=== PATIENT | male | born 1985 | race Caucasian/White ===

== ENCOUNTER 2019-11-09 05:57 | Emergency (ER) | payer SELFPAY ==
[~2019-11-09] VITALS: Ht 177.8 cm; Wt 120.7 kg
[2019-11-09] MEDS ORDERED: IV NORMAL SALINE 1000ML BAG 1,000 ML IV ONE (06:30)
[2019-11-09 06:45] LABS: BASO % 0 % (0-3); EOS % 1 % (0-3); HEMATOCRIT 39.9 % (39.0-53.0); HEMOGLOBIN 13.3 g/dL (13.0-17.5); LYMPH # 0.8 x10^3/uL (1.0-4.8); LYMPH % 16 % (24-48); MEAN CORPUSCULAR HEMOGLOBIN 28 pg (25-35); MEAN CORPUSCULAR HGB CONC 33 g/dL (31-37); MEAN CORPUSCULAR VOLUME 83 fL (79-100); MONO # 0.3 x10^3/uL (0.0-1.1); MONO % 5 % (0-9); NEUT % 78 % (31-73); PLATELET COUNT 288 x10^3/uL (140-400); WHITE BLOOD COUNT 5.2 x10^3/uL (4.0-11.0)
[2019-11-09 06:47] LABS: BILIRUBIN,URINE NEGATIVE (NEG); CLARITY,URINE CLEAR; COLOR,URINE YELLOW; NITRITE,URINE NEGATIVE (NEG); PH,URINE 6.5; PROTEIN,URINE NEGATIVE (NEG-TRACE)
[2019-11-09 06:55] LABS: BACTERIA,URINE 0 /HPF (0-FEW); RBC,URINE 0 /HPF (0-2); SQUAMOUS EPITHELIAL CELL,UR OCC /LPF; WBC,URINE OCC /HPF (0-4)
[2019-11-09 06:59] LABS: CALCIUM 8.7 mg/dL (8.5-10.1); CREATININE 0.8 mg/dL (0.7-1.3); POTASSIUM 3.4 mmol/L (3.5-5.1)
[2019-11-09] MEDS ORDERED: ONDANSETRON PF 4 MG/2 ML VIAL. IV ONE (07:00)
[2019-11-09 07:05] LABS: ALBUMIN 3.8 g/dL (3.4-5.0); TOTAL BILIRUBIN 0.3 mg/dL (0.2-1.0); TOTAL PROTEIN 7.6 g/dL (6.4-8.2)
--- NOTE | 2019-11-09 08:44 | PHYS DOC ---
Past Medical History Past Medical History: Diabetes-Type II, Seizure Past Surgical History: Other Additional Past Surgical Histo: RIGHT WRIST, B KNEE Alcohol Use: Rarely Drug Use: None Adult General Chief Complaint Chief Complaint: HYPOGLYCEMIA HPI HPI Patient is a 34 year old was brought here by EMS for evaluation of low blood sugar. Patient said he has history of diabetes, on insulin at home. Patient did not eat much last night, has some cramming his leg, woke up this morning with more cramming and feel really weak, family checked his blood sugar and it was in the 40s. Patient was given some juice to drink at home but his blood sugar continued to be low in the 50. EMS were called, they gave him an injection of glucagon. They checked his blood sugar on route here and it was 320. She denies any abdominal pain, no chest pain, no trouble breathing, no headache. All other ROS is negative unless otherwise noted in HPI Review of Systems Review of Systems See above Current Medications Current Medications Current Medications Medications (Trade) Dose Ordered Sig/Fausto Start Time Stop Time Status Last Admin Dose Admin Ondansetron HCl (Zofran) 4 mg 1X ONCE 11/09/19 07:00 11/09/19 07:01 DC Sodium Chloride 1,000 ml @ 1,000 mls/hr 1X ONCE 11/09/19 06:30 11/09/19 07:29 DC 11/09/19 06:30 1,000 MLS/HR Allergies Allergies Allergies Coded Allergies Type Severity Reaction Last Updated Verified No Known Drug Allergies 11/09/19 No Physical Exam Physical Exam See above Constitutional: Well developed, well nourished, no acute distress, non-toxic a ppearance. [] HENT: Normocephalic, atraumatic, bilateral external ears normal, oropharynx moist, no oral exudates, nose normal. [] Eyes: PERRLA, EOMI, conjunctiva normal, no discharge. [] Neck: Normal range of motion, no tenderness, supple, no stridor. [] Cardiovascular:Heart rate regular rhythm, no murmur [] Lungs & Thorax: Bilateral breath sounds clear to auscultation [] Abdomen: Bowel sounds normal, soft, no tenderness, no masses, no pulsatile masses. [] Skin: Warm, dry, no erythema, no rash. [] Back: No tenderness, no CVA tenderness. [] Extremities: No tenderness, no cyanosis, no clubbing, ROM intact, no edema. [] Neurologic: Alert and oriented X 3, normal motor function, normal sensory function, no focal deficits noted. [] Psychologic: Affect normal, judgement normal, mood normal. [] Current Patient Data Vital Signs Vital Signs Date Time Temp Pulse Resp B/P (MAP) Pulse Ox O2 Delivery O2 Flow Rate FiO2 11/09/19 08:54 87 20 131/75 (93) Room Air 11/09/19 07:33 98 11/09/19 06:11 98.0 98.0 Lab Values Laboratory Tests Test 11/09/19 06:05 11/09/19 06:06 11/09/19 06:30 11/09/19 08:01 White Blood Count 5.2 x10^3/uL (4.0-11.0) Red Blood Count 4.80 x10^6/uL (4.30-5.70) Hemoglobin 13.3 g/dL (13.0-17.5) Hematocrit 39.9 % (39.0-53.0) Mean Corpuscular Volume 83 fL (79-100) Mean Corpuscular Hemoglobin 28 pg (25-35) Mean Corpuscular Hemoglobin Concent 33 g/dL (31-37) Red Cell Distribution Width 14.0 % (11.5-14.5) Platelet Count 288 x10^3/uL (140-400) Neutrophils (%) (Auto) 78 % (31-73) H Lymphocytes (%) (Auto) 16 % (24-48) L Monocytes (%) (Auto) 5 % (0-9) Eosinophils (%) (Auto) 1 % (0-3) Basophils (%) (Auto) 0 % (0-3) Neutrophils # (Auto) 4.0 x10^3/uL (1.8-7.7) Lymphocytes # (Auto) 0.8 x10^3/uL (1.0-4.8) L Monocytes # (Auto) 0.3 x10^3/uL (0.0-1.1) Eosinophils # (Auto) 0.0 x10^3/uL (0.0-0.7) Basophils # (Auto) 0.0 x10^3/uL (0.0-0.2) Sodium Level 141 mmol/L (136-145) Potassium Level 3.4 mmol/L (3.5-5.1) L Chloride Level 104 mmol/L (98-107) Carbon Dioxide Level 30 mmol/L (21-32) Anion Gap 7 (6-14) Blood Urea Nitrogen 12 mg/dL (8-26) Creatinine 0.8 mg/dL (0.7-1.3) Estimated GFR (Cockcroft-Gault) 110.0 BUN/Creatinine Ratio 15 (6-20) Glucose Level 183 mg/dL (70-99) H Calcium Level 8.7 mg/dL (8.5-10.1) Total Bilirubin 0.3 mg/dL (0.2-1.0) Aspartate Amino Transferase (AST) 43 U/L (15-37) H Alanine Aminotransferase (ALT) 45 U/L (16-63) Alkaline Phosphatase 55 U/L (46-116) Total Protein 7.6 g/dL (6.4-8.2) Albumin 3.8 g/dL (3.4-5.0) Albumin/Globulin Ratio 1.0 (1.0-1.7) Glucose (Fingerstick) 146 mg/dL (70-99) H 300 mg/dL (70-99) H Urine Collection Type Unknown Urine Color Yellow Urine Clarity Clear Urine pH 6.5 Urine Specific [place] 1.010 Urine Protein Negative mg/dL (NEG-TRACE) Urine Glucose (UA) Negative mg/dL (NEG) Urine Ketones (Stick) Negative mg/dL (NEG) Urine Blood Negative (NEG) Urine Nitrite Negative (NEG) Urine Bilirubin Negative (NEG) Urine Urobilinogen Dipstick 1.0 mg/dL (0.2 mg/dL) Urine Leukocyte Esterase Negative (NEG) Urine RBC 0 /HPF (0-2) Urine WBC Occ /HPF (0-4) Urine Squamous Epithelial Cells Occ /LPF Urine Bacteria 0 /HPF (0-FEW) Laboratory Tests 11/09/19 06:05 Laboratory Tests 11/09/19 06:05 EKG EKG [] Radiology/Procedures Radiology/Procedures [] Course & Med Decision Making Course & Med Decision Making Pertinent Labs and Imaging studies reviewed. (See chart for details) he was given food to eat in the ER, his blood sugar had been stabilized. Patient will be discharged home. Dragon Disclaimer Dragon Disclaimer This electronic medical record was generated, in whole or in part, using a voice recognition dictation system. Departure Departure Impression: Primary Impression: Hypoglycemia Disposition: 01 HOME, SELF-CARE Condition: IMPROVED Referrals: UNKNOWN PCP NAME (PCP) follow up with your doctor this week. Patient Instructions: Hypoglycemia (Low Blood Sugar) KIM JUNE DO Nov 09, 2019 08:44
[2019-11-09 08:54] VITALS: BP 131/75
== END 2019-11-09 10:20 | disposition home or self-care (01) ==
LOC: ER 05:57
DX: E11.649 Type 2 diabetes mellitus with hypoglycemia without coma (principal); Z98.890 Other specified postprocedural states
CPT/HCPCS: 36415; 80053; 81001; 82962; 85025; 96360; 99284; J7030

== ENCOUNTER 2020-03-09 00:33 | Emergency (ER) | payer SELFPAY ==
[~2020-03-09] VITALS: Ht 177.8 cm; Wt 104.6 kg
[~2020-03-09 00:33] MED LIST: INSU100I13 SQ; INSU100I17 SQ
--- NOTE | 2020-03-09 00:43 | PHYS DOC ---
Past Medical History Past Medical History: Diabetes-Type I, Seizure Past Surgical History: Other Additional Past Surgical Histo: RIGHT WRIST, B KNEE Smoking Status: Never Smoker Alcohol Use: Rarely Drug Use: None General Adult EDM: Chief Complaint: HYPOGLYCEMIA HPI: HPI: Patient is a 34 year old male who presents with report of hypoglycemia and seizure activity this evening. Patient indicates that he has history of seizures and states that his last seizure was at least a couple months ago. Patient admits that he has not been taking his Dilantin for the last few days. He states that he tries to remember to take it but just doesn't always remember. He does admit to some tongue pain where he bit his tongue. He also admits to some all over body aches.[] Review of Systems: Review of Systems: Constitutional: Denies fever or chills. [] Respiratory: Denies cough or shortness of breath. [] Cardiovascular: Denies chest pain or edema. [] GI: Denies abdominal pain, nausea, vomiting, bloody stools or diarrhea. [] Musculoskeletal: Complains of back pain. [] Integument: Denies rash. [] Neurologic: Denies headache, focal weakness or sensory changes. Positive seizure activity. [] A full 10 point review of systems has been reviewed and is otherwise negative. Heart Score: Risk Factors: Risk Factors: DM, Current or recent (<one month) smoker, HTN, HLP, family history of CAD, obesity. Risk Scores: Score 0 - 3: 2.5% MACE over next 6 weeks - Discharge Home Score 4 - 6: 20.3% MACE over next 6 weeks - Admit for Clinical Observation Score 7 - 10: 72.7% MACE over next 6 weeks - Early Invasive Strategies Allergies: Allergies: Allergies Coded Allergies Type Severity Reaction Last Updated Verified No Known Drug Allergies 11/09/19 No Physical Exam: PE: Constitutional: Well developed, well nourished, no acute distress, non-toxic gregorio earance. [] HENT: Normocephalic, atraumatic, bilateral external ears normal, oropharynx moist, no oral exudates, nose normal. [] Eyes: PERRLA, EOMI, conjunctiva normal, no discharge. [] Neck: Normal range of motion, no tenderness, supple, no stridor. [] Cardiovascular: Regular rate and rhythm[] Lungs & Thorax: Bilateral breath sounds clear to auscultation [] Abdomen: Bowel sounds normal, soft, no tenderness. [] Skin: Warm, dry, no erythema, no rash. [] Extremities: No tenderness, no cyanosis, no clubbing, ROM intact. [] Neurologic: Alert and oriented X 3, no focal deficits noted. [] EKG: EKG: [] Radiology/Procedures: Radiology/Procedures: [] Course & Med Decision Making: Course & Med Decision Making Pertinent Labs and Imaging studies reviewed. (See chart for details) [] Dragon Disclaimer: Dragon Disclaimer: This electronic medical record was generated, in whole or in part, using a voice recognition dictation system. Departure Departure Impression: Primary Impression: Seizure Disposition: HOME, SELF-CARE Condition: STABLE Referrals: UNKNOWN PCP NAME (PCP) Patient Instructions: Seizure, Adult KANWAL MEDINA Jr. DO Mar 09, 2020 00:43
[2020-03-09 01:14] LABS: BASO % 1 % (0-3); EOS # 0.4 x10^3/uL (0.0-0.7); EOS % 5 % (0-3); HEMATOCRIT 35.5 % (39.0-53.0); HEMOGLOBIN 11.9 g/dL (13.0-17.5); LYMPH # 1.6 x10^3/uL (1.0-4.8); LYMPH % 21 % (24-48); MEAN CORPUSCULAR HEMOGLOBIN 28 pg (25-35); MEAN CORPUSCULAR HGB CONC 34 g/dL (31-37); MEAN CORPUSCULAR VOLUME 83 fL (79-100); MONO # 0.4 x10^3/uL (0.0-1.1); MONO % 5 % (0-9); NEUT # 5.2 x10^3/uL (1.8-7.7); NEUT % 68 % (31-73); PLATELET COUNT 213 x10^3/uL (140-400); RED BLOOD COUNT 4.26 x10^6/uL (4.30-5.70); RED CELL DISTRIBUTION WIDTH 14.1 % (11.5-14.5); WHITE BLOOD COUNT 7.6 x10^3/uL (4.0-11.0)
[2020-03-09 01:24] LABS: ANION GAP 10 (6-14); BLOOD UREA NITROGEN 12 mg/dL (8-26); BUN/CREATININE RATIO 15 (6-20); CALCIUM 8.4 mg/dL (8.5-10.1); CARBON DIOXIDE 28 mmol/L (21-32); CHLORIDE 101 mmol/L (98-107); CREATININE 0.8 mg/dL (0.7-1.3); GLUCOSE 133 mg/dL (70-99); POTASSIUM 3.8 mmol/L (3.5-5.1); SODIUM 139 mmol/L (136-145)
[2020-03-09 01:29] LABS: ALBUMIN 3.8 g/dL (3.4-5.0); ALBUMIN/GLOBULIN RATIO 1.4 (1.0-1.7); ALK PHOS 53 U/L (46-116); ALT (SGPT) 27 U/L (16-63); AST (SGOT) 18 U/L (15-37); TOTAL BILIRUBIN 0.4 mg/dL (0.2-1.0); TOTAL PROTEIN 6.5 g/dL (6.4-8.2)
[2020-03-09 01:32] LABS: PHENY < 0.5 mcg/mL (10.0-20.0)
[2020-03-09] MEDS ORDERED: FOSPHENYTOIN 1,000 MG in IV NORMAL SALINE 50ML 50 ML IV ONE (02:00)
[2020-03-09 02:42] VITALS: BP 115/58
== END 2020-03-09 03:00 | disposition home or self-care (01) ==
LOC: ER 00:33
DX: R56.9 Unspecified convulsions (principal); E10.649 Type 1 diabetes mellitus with hypoglycemia without coma; K14.6 Glossodynia; Z98.890 Other specified postprocedural states
CPT/HCPCS: 36415; 80053; 80185; 82962; 85025; 96365; 99285; Q2009

== ENCOUNTER 2020-09-25 13:04 | Emergency (ER) | payer SELFPAY ==
[~2020-09-25] VITALS: Ht 180.3 cm; Wt 104.0 kg
[2020-09-25 13:52] LABS: CALCIUM 8.8 mg/dL (8.5-10.1); CREATININE 0.8 mg/dL (0.7-1.3); GFR 109.4; POTASSIUM 3.4 mmol/L (3.5-5.1)
[2020-09-25 14:06] VITALS: BP 113/82
--- NOTE | 2020-09-25 14:56 | ED.ADGEN ---
Past Medical History Past Medical History: Diabetes-Type I, Seizure Past Surgical History: Other Additional Past Surgical Histo: RIGHT WRIST, BILATERAL KNEE Smoking Status: Never Smoker Alcohol Use: Rarely Drug Use: None General Adult EDM: Chief Complaint: HYPOGLYCEMIA HPI: HPI: Patient is a 35-year-old male with type 1 diabetes who presents to the emergency room after having an episode of hypoglycemia. Patient states he took his home insulin and was good to go have blood discharge but got distracted. Upon EMS arrival he had a glucose of 23. He was given glucose tablets. Upon arrival to the emergency room he is a glucose of 80 after treatment by EMS. He has no fur ther complaints. He has not had any recent insulin changes. Review of Systems: Review of Systems: General: Denies fever, chills, sweats, fatigue Eyes: Denies drainage, blurred vision, eye redness HENT: Denies rhinorrhea, sore throat, earache Respiratory: Denies cough, shortness of breath, wheezing Cardiac: Denies edema, palpitations, chest pain GI: Denies abdominal pain, Nausea, vomiting MSK: Denies back pain, neck pain Skin: Denies rash, jaundice Neuro: Denies headache, dizziness Psychiatric: Denies SI/HI Allergies: Allergies: Allergies Coded Allergies Type Severity Reaction Last Updated Verified No Known Drug Allergies 11/09/19 No Physical Exam: PE: General: Awake, alert, NAD. Well Nourished, well hydrated. Cooperative HEENT: Atraumatic, EOMI, PERRL, airway patent, moist oral mucosa Neck: Supple, trachea midline Respiratory: CTA bilaterally, normal effort, no wheezing/crackles CV: RRR, no murmur, cap refill <2 GI: Soft, nondistended, nontender, no masses MSK: No obvious deformities Skin: Warm, dry, intact Neuro: A&O x3, speech NL, sensory and motor grossly intact, no focal deficits Psych: Normal affect, normal mood, not suicidal or homicidal Current Patient Data: Labs: Laboratory Tests Test 09/25/20 13:09 09/25/20 13:10 09/25/20 14:42 Glucose (Fingerstick) 80 mg/dL (70-99) 109 mg/dL (70-99) H Sodium Level 142 mmol/L (136-145) Potassium Level 3.4 mmol/L (3.5-5.1) L Chloride Level 103 mmol/L (98-107) Carbon Dioxide Level 31 mmol/L (21-32) Anion Gap 8 (6-14) Blood Urea Nitrogen 14 mg/dL (8-26) Creatinine 0.8 mg/dL (0.7-1.3) Estimated GFR (Cockcroft-Gault) 109.4 Glucose Level 48 mg/dL (70-99) L Calcium Level 8.8 mg/dL (8.5-10.1) Laboratory Tests 09/25/20 13:10 Vital Signs: Vital Signs Date Time Temp Pulse Resp B/P (MAP) Pulse Ox O2 Delivery O2 Flow Rate FiO2 09/25/20 13:10 61 16 129/74 (92) 99 Room Air EKG: EKG: [] Heart Score: Risk Factors: Risk Factors: DM, Current or recent (<one month) smoker, HTN, HLP, family history of CAD, obesity. Risk Scores: Score 0 - 3: 2.5% MACE over next 6 weeks - Discharge Home Score 4 - 6: 20.3% MACE over next 6 weeks - Admit for Clinical Observation Score 7 - 10: 72.7% MACE over next 6 weeks - Early Invasive Strategies Radiology/Procedures: Radiology/Procedures: [] Course & Med Decision Making: Course & Med Decision Making Pertinent Labs and Imaging studies reviewed. (See chart for details) Patient is 35-year-old male who presents to the emergency room after an episode of hypoglycemia. Patient is feeling much better after treatment. He will be given food here in the emergency room and then rechecked. Repeat glucose was normal at that he remained stable at this time. [id number] Patient's test results and vitals while in the ED were fully reviewed and discussed with the patient. Patient is stable and at this time does not need admission to the [facility]. We have discussed strict return precautions and the importance of following up with their Primary Care Physician. Patient stated understanding and was given an opportunity to ask any questions. Patient is in agreement with plan. Dragon Disclaimer: Dragon Disclaimer: This electronic medical record was generated, in whole or in part, using a voice recognition dictation system. Departure Departure Impression: Primary Impression: Hypoglycemia Disposition: 01 DC HOME SELF CARE/HOMELESS Condition: STABLE Referrals: SYL HOLLAND MD (PCP) Patient Instructions: Hypoglycemia (Low Blood Sugar) DELANEY MYERS MD Sep 25, 2020 14:56
[2020-09-25 15:46] LABS: BILIRUBIN,URINE NEGATIVE (NEG); CLARITY,URINE CLEAR; COLOR,URINE YELLOW; NITRITE,URINE NEGATIVE (NEG); PH,URINE 6.5 (<5.0-8.0); PROTEIN,URINE NEGATIVE (NEG-TRACE)
[2020-09-25 15:53] LABS: BACTERIA,URINE 0 /HPF (0-FEW); RBC,URINE 0 /HPF (0-2); WBC,URINE 0 /HPF (0-4)
== END 2020-09-25 15:59 | disposition home or self-care (01) ==
LOC: ER 13:04
DX: E10.649 Type 1 diabetes mellitus with hypoglycemia without coma (principal); Z79.4 Long term (current) use of insulin
CPT/HCPCS: 36415; 80048; 81001; 82962; 99283

== ENCOUNTER 2020-11-06 06:42 | Emergency (ER) | payer SELFPAY ==
[~2020-11-06] VITALS: Ht 177.8 cm; Wt 102.3 kg
[2020-11-06 06:46] VITALS: BP 139/63
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
[2020-11-06 08:16] LABS: BASO % 0 % (0-3); EOS # 0.1 x10^3/uL (0.0-0.7); EOS % 1 % (0-3); HEMATOCRIT 39.9 % (39.0-53.0); HEMOGLOBIN 13.6 g/dL (13.0-17.5); LYMPH % 14 % (24-48); MEAN CORPUSCULAR HEMOGLOBIN 29 pg (25-35); MEAN CORPUSCULAR HGB CONC 34 g/dL (31-37); MEAN CORPUSCULAR VOLUME 85 fL (79-100); MONO # 0.4 x10^3/uL (0.0-1.1); MONO % 5 % (0-9); NEUT # 5.3 x10^3/uL (1.8-7.7); NEUT % 79 % (31-73); PLATELET COUNT 213 x10^3/uL (140-400); RED BLOOD COUNT 4.72 x10^6/uL (4.30-5.70); RED CELL DISTRIBUTION WIDTH 13.8 % (11.5-14.5); WHITE BLOOD COUNT 6.8 x10^3/uL (4.0-11.0)
[2020-11-06 08:22] LABS: CREATININE 0.6 mg/dL (0.7-1.3); GFR 152.4; POTASSIUM 3.9 mmol/L (3.5-5.1)
[2020-11-06 08:27] LABS: ALBUMIN 4.4 g/dL (3.4-5.0); ALBUMIN/GLOBULIN RATIO 1.3 (1.0-1.7); TOTAL BILIRUBIN 0.5 mg/dL (0.2-1.0); TOTAL PROTEIN 7.8 g/dL (6.4-8.2)
== END 2020-11-06 09:00 | disposition home or self-care (01) ==
LOC: ER 06:42
DX: E10.649 Type 1 diabetes mellitus with hypoglycemia without coma (principal); Z88.2 Allergy status to sulfonamides
CPT/HCPCS: 36415; 80053; 82962; 85025; 99283

== ENCOUNTER 2022-03-06 22:28 | Inpatient (IN) | payer SELFPAY ==
[~2022-03-06] VITALS: Ht 185.4 cm; Wt 122.0 kg
[2022-03-06] MEDS ORDERED: NOREPINEPHRINE VIAL 8 MG in IV DEXTROSE 5% 250 ML IV ONE ×2 (22:45→23:45)
[2022-03-06] MEDS ORDERED: IV NORMAL SALINE 1000ML BAG 1,000 ML IV ONE (22:45)
[2022-03-06 22:52] LABS: BASO # 0.1 x10^3/uL (0.0-0.2); BASO % 0 % (0-3); EOS # 0.2 x10^3/uL (0.0-0.7); EOS % 1 % (0-3); HEMATOCRIT 46.2 % (39.0-53.0); HEMOGLOBIN 12.2 g/dL (13.0-17.5); LYMPH # 5.5 x10^3/uL (1.0-4.8); LYMPH % 24 % (24-48); MEAN CORPUSCULAR HEMOGLOBIN 28 pg (25-35); MEAN CORPUSCULAR HGB CONC 27 g/dL (31-37); MEAN CORPUSCULAR VOLUME 107 fL (79-100); MONO # 0.8 x10^3/uL (0.0-1.1); MONO % 4 % (0-9); NEUT # 16.4 x10^3/uL (1.8-7.7); NEUT % 71 % (31-73); PLATELET COUNT 260 x10^3/uL (140-400); RED BLOOD COUNT 4.33 x10^6/uL (4.30-5.70); RED CELL DISTRIBUTION WIDTH 15.1 % (11.5-14.5); WHITE BLOOD COUNT 22.9 x10^3/uL (4.0-11.0)
[2022-03-06] MEDS ORDERED: AMIODARONE 450 MG in IV DEXTROSE 5% 250 ML IV ONE (23:00)
[2022-03-06] MEDS ORDERED: PIPERACILLIN/TAZOBACTAM 4.5 GM in IV DEXTROSE 5% 100ML 100 ML IV ONE (23:00)
[2022-03-06] MEDS ORDERED: EPINEPHrine VIAL 5 MG in IV NORMAL SALINE 250ML 250 ML IV ONE (23:00)
[2022-03-06] MEDS ORDERED: VANCOMYCIN 1.5 GM in IV NORMAL SALINE 500ML BAG 500 ML IV ONE (23:00)
[2022-03-06 23:01] LABS: PROTHROMBIN TIME PATIENT 22.6 SEC (11.7-14.0)
[2022-03-06 23:06] LABS: FIO2 ABG 100; PO2 ABG 176 mmHg (85-108); SAT O2 ABG 97 % (92-99)
[2022-03-06 23:13] LABS: ACETAMIN < 2 mcg/ml (10-30); ETHANOL < 10 mg/dL (0-10); SALIC 3.7 mg/dL (2.8-20.0)
[2022-03-06] MEDS ORDERED: SODIUM BICARBONATE VIAL 150 MEQ in IV DEXTROSE 5% 1,000 ML IV ONE (23:15)
[2022-03-06 23:16] LABS: ALBUMIN/GLOBULIN RATIO 1.1 (1.0-1.7); CREATININE 3.8 mg/dL (0.7-1.3); TOTAL BILIRUBIN 0.5 mg/dL (0.2-1.0); TOTAL PROTEIN 5.8 g/dL (6.4-8.2)
--- NOTE | 2022-03-06 23:38 | PHYS DOC ---
Past Medical History Past Medical History: Diabetes-Type I Past Surgical History: No Surgical History Additional Past Surgical Histo: Wrist, bilateral knees Smoking Status: Never Smoker Alcohol Use: Occasionally Drug Use: None Adult General Chief Complaint Chief Complaint: CPR/FULL ARREST HPI HPI The patient is a 36-year-old male with a history of type 1 diabetes. He presen ts via EMS in cardiac arrest after a witnessed cardiac arrest in the field prior to arrival. Patient was witnessed to become unresponsive. Family initially thought that he was hypoglycemic so they gave him sugarcontaining fluids orally. When this did not work, they checked a pulse and found him to be pulseless. They then initiated bystander CPR. EMS were called. They arrived on scene within 5 to 7 minutes. Initial rhythm was asystole. Resuscitation proceeded as per ACLS algorithm in the field. Patient received a total of about 25 minutes of prehospital ACLS with a number of rounds of epinephrine. Ventricular fibrillation was seen on the monitor at at least 2 pulse checks and so patient was defibrillated at least twice before he arrived here. He was also given a dose of lidocaine. Blood glucose was above 500 for EMS. IV fluids were given prehospital. Upon arrival to the emergency department patient is in cardiac arrest. He is cool and pale and pupils are fixed and dilated. Patient was intubated prehospital but the cuff was leaking and so the endotracheal tube was switched out to a new one by me using video laryngoscopy without complication. Resuscitation proceeded with high-quality chest compressions. Rhythm at all pulse checks was PEA for us. Working theory was a hyperkalemic arrest in the setting of diabetic ketoacidosis so calcium chloride x2 and bicarbonate x2 were given during resuscitation along with epinephrine as per ACLS protocol. 300 mg of amiodarone were also given due to reported V. fib noted prehospital. Additional IV fluids were also hung. With these interventions, ROSC was obtained. An initial transient return of circulation with a round of chest compressions in between was followed by a more lasting return of spontaneous circulation. Initial heart rate was in the 50s so atropine was given without improvement. Levophed and then epinephrine were started for pressure support. Labs drawn and sent. Empiric broad-spectrum antibiotics ordered after cultures. EKG obtained and shows narrow complex rhythm without acute ST elevation. Hypothermia protocol initiated in the emergency department. ABG obtained and serum pH and serum bicarb too low to measure. Bicarbonate drip started. Right internal jugular central venous catheter placed by me without complication. ET tube noted to be high on chest x-ray and advanced. RIJ CVC in acceptable position. No PTX or confluent infiltrates. With all of the above interventions, patient stabilized. Labs coming back and reveal apparent severe diabetic ketoacidosis with severe hyperglycemia and severe electrolyte derangements including severe hyperkalemia. Hospitalist Dr. López came to bedside at 2330 to evaluate the patient and assume care. I called and spoke with Dr. Hand of nephrology who agrees with emergent hemodialysis and will facilitate it. Dr. López is initiating DKA treatment protocol and calling IR to have a temp dialysis catheter placed. Patient going to the ICU. No family have shown up and I attempted to call all of the telephone numbers in the patient's medical record and was not able to reach any family members to update them. Review of Systems Review of Systems Unable to obtain secondary to cardiac arrest. Current Medications Current Medications Current Medications Medications (Trade) Dose Ordered Sig/Fausto Start Time Stop Time Status Last Admin Dose Admin Amiodarone HCl 450 mg/Dextrose 259 ml @ 33 mls/hr 1X ONCE 03/06/22 23:00 03/07/22 06:50 03/06/22 23:36 33 MLS/HR Epinephrine HCl 5 mg/Sodium Chloride 255 ml @ 37.332 mls/ hr ONCE ONCE 03/06/22 23:00 03/07/22 05:56 03/06/22 23:44 37.332 MLS/HR Norepinephrine Bitartrate 8 mg/ Dextrose 258 ml @ 23.607 mls/ hr 1X ONCE 03/06/22 23:45 03/07/22 10:40 Piperacillin Sod/ Tazobactam Sod 4.5 gm/Dextrose 100 ml @ 200 mls/hr 1X ONCE 03/06/22 23:00 03/06/22 23:29 DC Sodium Bicarbonate 150 meq/Dextrose 1,150 ml @ 75 mls/hr [id number] ONCE 03/06/22 23:15 03/07/22 14:34 Sodium Chloride 1,000 ml @ 1,000 mls/hr 1X ONCE 03/06/22 22:45 03/06/22 23:44 DC Vancomycin HCl 1.5 gm/Sodium Chloride 500 ml @ 250 mls/hr 1X ONCE 03/06/22 23:00 03/07/22 00:59 Allergies Allergies Allergies Coded Allergies Type Severity Reaction Last Updated Verified Sulfa (Sulfonamide Antibiotics) Allergy Intermediate 11/06/20 Yes Physical Exam Physical Exam 36-year-old male who is unresponsive and pulseless. Head is normocephalic and atraumatic. Neck is supple and nontender. Oropharynx is moist. Lungs are clear to auscultation at all stations. Referred breath sounds from [id number] ventilations. No cardiac tones auscultated. Abdomen soft and nondistended. Skin is cool and dry. Psychiatrically, the patient cannot be assessed secondary to unresponsiveness. Neurologically, GCS 3, unresponsive. Current Patient Data Vital Signs Vital Signs Date Time Temp Pulse Resp B/P (MAP) Pulse Ox O2 Delivery O2 Flow Rate FiO2 03/06/22 23:11 92.4 0 25 100/59 (73) 100 Bag Valve Mask 92.4 Lab Values Laboratory Tests Test 03/06/22 22:40 03/06/22 22:55 White Blood Count 22.9 x10^3/uL (4.0-11.0) H Red Blood Count 4.33 x10^6/uL (4.30-5.70) Hemoglobin 12.2 g/dL (13.0-17.5) L Hematocrit 46.2 % (39.0-53.0) Mean Corpuscular Volume 107 fL (79-100) H Mean Corpuscular Hemoglobin 28 pg (25-35) Mean Corpuscular Hemoglobin Concent 27 g/dL (31-37) L Red Cell Distribution Width 15.1 % (11.5-14.5) H Platelet Count 260 x10^3/uL (140-400) Neutrophils (%) (Auto) 71 % (31-73) Lymphocytes (%) (Auto) 24 % (24-48) Monocytes (%) (Auto) 4 % (0-9) Eosinophils (%) (Auto) 1 % (0-3) Basophils (%) (Auto) 0 % (0-3) Neutrophils # (Auto) 16.4 x10^3/uL (1.8-7.7) H Lymphocytes # (Auto) 5.5 x10^3/uL (1.0-4.8) H Monocytes # (Auto) 0.8 x10^3/uL (0.0-1.1) Eosinophils # (Auto) 0.2 x10^3/uL (0.0-0.7) Basophils # (Auto) 0.1 x10^3/uL (0.0-0.2) Platelet Estimate Pending Prothrombin Time 22.6 SEC (11.7-14.0) H Prothrombin Time INR 2.1 (0.8-1.1) H Activated Partial Thromboplast Time 44 SEC (24-38) H Sodium Level 145 mmol/L (136-145) Potassium Level 7.0 mmol/L (3.5-5.1) *H Chloride Level 101 mmol/L (98-107) Carbon Dioxide Level 11 mmol/L (21-32) *L Anion Gap 33 (6-14) H Blood Urea Nitrogen 58 mg/dL (8-26) H Creatinine 3.8 mg/dL (0.7-1.3) H Estimated GFR (Cockcroft-Gault) 18.0 BUN/Creatinine Ratio 15 (6-20) Glucose Level 1001 mg/dL (70-99) *H Lactic Acid Level 14.7 mmol/L (0.4-2.0) *H Calcium Level 18.0 mg/dL (8.5-10.1) *H Magnesium Level 4.9 mg/dL (1.8-2.4) H Total Bilirubin 0.5 mg/dL (0.2-1.0) Aspartate Amino Transferase (AST) 129 U/L (15-37) H Alanine Aminotransferase (ALT) 91 U/L (16-63) H Alkaline Phosphatase 79 U/L (46-116) Troponin I High Sensitivity 58 ng/L (4-75) Total Protein 5.8 g/dL (6.4-8.2) L Albumin 3.0 g/dL (3.4-5.0) L Albumin/Globulin Ratio 1.1 (1.0-1.7) Procalcitonin 7.11 ng/mL (0.00-0.10) H Salicylates Level 3.7 mg/dL (2.8-20.0) Salicylate Last Dose Date Unk Salicylate Last Dose Time Unk Acetaminophen Level < 2 mcg/ml (10-30) L Acetaminophen Last Dose Date Unk Acetaminophen Last Dose Time Unk Ethyl Alcohol Level < 10 mg/dL (0-10) Acetone Level Mod pos (NEG) O2 Saturation 97 % (92-99) Arterial Blood pH Pending Arterial Blood pCO2 at Patient Temp Pending Arterial Blood pO2 at Patient Temp 176 mmHg (85-108) H Arterial Blood HCO3 Pending FiO2 100 Laboratory Tests 03/06/22 22:40 Laboratory Tests 03/06/22 22:40 EKG EKG Sinus rhythm, rate 67, no acute ST elevation or depression, rate 67, QRS 156, QTc 462, EP interpretation. Nonischemic tracing. Prolonged QRS. Radiology/Procedures Radiology/Procedures INDICATION: Reason: cardiac arrest / Spl. Instructions: / History: COMPARISON: January 2020 FINDINGS: Single view of chest obtained. Right-sided vascular catheter is seen projecting over the SVC. Endotracheal tube projecting over the mid thoracic trachea region. Enlarged cardiomediastinal silhouette. Multiple bilateral rib fractures with callus formation again seen. There is some interstitial and groundglass opacities bilaterally. IMPRESSION: * Interstitial and groundglass opacities bilaterally which could be from edema or bilateral infiltrate. * Enlarged cardiomediastinal silhouette. A portion of this is likely exaggerated by portable technique but enlarged heart or pericardial effusion are not excluded. Electronically signed by: Natalya Lima MD (03/06/2022 11:43 PM) DESKTOP- [id number] DICTATED and SIGNED BY: NATALYA LIMA MD DATE: 03/06/222339 .Indication: Respiratory failure Consent: Unable to give consent due to emergent nature. Medications Used: see nursing note Procedure: The patient was placed in the appropriate position. Intubation was p erformed using VL with a 7.5Fr endotracheal tube. Secured at 24cm at lips. Initial confirmation of placement included bilateral breath sounds, tube fogging, adequate chest rise, adequate pulse oximetry reading. A chest x-ray to verify correct placement of the tube showed appropriate tube position. The patient tolerated the procedure well. Complications: none. Indication: Vascular access Consent: Emergent Procedure: The patient was positioned appropriately and the skin over the RIJ was prepped and draped in a sterile fashion. Local anesthesia was used. Ultrasound guidance utilized. A large bore needle was used to identify the vein. A guide wire was then inserted into the vein through the needle. A triple lumen catheter was then inserted into the vessel over the guide wire using the Seldinger technique. All ports showed good, free flowing blood return and were flushed with saline solution. The catheter was then securely fastened to the skin with sutures and covered with a sterile dressing. A post procedure X-ray was ordered. The patient tolerated the procedure well. Complications: none. Course & Med Decision Making Course & Med Decision Making Stabilized to the best of our ability here in the emergency department but very critically sick post cardiac arrest. As above I was unable to reach any family. Transferring to the ICU in critical condition at this time. Patient will stop at the CT scanner for imaging on the way to the ICU. Critical care time was 140 minutes independent of any separately billed procedure time. Dragon Disclaimer Dragon Disclaimer This electronic medical record was generated, in whole or in part, using a voice recognition dictation system. Departure Departure Impression: Primary Impression: Cardiac arrest Additional Impressions: Acute hyperkalemia Diabetic ketoacidosis Shock Acute hypoxemic respiratory failure Disposition: ADMITTED INPATIENT Condition: CRITICAL Referrals: SYL HOLLAND MD (PCP) Problem Qualifiers Additional Impressions: Diabetic ketoacidosis Diabetes mellitus type: type 1 Diabetes mellitus complication detail: with coma Qualified Codes: E10.11 - Type 1 diabetes mellitus with ketoacidosis with coma ELAINE MARX MD Mar 06, 2022 23:38
--- NOTE | 2022-03-06 23:41 | PDOC1 ---
History and Physical Date of Service: DOS: DATE: 03/06/22 TIME: 23:38 Chief Complaint: Chief Complain: unresponsive History of Present Illness: HPI: 36-year-old male with past medical history of diabetes mellitus type 1. He is brought to this facility after cardiac arrest that was witnessed in the field prior to arrival. There were witnesses said that the patient did become unresponsive. Family was present and they gave him oral sugar fluids because they thought he was hypoglycemic. Pulse was checked at the time and he was found to be pulseless. CPR was initiated. EMS arrived within 5 minutes. Initial rhythm was asystole. ACLS was initiated. 25 minutes of ACLS protocol was run before arrival to the hospital. Patient shocked twice for V. fib. Sugar on arrival was 500. After continuing ACLS ROSC he was achieved. Patient was intubated without sedation. Vasopressor with Levophed and epinephrine was continued. Empiric antibiotics started. EKG was normal without any acute ST elevations. Hypothermia protocol initiated. This is hospitalist assumed care at 2330. Nephrology was consulted for hemodialysis emergently for severe acidosis and severe hyperkalemia. IR was consulted for HD temporary catheter placement. Admitted to ICU for further management. Past Medical/Surgical History: PMH/PSH: Past Medical History: Diabetes-Type I Past Surgical History: Wrist, bilateral knees Allergies: Allergies: Coded Allergies: Sulfa (Sulfonamide Antibiotics) (Verified Allergy, Intermediate, 11/06/20) Family History: Family History: REviewed with no relative findings in the chart Social History: Social History: Smoking Status: Never Smoker Alcohol Use: Occasionally Drug Use: None Current Medications: Current Medications Current Medications Norepinephrine Bitartrate 8 mg/ Dextrose 258 ml @ 19.737 mls/ hr 1X ONCE IV ; Start 03/06/22 at 22:45; Stop 03/06/22 at 22:46; Status Cancel Vancomycin HCl 1.5 gm/Sodium Chloride 500 ml @ 250 mls/hr 1X ONCE IV ; Start 03/06/22 at 23:00; Stop 03/07/22 at 00:59 Piperacillin Sod/ Tazobactam Sod 4.5 gm/Dextrose 100 ml @ 200 mls/hr 1X ONCE IV ; Start 03/06/22 at 23:00; Stop 03/06/22 at 23:29; Status DC Sodium Chloride 1,000 ml @ 1,000 mls/hr 1X ONCE IV ; Start 03/06/22 at 22:45; Stop 03/06/22 at 23:44 Norepinephrine Bitartrate 8 mg/ Dextrose 258 ml @ 23.607 mls/ hr 1X ONCE IV ; Start 03/06/22 at 22:45; Stop 03/07/22 at 09:40; Status UNV Epinephrine HCl 5 mg/Sodium Chloride 255 ml @ 37.332 mls/ hr ONCE ONCE IV ; Start 03/06/22 at 23:00; Stop 03/07/22 at 05:56 Amiodarone HCl 450 mg/Dextrose 259 ml @ 33 mls/hr 1X ONCE IV Last administered on 03/06/22at 23:36; Start 03/06/22 at 23:00; Stop 03/07/22 at 06:50 Sodium Bicarbonate 150 meq/Dextrose 1,150 ml @ 75 mls/hr [id number] ONCE IV ; Start 03/06/22 at 23:15; Stop 03/07/22 at 14:34 Norepinephrine Bitartrate 8 mg/ Dextrose 258 ml @ 23.607 mls/ hr 1X ONCE IV ; Start 03/06/22 at 23:45; Stop 03/07/22 at 10:40 Active Scripts Active Reported Novolog Flexpen (Insulin Aspart) 100 Unit/1 Ml Insuln.pen 1 Unit SQ TIDBFRMEAL PRN Lantus Solostar (Insulin Glargine,Hum.rec.anlog) 100 Unit/1 Ml Insuln.pen 65 Unit SQ DAILY ROS: Review of Systems Review of System REVIEW OF SYSTEMS: Patient is intubated and in status postcardiac arrest Physical Exam: Vital Signs: Vital Signs Date Time Temp Pulse Resp B/P (MAP) Pulse Ox O2 Delivery O2 Flow Rate FiO2 03/06/22 23:11 92.4 0 25 100/59 (73) 100 Bag Valve Mask 92.4 Physcial Exam: GEN: Intubated and sedated HEENT: Normal cephalic, atraumatic, external auditory canals are patent EYES: Pupils are equally dilated and fixed. Does not react to light. MUSCULOSKELETAL: Well developed ENDOCRINE: No thyromegaly was palpated LYMPHATICS: No cervical chain or axillary nodes were noted HEMATOPOIETIC: No bruising NECK: Supple, no JVD, no thyromegaly was noted LUNGS: Bilateral crackles HEART: RRR, Peripheral pulses intact, no obvious murmurs noted ABDOMEN: Soft, nontender. Positive bowel sounds, no organomegaly, normal bowel sounds EXTREMITIES: Without clubbing, cyanosis, or edema. Pedal pulses intact. Negative Homans sign NEUROLOGIC: Currently sedated SKIN: No ulcerations or rashes, good skin turgor, no jaundice Labs: Labs: Laboratory Tests Test 03/06/22 22:40 03/06/22 22:55 White Blood Count 22.9 x10^3/uL (4.0-11.0) Red Blood Count 4.33 x10^6/uL (4.30-5.70) Hemoglobin 12.2 g/dL (13.0-17.5) Hematocrit 46.2 % (39.0-53.0) Mean Corpuscular Volume 107 fL (79-100) Mean Corpuscular Hemoglobin 28 pg (25-35) Mean Corpuscular Hemoglobin Concent 27 g/dL (31-37) Red Cell Distribution Width 15.1 % (11.5-14.5) Platelet Count 260 x10^3/uL (140-400) Neutrophils (%) (Auto) 71 % (31-73) Lymphocytes (%) (Auto) 24 % (24-48) Monocytes (%) (Auto) 4 % (0-9) Eosinophils (%) (Auto) 1 % (0-3) Basophils (%) (Auto) 0 % (0-3) Neutrophils # (Auto) 16.4 x10^3/uL (1.8-7.7) Lymphocytes # (Auto) 5.5 x10^3/uL (1.0-4.8) Monocytes # (Auto) 0.8 x10^3/uL (0.0-1.1) Eosinophils # (Auto) 0.2 x10^3/uL (0.0-0.7) Basophils # (Auto) 0.1 x10^3/uL (0.0-0.2) Prothrombin Time 22.6 SEC (11.7-14.0) Prothromb Time International Ratio 2.1 (0.8-1.1) Activated Partial Thromboplast Time 44 SEC (24-38) Sodium Level 145 mmol/L (136-145) Potassium Level 7.0 mmol/L (3.5-5.1) Chloride Level 101 mmol/L (98-107) Carbon Dioxide Level 11 mmol/L (21-32) Anion Gap 33 (6-14) Blood Urea Nitrogen 58 mg/dL (8-26) Creatinine 3.8 mg/dL (0.7-1.3) Estimated GFR (Cockcroft-Gault) 18.0 BUN/Creatinine Ratio 15 (6-20) Glucose Level 1001 mg/dL (70-99) Lactic Acid Level 14.7 mmol/L (0.4-2.0) Calcium Level 18.0 mg/dL (8.5-10.1) Magnesium Level 4.9 mg/dL (1.8-2.4) Total Bilirubin 0.5 mg/dL (0.2-1.0) Aspartate Amino Transf (AST/SGOT) 129 U/L (15-37) Alanine Aminotransferase (ALT/SGPT) 91 U/L (16-63) Alkaline Phosphatase 79 U/L (46-116) Troponin I High Sensitivity 58 ng/L (4-75) Total Protein 5.8 g/dL (6.4-8.2) Albumin 3.0 g/dL (3.4-5.0) Albumin/Globulin Ratio 1.1 (1.0-1.7) Salicylates Level 3.7 mg/dL (2.8-20.0) Salicylate Last Dose Date Unk Salicylate Last Dose Time Unk Acetaminophen Level < 2 mcg/ml (10-30) Acetaminophen Last Dose Date Unk Acetaminophen Last Dose Time Unk Ethyl Alcohol Level < 10 mg/dL (0-10) Acetone Level Mod pos (NEG) O2 Saturation 97 % (92-99) Arterial Blood pO2 at Patient Temp 176 mmHg (85-108) FiO2 100 Laboratory Tests Test 03/06/22 22:40 03/06/22 22:55 White Blood Count 22.9 x10^3/uL (4.0-11.0) Red Blood Count 4.33 x10^6/uL (4.30-5.70) Hemoglobin 12.2 g/dL (13.0-17.5) Hematocrit 46.2 % (39.0-53.0) Mean Corpuscular Volume 107 fL (79-100) Mean Corpuscular Hemoglobin 28 pg (25-35) Mean Corpuscular Hemoglobin Concent 27 g/dL (31-37) Red Cell Distribution Width 15.1 % (11.5-14.5) Platelet Count 260 x10^3/uL (140-400) Neutrophils (%) (Auto) 71 % (31-73) Lymphocytes (%) (Auto) 24 % (24-48) Monocytes (%) (Auto) 4 % (0-9) Eosinophils (%) (Auto) 1 % (0-3) Basophils (%) (Auto) 0 % (0-3) Neutrophils # (Auto) 16.4 x10^3/uL (1.8-7.7) Lymphocytes # (Auto) 5.5 x10^3/uL (1.0-4.8) Monocytes # (Auto) 0.8 x10^3/uL (0.0-1.1) Eosinophils # (Auto) 0.2 x10^3/uL (0.0-0.7) Basophils # (Auto) 0.1 x10^3/uL (0.0-0.2) Prothrombin Time 22.6 SEC (11.7-14.0) Prothromb Time International Ratio 2.1 (0.8-1.1) Activated Partial Thromboplast Time 44 SEC (24-38) Sodium Level 145 mmol/L (136-145) Potassium Level 7.0 mmol/L (3.5-5.1) Chloride Level 101 mmol/L (98-107) Carbon Dioxide Level 11 mmol/L (21-32) Anion Gap 33 (6-14) Blood Urea Nitrogen 58 mg/dL (8-26) Creatinine 3.8 mg/dL (0.7-1.3) Estimated GFR (Cockcroft-Gault) 18.0 BUN/Creatinine Ratio 15 (6-20) Glucose Level 1001 mg/dL (70-99) Lactic Acid Level 14.7 mmol/L (0.4-2.0) Calcium Level 18.0 mg/dL (8.5-10.1) Magnesium Level 4.9 mg/dL (1.8-2.4) Total Bilirubin 0.5 mg/dL (0.2-1.0) Aspartate Amino Transf (AST/SGOT) 129 U/L (15-37) Alanine Aminotransferase (ALT/SGPT) 91 U/L (16-63) Alkaline Phosphatase 79 U/L (46-116) Troponin I High Sensitivity 58 ng/L (4-75) Total Protein 5.8 g/dL (6.4-8.2) Albumin 3.0 g/dL (3.4-5.0) Albumin/Globulin Ratio 1.1 (1.0-1.7) Salicylates Level 3.7 mg/dL (2.8-20.0) Salicylate Last Dose Date Unk Salicylate Last Dose Time Unk Acetaminophen Level < 2 mcg/ml (10-30) Acetaminophen Last Dose Date Unk Acetaminophen Last Dose Time Unk Ethyl Alcohol Level < 10 mg/dL (0-10) Acetone Level Mod pos (NEG) O2 Saturation 97 % (92-99) Arterial Blood pO2 at Patient Temp 176 mmHg (85-108) FiO2 100 Images: Images PROCEDURE: CHEST AP ONLY INDICATION: Reason: cardiac arrest / Spl. Instructions: / History: COMPARISON: January 2020 FINDINGS: Single view of chest obtained. Right-sided vascular catheter is seen projecting over the SVC. Endotracheal tube projecting over the mid thoracic trachea region. Enlarged cardiomediastinal silhouette. Multiple bilateral rib fractures with callus formation again seen. There is some interstitial and groundglass opacities bilaterally. IMPRESSION: * Interstitial and groundglass opacities bilaterally which could be from edema or bilateral infiltrate. * Enlarged cardiomediastinal silhouette. A portion of this is likely exaggerated by portable technique but enlarged heart or pericardial effusion are not excluded. Assessment/Plan Assessment/Plan Status postcardiac arrest Respiratory failure requiring intubation DKA Lactic acidosis LANDRY due to vasomotor nephropathy Acute electrolyte derangementhyperkalemia, hypercalcemia Severe hyperkalemia Admit to ICU for further management Nephrology consult for hemodialysis Pulmonary consult for vent management IR consult for temporary tunneled catheter placement ABG on admission pending urine and blood ketones Pending plasma osmolarity Continue serial inspections and examination for sources that caused ketoacidotic state Continue IV insulin starting at 0.1 units per kg When glucose is less than 200, AG is closed, patient able to eat, and HCO3 greater than 15, then transition with subcu insulin 0.1 units/kg every 2 hours for at least 2 hours Continue IV fluids of 1 to 1.5 L/h until a total of 5 L is replenished Switch to one half NS at half the rate if NA is normal or elevated As needed D50 W or add D5 to IV fluids if Accu-Cheks are less than 200 Maintain potassium between 3.5-5, if potassium falls below 3.3, stop insulin and add 40 mEq/h of potassium Maintained p.o. 3 greater than 1.0 If arterial pH is below 6.9, give 100 mEq of sodium bicarb +20 mEq of potassium Every 2-4 hours BMP and a be checked until stable Every hour Accu-Cheks while on insulin A total of 55 minutes of critical care time was spent in reviewing chart, labs, and images. Discussed with RN and SW. Justifications for Admission Other Justification PATRICA KELLER MD Mar 06, 2022 23:41
--- NOTE | 2022-03-06 23:45 | RAD ---
INDICATION: Reason: cardiac arrest / Spl. Instructions: / History: COMPARISON: January 2020 FINDINGS: Single view of chest obtained. Right-sided vascular catheter is seen projecting over the SVC. Endotracheal tube projecting over the mid thoracic trachea region. Enlarged cardiomediastinal silhouette. Multiple bilateral rib fractures with callus formation again seen. There is some interstitial and groundglass opacities bilaterally. IMPRESSION: * Interstitial and groundglass opacities bilaterally which could be from edema or bilateral infiltra te. * Enlarged cardiomediastinal silhouette. A portion of this is likely exaggerated by portable techniq ue but enlarged heart or pericardial effusion are not excluded. Electronically signed by: Hernan Lazcano MD (03/06/2022 11:43 PM) [id number]
[2022-03-07] VITALS (54 sets, daily range): BP systolic 71–156; BP diastolic 39–88
[2022-03-07] MEDS ORDERED: DEXTROSE 50% 25 GM / 50ML DISP.SYRIN. IV PRN
[2022-03-07] MEDS ORDERED: DOCUSATE SODIUM 100 MG CAPSULE. PO PRN
[2022-03-07] MEDS ORDERED: LORazepam 0.5 MG TABLET PO PRN
[2022-03-07] MEDS ORDERED: ONDANSETRON PF 4 MG/2 ML VIAL. IVP PRN
[2022-03-07] MEDS ORDERED: POTASSIUM CHLORIDE 10MEQ 100 ML IV PRN ×3
[2022-03-07] MEDS ORDERED: diphenhydrAMINE 50 MG/ML VIAL IVP PRN
[2022-03-07] MEDS ORDERED: PROCHLORPERAZINE 10 MG/2 ML VIAL. IV PRN
[2022-03-07] MEDS ORDERED: diphenhydrAMINE HCL 25 MG CAPSULE PO PRN ×2
[2022-03-07] MEDS ORDERED: SENNOSIDES 8.6 MG TABLET PO PRN
[2022-03-07] MEDS ORDERED: ACETAMINOPHEN 325 MG TABLET. PO PRN
[2022-03-07] MEDS ORDERED: ZOLPIDEM 5 MG TABLET. PO PRN
[2022-03-07] MEDS ORDERED: SODIUM BICARBONATE VIAL 50 MEQ in IV 1/2 NORMAL SALINE 1,000 ML IV PRN
[2022-03-07] MEDS ORDERED: PIPERACILLIN/TAZOBACTAM 3.375 GM in IV NORMAL SALINE 50ML 50 ML IV SCH
[2022-03-07 00:14] LABS: % BANDS 6 % (0-9); % LYMPHS 21 % (24-48); % METAS 1 % (0-0); % MONOS 5 % (0-10); % SEGS 67 % (35-66); PLT ESTIMATE ADEQUATE (ADEQUATE); TOXIC GRANULATION SLIGHT; TOXIC VACUOLATION SLIGHT
[2022-03-07] MEDS ORDERED: LIDOCAINE WITH 8.4% SOD BICARB 3 ML DISP.SYRIN. ONE (00:42)
[2022-03-07] MEDS ORDERED: EPINEPHrine VIAL 5 MG in IV NORMAL SALINE 250ML 250 ML IV ONE (00:45)
[2022-03-07] MEDS ORDERED: SODIUM BICARB ADULT 8.4% 50 MEQ/50 ML DISP.SYRIN. ONE (01:00)
[2022-03-07] MEDS ORDERED: CALCIUM CHLORIDE 1,000 MG/10 ML DISP.SYRIN ONE (01:00)
[2022-03-07] MEDS ORDERED: EPINEPHrine SYRINGE 1 MG/10 ML SYRINGE. ONE (01:00)
[2022-03-07] MEDS ORDERED: ATROPINE 1 MG/10 ML DISP.SYRINGE. ONE (01:00)
[2022-03-07] MEDS ORDERED: AMIODARONE 150 MG/3 ML VIAL ONE (01:00)
--- NOTE | 2022-03-07 01:28 | PDOC ---
BRIEF OPERATIVE NOTE Date: Mar 07, 2022 Pre-Op Diagnosis acidosis Post-Op Diagnosis same Procedure Performed right IJ HD temp cath placement Surgeon Ezio Jaimes EBL 0 Specimens Obtained none Findings None LON JAIMES MD Mar 07, 2022 01:28
--- NOTE | 2022-03-07 01:42 | RAD ---
AP chest x-ray HISTORY: Line placement, orogastric tube placement. COMPARISON: Chest x-ray March 06, 2022 FINDINGS: Endotracheal tube tip 5 cm above the donte. Nasogastric tube tip left upper quadrant abdom en region of the stomach. Right jugular central venous catheter tip radiographic region of the lower SVC. Placement of a right jugular dialysis catheter tip right atrium. Heart size is stable. No pneumo thorax. No pleural effusions. Old healed rib fracture deformities. Pulmonary interstitial infiltrates most likely edema stable. Bones unremarkable. IMPRESSION: Lines and tubes as described above. No pneumothorax. Pulmonary interstitial infiltrates m ost likely pulmonary edema is stable. Electronically signed by: Cesar Montano MD (03/07/2022 1:39 AM) [facility]
[2022-03-07] MEDS ORDERED: LIDOCAINE WITH 8.4% SOD BICARB 3 ML DISP.SYRIN. INJ ONE (01:45)
[2022-03-07] MEDS: EPINEPHrine VIAL 10 MG in IV NORMAL SALINE 250ML IV PRN ×3 (01:58→11:21)
[2022-03-07] MEDS ORDERED: ALBUMIN HUMAN 25% 200 ML IV PRN (02:45)
[2022-03-07] MEDS ORDERED: 0.9 % SODIUM CHLORIDE 10 ML DISP.SYRIN. IV PRN ×2 (02:45)
[2022-03-07] MEDS ORDERED: IV NORMAL SALINE 1000ML BAG 1,000 ML IV PRN ×2 (02:45)
[2022-03-07] MEDS ORDERED: DIALYSIS PATIENT. MC PRN ×2 (02:45)
[2022-03-07 04:03] LABS: BASO % 0 % (0-3); EOS # 0.1 x10^3/uL (0.0-0.7); EOS % 1 % (0-3); HEMATOCRIT 48.2 % (39.0-53.0); LYMPH # 4.5 x10^3/uL (1.0-4.8); LYMPH % 25 % (24-48); MEAN CORPUSCULAR HEMOGLOBIN 29 pg (25-35); MEAN CORPUSCULAR HGB CONC 29 g/dL (31-37); MEAN CORPUSCULAR VOLUME 98 fL (79-100); MONO # 0.3 x10^3/uL (0.0-1.1); MONO % 2 % (0-9); NEUT # 12.9 x10^3/uL (1.8-7.7); NEUT % 72 % (31-73); PLATELET COUNT 400 x10^3/uL (140-400); RED BLOOD COUNT 4.92 x10^6/uL (4.30-5.70); RED CELL DISTRIBUTION WIDTH 15.4 % (11.5-14.5); WHITE BLOOD COUNT 17.8 x10^3/uL (4.0-11.0)
[2022-03-07 04:28] LABS: CREATININE 3.4 mg/dL (0.7-1.3); GFR 20.5; MAGNESIUM 4.2 mg/dL (1.8-2.4); POTASSIUM 5.2 mmol/L (3.5-5.1)
[2022-03-07] MEDS: INSULIN REGULAR VIAL 100 UNIT in IV NORMAL SALINE 100ML 100 ML IV PRN ×4 (04:31→14:19)
--- NOTE | 2022-03-07 04:45 | NUR ---
Patient unstable, requiring rapid titration of epinephrine and norepinephrine d/t sustained MAP <65 beginning at . Starting rate at 0.1 mcg/kg/min and patient stabilized at with MAP with gtts currently infusing at [1 mcg/kg/min and 0.7 mcg/kg/min; the max rate during this time was [1 mcg/kg/min and 0.7]mcg/kg/min of medication administered during charting block which ended at 0435. (Max block time 4 hours.) Pt in [ST] rhythm, HR [120], Spo2 [88].
[2022-03-07 04:53] LABS: PHOSPHORUS 13.7 mg/dL (2.6-4.7)
[2022-03-07] MEDS ORDERED: VASOPRESSIN - VASOSTRICT 20 UNIT in IV NORMAL SALINE 100ML 100 ML IV ONE (06:00)
[2022-03-07] MEDS ORDERED: VASOPRESSIN - VASOSTRICT 20 UNIT in IV NORMAL SALINE 100ML 100 ML IV PRN (06:00)
--- NOTE | 2022-03-07 07:00 | NUR ---
Patient admitted to ICU unresponsive, intubated, and unstable from the ER at 0050. Was not able to complete all of admission at this time.
[2022-03-07] MEDS ORDERED: PANTOPRAZOLE IV PUSH 40 MG VIAL. IVP SCH (07:30)
[2022-03-07] MEDS: PIPERACILLIN/TAZOBACTAM 2.25 GM in IV NORMAL SALINE 50ML 50 ML IV SCH ×2 (08:00→12:55)
[2022-03-07] MEDS: NOREPINEPHRINE VIAL 32 MG in IV D5W 250ML IV PRN ×2 (08:01→11:21)
[2022-03-07 08:14] LABS: BASE EXCESS ABG -14 mmol/L (-3-3); HCO3 ABG 16 mmol/L (21-28); PO2 ABG 141 mmHg (85-108); SAT O2 ABG 98 % (92-99)
[2022-03-07 08:18] LABS: PCO2 ABG 48 mmHg (35-46)
[2022-03-07 08:19] LABS: FIO2 ABG 100
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
[2022-03-07] MEDS ORDERED: HEPARIN for SUB-Q USE 5,000 UNIT/ML VIAL. SQ SCH (09:00)
[2022-03-07 09:04] LABS: BASE EXCESS ABG -13 mmol/L (-3-3); HCO3 ABG 21 mmol/L (21-28); PO2 ABG 189 mmHg (85-108); SAT O2 ABG 98 % (92-99)
[2022-03-07 09:07] LABS: PCO2 ABG 90 mmHg (35-46)
[2022-03-07 09:08] LABS: FIO2 ABG 100
--- NOTE | 2022-03-07 09:14 | NUR ---
APNEA TEST results: POSITIVE FOR APNEA. Patient was observed to not make any respiratory efforts.
--- NOTE | 2022-03-07 09:15 | NUR ---
CLINICAL EXAM DONE WITH DR NOVA, APNEA TEST COMPLETED PER ORDER. BROTHER OF PT CALLED AND COMING, [facility] NOTIFIED OF FINDINGS, [facility] COMING ON SITE TO SPEAK WITH BROTHER.
[2022-03-07 09:22] LABS: AMPHETAMINE/METHAMPHETAMINE NEG (NEG); BARBITURATES NEG (NEG); BENZODIAZEPINES NEG (NEG); CANNABINOIDS POS (NEG); COCAINE NEG (NEG); METHADONE NEG (NEG); OPIATES NEG (NEG); PHENCYCLIDINE NEG (NEG)
[2022-03-07 09:27] LABS: WBC,URINE OCC /HPF (0-4)
[2022-03-07 09:28] LABS: AMORPHOUS SEDIMENT,UR PRESENT /HPF; BACTERIA,URINE FEW /HPF (0-FEW)
--- NOTE | 2022-03-07 10:29 | PDOC ---
[employer] PROGRESS NOTE Date of Service DOS: DATE: 03/07/22 TIME: 10:28 Chief Complaint Chief Complaint Assessment/Plan Status postcardiac arrest Respiratory failure requiring intubation DKA Lactic acidosis LANDRY due to vasomotor nephropathy Acute electrolyte derangementhyperkalemia, hypercalcemia Severe hyperkalemia Admit to ICU for further management Neurology consulted for brain exam Nephrology consult for hemodialysis Pulmonary consult for vent management IR consult for temporary tunneled catheter placement ABG on admission pending urine and blood ketones Pending plasma osmolarity Continue serial inspections and examination for sources that caused ketoacidotic state Continue IV insulin starting at 0.1 units per kg When glucose is less than 200, AG is closed, patient able to eat, and HCO3 great er than 15, then transition with subcu insulin 0.1 units/kg every 2 hours for at least 2 hours Continue IV fluids of 1 to 1.5 L/h until a total of 5 L is replenished Switch to one half NS at half the rate if NA is normal or elevated As needed D50 W or add D5 to IV fluids if Accu-Cheks are less than 200 Maintain potassium between 3.5-5, if potassium falls below 3.3, stop insulin and add 40 mEq/h of potassium Maintained p.o. 3 greater than 1.0 If arterial pH is below 6.9, give 100 mEq of sodium bicarb +20 mEq of potassium Every 2-4 hours BMP and a be checked until stable Every hour Accu-Cheks while on insulin History of Present Illness History of Present Illness 36-year-old male with past medical history of diabetes mellitus type 1. He is brought to this facility after cardiac arrest that was witnessed in the field prior to arrival. There were witnesses said that the patient did become unresponsive. Family was present and they gave him oral sugar fluids because they thought he was hypoglycemic. Pulse was checked at the time and he was found to be pulseless. CPR was initiated. EMS arrived within 5 minutes. Initial rhythm was asystole. ACLS was initiated. 25 minutes of ACLS protocol was run before arrival to the hospital. Patient shocked twice for V. fib. Sugar on arrival was 500. After continuing ACLS ROSC he was achieved. Patient was intubated without sedation. Vasopressor with Levophed and epinephrine was continued. Empiric antibiotics started. EKG was normal without any acute ST elevations. Hypothermia protocol initiated. This is hospitalist assumed care at 2330. Nephrology was consulted for hemodialysis emergently for severe acidosis and severe hyperkalemia. IR was consulted for HD temporary catheter placement. Admitted to ICU for further management. 03/07/2022 No acute events overnight. HD catheter placed by IR and dialysis initiated. Current vent settings of 22/500/100/5. Neuro examination by nurse and neurology suggesting brain . Waiting for family to consider withdrawing care. Patient's chart, labs, images were reviewed and discussed with RN Vitals/I&O Vitals/I&O: Vital Signs Date Time Temp Pulse Resp B/P (MAP) Pulse Ox O2 Delivery O2 Flow Rate FiO2 03/07/22 09:17 100 Ventilator 03/07/22 08:48 8.0 03/07/22 07:00 97.1 142/69 97.1 03/07/22 03:30 80 22 I & O 03/06/22 03/06/22 03/07/22 15:00 23:00 07:00 Intake Total 250 ml Output Total 2500 ml Balance -2250 ml Physical Exam Physical Exam: Patient is intubated and not sedated. No spontaneous movement while on vent. Lungs: Clear Labs Labs: Laboratory Tests Test 03/06/22 22:40 03/06/22 22:55 03/07/22 03:00 03/07/22 03:33 White Blood Count 22.9 x10^3/uL (4.0-11.0) 17.8 x10^3/uL (4.0-11.0) Red Blood Count 4.33 x10^6/uL (4.30-5.70) 4.92 x10^6/uL (4.30-5.70) Hemoglobin 12.2 g/dL (13.0-17.5) 14.0 g/dL (13.0-17.5) Hematocrit 46.2 % (39.0-53.0) 48.2 % (39.0-53.0) Mean Corpuscular Volume 107 fL (79-100) 98 fL (79-100) Mean Corpuscular Hemoglobin 28 pg (25-35) 29 pg (25-35) Mean Corpuscular Hemoglobin Concent 27 g/dL (31-37) 29 g/dL (31-37) Red Cell Distribution Width 15.1 % (11.5-14.5) 15.4 % (11.5-14.5) Platelet Count 260 x10^3/uL (140-400) 400 x10^3/uL (140-400) Neutrophils (%) (Auto) 71 % (31-73) 72 % (31-73) Lymphocytes (%) (Auto) 24 % (24-48) 25 % (24-48) Monocytes (%) (Auto) 4 % (0-9) 2 % (0-9) Eosinophils (%) (Auto) 1 % (0-3) 1 % (0-3) Basophils (%) (Auto) 0 % (0-3) 0 % (0-3) Neutrophils # (Auto) 16.4 x10^3/uL (1.8-7.7) 12.9 x10^3/uL (1.8-7.7) Lymphocytes # (Auto) 5.5 x10^3/uL (1.0-4.8) 4.5 x10^3/uL (1.0-4.8) Monocytes # (Auto) 0.8 x10^3/uL (0.0-1.1) 0.3 x10^3/uL (0.0-1.1) Eosinophils # (Auto) 0.2 x10^3/uL (0.0-0.7) 0.1 x10^3/uL (0.0-0.7) Basophils # (Auto) 0.1 x10^3/uL (0.0-0.2) 0.0 x10^3/uL (0.0-0.2) Segmented Neutrophils % 67 % (35-66) Band Neutrophils % 6 % (0-9) Lymphocytes % 21 % (24-48) Monocytes % 5 % (0-10) Metamyelocytes % 1 % (0-0) Toxic Granulation Slight Toxic Vacuolation Slight Platelet Estimate Adequate (ADEQUATE) Macrocytosis Slight Prothrombin Time 22.6 SEC (11.7-14.0) Prothromb Time International Ratio 2.1 (0.8-1.1) Activated Partial Thromboplast Time 44 SEC (24-38) Sodium Level 145 mmol/L (136-145) 142 mmol/L (136-145) Potassium Level 7.0 mmol/L (3.5-5.1) 5.2 mmol/L (3.5-5.1) Chloride Level 101 mmol/L (98-107) 99 mmol/L (98-107) Carbon Dioxide Level 11 mmol/L (21-32) 11 mmol/L (21-32) Anion Gap 33 (6-14) 32 (6-14) Blood Urea Nitrogen 58 mg/dL (8-26) 56 mg/dL (8-26) Creatinine 3.8 mg/dL (0.7-1.3) 3.4 mg/dL (0.7-1.3) Estimated GFR (Cockcroft-Gault) 18.0 20.5 BUN/Creatinine Ratio 15 (6-20) Glucose Level 1001 mg/dL (70-99) 707 mg/dL (70-99) 1275 mg/dL (70-99) Lactic Acid Level 14.7 mmol/L (0.4-2.0) 7.5 mmol/L (0.4-2.0) Calcium Level 18.0 mg/dL (8.5-10.1) 12.0 mg/dL (8.5-10.1) Magnesium Level 4.9 mg/dL (1.8-2.4) 4.2 mg/dL (1.8-2.4) Total Bilirubin 0.5 mg/dL (0.2-1.0) Aspartate Amino Transf (AST/SGOT) 129 U/L (15-37) Alanine Aminotransferase (ALT/SGPT) 91 U/L (16-63) Alkaline Phosphatase 79 U/L (46-116) Troponin I High Sensitivity 58 ng/L (4-75) Total Protein 5.8 g/dL (6.4-8.2) Albumin 3.0 g/dL (3.4-5.0) Albumin/Globulin Ratio 1.1 (1.0-1.7) Procalcitonin 7.11 ng/mL (0.00-0.10) Salicylates Level 3.7 mg/dL (2.8-20.0) Salicylate Last Dose Date Unk Salicylate Last Dose Time Unk Acetaminophen Level < 2 mcg/ml (10-30) Acetaminophen Last Dose Date Unk Acetaminophen Last Dose Time Unk Ethyl Alcohol Level < 10 mg/dL (0-10) Acetone Level Mod pos (NEG) O2 Saturation 97 % (92-99) Arterial Blood pO2 at Patient Temp 176 mmHg (85-108) FiO2 100 Phosphorus Level 13.7 mg/dL (2.6-4.7) Hepatitis B Surface Antigen Nonreactive (Nonreactive) Hepatitis B Surface Antibody Nonreactive Test 03/07/22 06:35 03/07/22 08:10 03/07/22 08:45 03/07/22 08:58 Glucose Level 807 mg/dL (70-99) 767 mg/dL (70-99) O2 Saturation 98 % (92-99) 98 % (92-99) Arterial Blood pH 7.13 (7.35-7.45) 6.98 (7.35-7.45) Arterial Blood pCO2 at Patient Temp 48 mmHg (35-46) 90 mmHg (35-46) Arterial Blood pO2 at Patient Temp 141 mmHg (85-108) 189 mmHg (85-108) Arterial Blood HCO3 16 mmol/L (21-28) 21 mmol/L (21-28) Arterial Blood Base Excess -14 mmol/L (-3-3) -13 mmol/L (-3-3) FiO2 100 100 Urine Collection Type U cath Urine Color (Auto) Light orange Urine Turbidity Hazy Urine pH (Auto) 5.5 (<5.0-8.0) Urine Specific [place] 1.018 (1.000-1.030) Urine Protein (Auto) 100 mg/dL (Negative) Urine Glucose (Auto)(UA) >=1000 mg/dL (Negative) Urine Ketones (Auto) 20 mg/dL (Negative) Urine Blood (Auto) Large (Negative) Urine Nitrite Negative (Negative) Urine Bilirubin (Auto) Negative (Negative) Urine Urobilinogen (Auto) Normal mg/dL (Normal) Urine Leukocyte Esterase (Auto) Negative (Negative) Urine RBC 3-5 /HPF (0-2) Urine WBC Occ /HPF (0-4) Urine Amorphous Sediment Present /HPF Urine Bacteria Few /HPF (0-FEW) Urine Opiates Screen Neg (NEG) Urine Methadone Screen Neg (NEG) Urine Barbiturates Neg (NEG) Urine Phencyclidine Screen Neg (NEG) Urine Amphetamine/Methamphetamine Neg (NEG) Urine Benzodiazepines Screen Neg (NEG) Urine Cocaine Screen Neg (NEG) Urine Cannabinoids Screen Pos (NEG) Urine Ethyl Alcohol Neg (NEG) Assessment and Plan Assessmemt and Plan Problems Medical Problems: (1) Acute hyperkalemia Status: Acute (2) Acute hypoxemic respiratory failure Status: Acute (3) Diabetic ketoacidosis Status: Acute (4) Shock Status: Acute Comment Review of Relevant I have reviewed the following items jose roberto (where applicable) has been applied. Medications: Current Medications Medications (Trade) Dose Ordered Sig/Fausto Route PRN Reason Start Time Stop Time Status Last Admin Dose Admin Vancomycin HCl 1.5 gm/Sodium Chloride 500 ml @ 250 mls/hr 1X ONCE IV 03/06/22 23:00 03/07/22 00:59 DC 03/07/22 02:00 Piperacillin Sod/ Tazobactam Sod 4.5 gm/Dextrose 100 ml @ 200 mls/hr 1X ONCE IV 03/06/22 23:00 03/06/22 23:29 DC 03/07/22 02:01 Sodium Chloride 1,000 ml @ 1,000 mls/hr 1X ONCE IV 03/06/22 22:45 03/06/22 23:44 DC 03/07/22 01:59 Epinephrine HCl 5 mg/Sodium Chloride 255 ml @ 37.332 mls/ hr ONCE ONCE IV 03/06/22 23:00 03/07/22 05:56 DC 03/06/22 23:44 Amiodarone HCl 450 mg/Dextrose 259 ml @ 33 mls/hr 1X ONCE IV 03/06/22 23:00 03/07/22 06:50 DC 03/06/22 23:36 Sodium Bicarbonate 150 meq/Dextrose 1,150 ml @ 75 mls/hr [id number] ONCE IV 03/06/22 23:15 03/07/22 14:34 03/06/22 23:56 Norepinephrine Bitartrate 8 mg/ Dextrose 258 ml @ 23.607 mls/ hr 1X ONCE IV 03/06/22 23:45 03/07/22 08:36 DC 03/06/22 23:45 Pantoprazole Sodium (PROTONIX VIAL for IV PUSH) 40 mg DAILYAC IVP 03/07/22 07:30 03/07/22 09:30 Insulin Human Regular 100 unit/ Sodium Chloride 101 ml @ 0 mls/hr CONT PRN PRN IV PER PROTOCOL 03/07/22 00:00 03/07/22 07:28 Piperacillin Sod/ Tazobactam Sod 2.25 gm/Sodium Chloride 50 ml @ 100 mls/hr Q6HRS IV 03/07/22 06:00 03/07/22 08:00 Norepinephrine Bitartrate 32 mg/ Dextrose 250 ml @ 5.719 mls/ hr CONT PRN IV SEE I/O RECORD 03/07/22 01:15 03/07/22 08:01 Epinephrine HCl 10 mg/Sodium Chloride 250 ml @ 18.3 mls/hr CONT PRN IV SEE I/O RECORD 03/07/22 01:45 03/07/22 08:02 Lidocaine HCl (Buffered Lidocaine 1%) 9 ml 1X ONCE INJ 03/07/22 01:45 03/07/22 01:46 DC 03/07/22 01:46 Vasopressin 20 unit/Sodium Chloride 101 ml @ 9 mls/hr ONCE ONCE IV 03/07/22 06:00 03/07/22 17:13 03/07/22 06:08 Justifications for Admission Other Justification s/p cardiac arrest PATRICA KELLER MD Mar 07, 2022 10:28
[2022-03-07] MEDS: IV 1/2 NORMAL SALINE 1,000 ML IV SCH ×3 (11:00→14:17)
--- NOTE | 2022-03-07 11:07 | PDOC2 ---
CONSULT Date of Consult Date of Consult DATE: 03/07/22 TIME: 11:06 Reason for Consult Reason for Consult: Severe HyperKalemia /LANDRY / DKA Identification/Chief Complaint Chief Complaint Unable to Obtain 2/2 Clinical condition Source Source: Chart review History of Present Illness Reason for Visit: Patient is a 36-year-old CM with a history of type 1 diabetes. He presented to the ER via EMS in cardiac arrest after a witnessed cardiac arrest in the field prior to arrival. Patient was witnessed at home by his brother to become unresponsive. Family initially thought that he was hypoglycemic so they gave him sugarcontaining fluids orally. When this did not work, they checked a pulse and found him to be pulseless. They then initiated bystander CPR. EMS were called, arrived on scene within 5 to 7 minutes. Initial rhythm was asysto le. Resuscitation proceeded as per ACLS algorithm in the field. Patient received a total of about 25 minutes of prehospital ACLS with a number of rounds of epinephrine. Ventricular fibrillation was seen on the monitor at at least 2 pulse checks and so patient was defibrillated at least twice before he arrived here. He was also given a dose of lidocaine. Blood glucose was above 500 for EMS. IV fluids were given prehospital. Upon arrival to the emergency department patient he was in cardiac arrest , c ool , pale , pupils were fixed and dilated.Resuscitation in ER -[facility] suspected 2/2 hyperkalemic arrest in the setting of diabetic ketoacidosis Recd calcium chloride and bicarbonate during resuscitation. ROSC was obtained. Levophed and then epinephrine were started for pressure support. EKG narrow complex rhythm without acute ST elevation. Hypothermia protocol initiated in the emergency department. ABG obtained and serum pH and serum bicarb too low to measure. Bicarbonate drip was started. With all of the above interventions, patient stabilized. Labs revealed severe diabetic ketoacidosis with severe hyperglycemia and severe electrolyte derangements including severe hyperkalemia. I was paged by ER Physician; emergently hemodialyzed via temp HDC . Discussed initiating DKA treatment protocol Currently No reflexes. Seen by neurology . No labs available this morning post dialysis Past Medical History CENTRAL NERVOUS SYSTEM: Seizure, Other (Traumatic brain injury) Endocrine: Diabetes (Type I) Past Surgical History Past Surgical History: Other (Bilateral knee, right wrist surgery, rib fractures) Family History Family History Unable to Obtain Social History Social History Lives with brother . Unable to Obtain due to above Current Problem List Problem List Problems Medical Problems: (1) Acute hyperkalemia Status: Acute (2) Acute hypoxemic respiratory failure Status: Acute (3) Diabetic ketoacidosis Status: Acute (4) Shock Status: Acute Current Medications Current Medications Current Medications Norepinephrine Bitartrate 8 mg/ Dextrose 258 ml @ 19.737 mls/ hr 1X ONCE IV ; Start 03/06/22 at 22:45; Stop 03/06/22 at 22:46; Status Cancel Vancomycin HCl 1.5 gm/Sodium Chloride 500 ml @ 250 mls/hr 1X ONCE IV Last administered on 03/07/22at 02:00; Start 03/06/22 at 23:00; Stop 03/07/22 at 00:59; Status DC Piperacillin Sod/ Tazobactam Sod 4.5 gm/Dextrose 100 ml @ 200 mls/hr 1X ONCE IV Last administered on 03/07/22at 02:01; Start 03/06/22 at 23:00; Stop 03/06/22 at 23:29; Status DC Sodium Chloride 1,000 ml @ 1,000 mls/hr 1X ONCE IV Last administered on 03/07at 01:59; Start 03/06/22 at 22:45; Stop 03/06/22 at 23:44; Status DC Norepinephrine Bitartrate 8 mg/ Dextrose 258 ml @ 23.607 mls/ hr 1X ONCE IV ; Start 03/06/22 at 22:45; Stop 03/07/22 at 09:40; Status UNV Epinephrine HCl 5 mg/Sodium Chloride 255 ml @ 37.332 mls/ hr ONCE ONCE IV Last administered on 03/06/22at 23:44; Start 03/06/22 at 23:00; Stop 03/07/22 at 05:56; Status DC Amiodarone HCl 450 mg/Dextrose 259 ml @ 33 mls/hr 1X ONCE IV Last administered on 03/06/22at 23:36; Start 03/06/22 at 23:00; Stop 03/07/22 at 06:50; Status DC Sodium Bicarbonate 150 meq/Dextrose 1,150 ml @ 75 mls/hr [id number] ONCE IV Last administered on 03/06/22at 23:56; Start 03/06/22 at 23:15; Stop 03/07/22 at 14:34 Norepinephrine Bitartrate 8 mg/ Dextrose 258 ml @ 23.607 mls/ hr 1X ONCE IV Last administered on 03/06/22at 23:45; Start 03/06/22 at 23:45; Stop 03/07/22 at 08:36; Status DC Sennosides (Senna) 17.2 mg PRN BID PRN PO CONSTIPATION; Start 03/07/22 at 00:00 Docusate Sodium (Colace) 100 mg PRN DAILY PRN PO HARD STOOLS; Start 03/07/22 at 00:00 Ondansetron HCl (Zofran) 4 mg PRN Q6HRS PRN IVP NAUSEA/VOMITING, 1st CHOICE; Start 03/07/22 at 00:00 Dextrose (Dextrose 50%-Water Syringe) 12.5 gm PRN Q15MIN PRN IV SEE COMMENTS; Start 03/07/22 at 00:00 Acetaminophen (Tylenol) 650 mg PRN Q4HRS PRN PO TEMP OVER 100.4F OR MILD PAIN; Start 03/07/22 at 00:00 Lorazepam (Ativan) 0.5 mg PRN Q6HRS PRN PO ANXIETY / AGITATION; Start 03/07/22 at 00:00 Lorazepam (Ativan Inj) 0.25 mg PRN Q4HRS PRN IV ANXIETY / AGITATION; Start 03/07/22 at 00:00 Piperacillin Sod/ Tazobactam Sod 3.375 gm/Sodium Chloride 50 ml @ 100 mls/hr Q6HRS IV ; Start 03/07/22 at 00:00; Stop 03/07/22 at 00:16; Status DC Heparin Sodium (Porcine) (Heparin Sodium) 5,000 unit Q12HR SQ ; Start 03/07/22 at 09:00 Pantoprazole Sodium (PROTONIX VIAL for IV PUSH) 40 mg DAILYAC IVP Last administered on 03/07/22at 09:30; Start 03/07/22 at 07:30 Prochlorperazine Edisylate (Compazine) 10 mg PRN Q6HRS PRN IV NAUSEA/VOMITING, 2nd CHOICE; Start 03/07/22 at 00:00 Diphenhydramine HCl (Benadryl) 25 mg PRN Q6HRS PRN IVP ITCHING; Start 03/07/22 at 00:00 Diphenhydramine HCl (Benadryl) 25 mg PRN Q6HRS PRN PO ITCHING; Start 03/07/22 at 00:00 Diphenhydramine HCl (Benadryl) 25 mg PRN QHS PRN PO INSOMNIA, 1st CHOICE; Start 03/07/22 at 00:00 Zolpidem Tartrate (Ambien) 2.5 mg PRN QHS PRN PO INSOMNIA, 2nd CHOICE; Start 03/07/22 at 00:00 Insulin Human Regular 100 unit/ Sodium Chloride 101 ml @ 0 mls/hr CONT PRN PRN IV PER PROTOCOL Last administered on 03/07/22at 07:28; Start 03/07/22 at 00:00 Potassium Chloride/Water 100 ml @ 100 mls/hr PRN Q1HR PRN IV SEE COMMENTS; Start 03/07/22 at 00:00 Potassium Chloride/Water 100 ml @ 100 mls/hr PRN Q1HR PRN IV SEE COMMENTS; Start 03/07/22 at 00:00 Potassium Chloride/Water 100 ml @ 100 mls/hr PRN Q1HR PRN IV SEE COMMENTS; Start 03/07/22 at 00:00 Sodium Bicarbonate 50 meq/Sodium Chloride 1,050 ml @ 500 mls/hr Q2H6M PRN IV SE E COMMENTS; Start 03/07/22 at 00:00 Piperacillin Sod/ Tazobactam Sod 2.25 gm/Sodium Chloride 50 ml @ 100 mls/hr Q6HRS IV Last administered on 03/07/22at 08:00; Start 03/07/22 at 06:00 Epinephrine HCl 5 mg/Sodium Chloride 255 ml @ 37.332 mls/ hr ONCE ONCE IV ; Start 03/07/22 at 00:45; Stop 03/07/22 at 07:34; Status DC Lidocaine HCl (Buffered Lidocaine 1%) 3 ml STK-MED ONCE .ROUTE ; Start 03/07/22 at 00:42; Stop 03/07/22 at 00:42; Status DC Norepinephrine Bitartrate 32 mg/ Dextrose 250 ml @ 5.719 mls/ hr CONT PRN IV SEE I/O RECORD Last administered on 03/07/22at 08:01; Start 03/07/22 at 01:15 Epinephrine HCl 10 mg/Sodium Chloride 250 ml @ 18.3 mls/hr CONT PRN IV SEE I/O RECORD Last administered on 03/07/22at 08:02; Start 03/07/22 at 01:45 Lidocaine HCl (Buffered Lidocaine 1%) 9 ml 1X ONCE INJ Last administered on 03/07/22at 01:46; Start 03/07/22 at 01:45; Stop 03/07/22 at 01:46; Status DC Sodium Chloride 1,000 ml @ 1,000 mls/hr Q1H PRN IV hypotension; Start 03/07/22 at 02:45; Stop 03/07/22 at 08:44; Status DC Albumin Human 200 ml @ 200 mls/hr 1X PRN PRN IV Hypotension; Start 03/07/22 at 02:45; Stop 03/07/22 at 08:44; Status DC Sodium Chloride (Normal Saline Flush) 10 ml 1X PRN PRN IV AP catheter pack; Start 03/07/22 at 02:45; Stop 03/08/22 at 02:44 Sodium Chloride (Normal Saline Flush) 10 ml 1X PRN PRN IV ORGANIC CHEMIST catheter pack; Start 03/07/22 at 02:45; Stop 03/08/22 at 02:44 Sodium Chloride 1,000 ml @ 400 mls/hr Q2H30M PRN IV PATENCY; Start 03/07/22 at 02:45; Stop 03/07/22 at 14:44 Info (PHARMACY MONITORING -- do not chart) 1 each PRN DAILY PRN MC SEE COMMENTS; Start 03/07/22 at 02:45 Info (PHARMACY MONITORING -- do not chart) 1 each PRN DAILY PRN MC SEE COMMENTS; Start 03/07/22 at 02:45 Vasopressin 20 unit/Sodium Chloride 101 ml @ 9 mls/hr ONCE ONCE IV Last administered on 03/07/22at 06:08; Start 03/07/22 at 06:00; Stop 03/07/22 at 17:13 Sodium Chloride 1,000 ml @ 250 mls/hr Q4H IV ; Start 03/07/22 at 06:00 Vasopressin 20 unit/Sodium Chloride 101 ml @ 9 mls/hr CONT PRN IV SEE I/O RECORD; Start 03/07/22 at 06:00 Active Scripts Active Reported Novolog Flexpen (Insulin Aspart) 100 Unit/1 Ml Insuln.pen 1 Unit SQ TIDBFRMEAL PRN Lantus Solostar (Insulin Glargine,Hum.rec.anlog) 100 Unit/1 Ml Insuln.pen 65 Unit SQ DAILY Allergies Allergies: Coded Allergies: Sulfa (Sulfonamide Antibiotics) (Verified Allergy, Intermediate, 11/06/20) ROS Review of System Unable to Obtain Physical Exam Physical Exam General: Intubated on MV , Coma HEENT:OGT + ; Normocephalic andatraumatic. Pupils nonreactive to light. Corneal reflex absent. Gag reflex absent.(Details per neurologist ) Neck:supple Supple no meningismus Lungs No Spontaneous respirations CV S1S2 Abdomen - soft Ext No LE edema Yusuf + Neuro Cough reflex absent to tracheal suctioning.Absence of motor response to noxious stimuli in all four limbs (Exam per neurologist ) Vital Signs Vital Signs Date Time Temp Pulse Resp B/P (MAP) Pulse Ox O2 Delivery O2 Flow Rate FiO2 03/07/22 09:17 100 Ventilator 03/07/22 08:48 8.0 03/07/22 07:00 97.1 142/69 97.1 03/07/22 03:30 80 22 Assessment & Plan LANDRY - 2/2 DKA /s/p cardiac arrest . 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 Currently on 3 pressors . per neurology examination cw Brain . Awaiting contact with his brother Status postcardiac arrest Severe HyperKalemia - Emergent Dialyzed / Etiology 2/2 DKA . Metabolic acidosis- Severe 2/2 DKA Acute Respiratory failure On MV DKA- On DKA protocol. Lactic acidosis Labs Labs Laboratory Tests Test 03/06/22 22:40 03/06/22 22:55 03/07/22 03:00 03/07/22 03:33 White Blood Count 22.9 x10^3/uL (4.0-11.0) 17.8 x10^3/uL (4.0-11.0) Red Blood Count 4.33 x10^6/uL (4.30-5.70) 4.92 x10^6/uL (4.30-5.70) Hemoglobin 12.2 g/dL (13.0-17.5) 14.0 g/dL (13.0-17.5) Hematocrit 46.2 % (39.0-53.0) 48.2 % (39.0-53.0) Mean Corpuscular Volume 107 fL (79-100) 98 fL (79-100) Mean Corpuscular Hemoglobin 28 pg (25-35) 29 pg (25-35) Mean Corpuscular Hemoglobin Concent 27 g/dL (31-37) 29 g/dL (31-37) Red Cell Distribution Width 15.1 % (11.5-14.5) 15.4 % (11.5-14.5) Platelet Count 260 x10^3/uL (140-400) 400 x10^3/uL (140-400) Neutrophils (%) (Auto) 71 % (31-73) 72 % (31-73) Lymphocytes (%) (Auto) 24 % (24-48) 25 % (24-48) Monocytes (%) (Auto) 4 % (0-9) 2 % (0-9) Eosinophils (%) (Auto) 1 % (0-3) 1 % (0-3) Basophils (%) (Auto) 0 % (0-3) 0 % (0-3) Neutrophils # (Auto) 16.4 x10^3/uL (1.8-7.7) 12.9 x10^3/uL (1.8-7.7) Lymphocytes # (Auto) 5.5 x10^3/uL (1.0-4.8) 4.5 x10^3/uL (1.0-4.8) Monocytes # (Auto) 0.8 x10^3/uL (0.0-1.1) 0.3 x10^3/uL (0.0-1.1) Eosinophils # (Auto) 0.2 x10^3/uL (0.0-0.7) 0.1 x10^3/uL (0.0-0.7) Basophils # (Auto) 0.1 x10^3/uL (0.0-0.2) 0.0 x10^3/uL (0.0-0.2) Segmented Neutrophils % 67 % (35-66) Band Neutrophils % 6 % (0-9) Lymphocytes % 21 % (24-48) Monocytes % 5 % (0-10) Metamyelocytes % 1 % (0-0) Toxic Granulation Slight Toxic Vacuolation Slight Platelet Estimate Adequate (ADEQUATE) Macrocytosis Slight Prothrombin Time 22.6 SEC (11.7-14.0) Prothromb Time International Ratio 2.1 (0.8-1.1) Activated Partial Thromboplast Time 44 SEC (24-38) Sodium Level 145 mmol/L (136-145) 142 mmol/L (136-145) Potassium Level 7.0 mmol/L (3.5-5.1) 5.2 mmol/L (3.5-5.1) Chloride Level 101 mmol/L (98-107) 99 mmol/L (98-107) Carbon Dioxide Level 11 mmol/L (21-32) 11 mmol/L (21-32) Anion Gap 33 (6-14) 32 (6-14) Blood Urea Nitrogen 58 mg/dL (8-26) 56 mg/dL (8-26) Creatinine 3.8 mg/dL (0.7-1.3) 3.4 mg/dL (0.7-1.3) Estimated GFR (Cockcroft-Gault) 18.0 20.5 BUN/Creatinine Ratio 15 (6-20) Glucose Level 1001 mg/dL (70-99) 707 mg/dL (70-99) 1275 mg/dL (70-99) Lactic Acid Level 14.7 mmol/L (0.4-2.0) 7.5 mmol/L (0.4-2.0) Calcium Level 18.0 mg/dL (8.5-10.1) 12.0 mg/dL (8.5-10.1) Magnesium Level 4.9 mg/dL (1.8-2.4) 4.2 mg/dL (1.8-2.4) Total Bilirubin 0.5 mg/dL (0.2-1.0) Aspartate Amino Transf (AST/SGOT) 129 U/L (15-37) Alanine Aminotransferase (ALT/SGPT) 91 U/L (16-63) Alkaline Phosphatase 79 U/L (46-116) Troponin I High Sensitivity 58 ng/L (4-75) Total Protein 5.8 g/dL (6.4-8.2) Albumin 3.0 g/dL (3.4-5.0) Albumin/Globulin Ratio 1.1 (1.0-1.7) Procalcitonin 7.11 ng/mL (0.00-0.10) Salicylates Level 3.7 mg/dL (2.8-20.0) Salicylate Last Dose Date Unk Salicylate Last Dose Time Unk Acetaminophen Level < 2 mcg/ml (10-30) Acetaminophen Last Dose Date Unk Acetaminophen Last Dose Time Unk Ethyl Alcohol Level < 10 mg/dL (0-10) Acetone Level Mod pos (NEG) O2 Saturation 97 % (92-99) Arterial Blood pO2 at Patient Temp 176 mmHg (85-108) FiO2 100 Phosphorus Level 13.7 mg/dL (2.6-4.7) Hepatitis B Surface Antigen Nonreactive (Nonreactive) Hepatitis B Surface Antibody Nonreactive Test 03/07/22 06:35 03/07/22 08:10 03/07/22 08:45 03/07/22 08:58 Glucose Level 807 mg/dL (70-99) 767 mg/dL (70-99) O2 Saturation 98 % (92-99) 98 % (92-99) Arterial Blood pH 7.13 (7.35-7.45) 6.98 (7.35-7.45) Arterial Blood pCO2 at Patient Temp 48 mmHg (35-46) 90 mmHg (35-46) Arterial Blood pO2 at Patient Temp 141 mmHg (85-108) 189 mmHg (85-108) Arterial Blood HCO3 16 mmol/L (21-28) 21 mmol/L (21-28) Arterial Blood Base Excess -14 mmol/L (-3-3) -13 mmol/L (-3-3) FiO2 100 100 Urine Collection Type U cath Urine Color (Auto) Light orange Urine Turbidity Hazy Urine pH (Auto) 5.5 (<5.0-8.0) Urine Specific [place] 1.018 (1.000-1.030) Urine Protein (Auto) 100 mg/dL (Negative) Urine Glucose (Auto)(UA) >=1000 mg/dL (Negative) Urine Ketones (Auto) 20 mg/dL (Negative) Urine Blood (Auto) Large (Negative) Urine Nitrite Negative (Negative) Urine Bilirubin (Auto) Negative (Negative) Urine Urobilinogen (Auto) Normal mg/dL (Normal) Urine Leukocyte Esterase (Auto) Negative (Negative) Urine RBC 3-5 /HPF (0-2) Urine WBC Occ /HPF (0-4) Urine Amorphous Sediment Present /HPF Urine Bacteria Few /HPF (0-FEW) Urine Opiates Screen Neg (NEG) Urine Methadone Screen Neg (NEG) Urine Barbiturates Neg (NEG) Urine Phencyclidine Screen Neg (NEG) Urine Amphetamine/Methamphetamine Neg (NEG) Urine Benzodiazepines Screen Neg (NEG) Urine Cocaine Screen Neg (NEG) Urine Cannabinoids Screen Pos (NEG) Urine Ethyl Alcohol Neg (NEG) Laboratory Tests Test 03/06/22 22:40 03/06/22 22:55 03/07/22 03:00 03/07/22 03:33 White Blood Count 22.9 x10^3/uL (4.0-11.0) 17.8 x10^3/uL (4.0-11.0) Red Blood Count 4.33 x10^6/uL (4.30-5.70) 4.92 x10^6/uL (4.30-5.70) Hemoglobin 12.2 g/dL (13.0-17.5) 14.0 g/dL (13.0-17.5) Hematocrit 46.2 % (39.0-53.0) 48.2 % (39.0-53.0) Mean Corpuscular Volume 107 fL (79-100) 98 fL (79-100) Mean Corpuscular Hemoglobin 28 pg (25-35) 29 pg (25-35) Mean Corpuscular Hemoglobin Concent 27 g/dL (31-37) 29 g/dL (31-37) Red Cell Distribution Width 15.1 % (11.5-14.5) 15.4 % (11.5-14.5) Platelet Count 260 x10^3/uL (140-400) 400 x10^3/uL (140-400) Neutrophils (%) (Auto) 71 % (31-73) 72 % (31-73) Lymphocytes (%) (Auto) 24 % (24-48) 25 % (24-48) Monocytes (%) (Auto) 4 % (0-9) 2 % (0-9) Eosinophils (%) (Auto) 1 % (0-3) 1 % (0-3) Basophils (%) (Auto) 0 % (0-3) 0 % (0-3) Neutrophils # (Auto) 16.4 x10^3/uL (1.8-7.7) 12.9 x10^3/uL (1.8-7.7) Lymphocytes # (Auto) 5.5 x10^3/uL (1.0-4.8) 4.5 x10^3/uL (1.0-4.8) Monocytes # (Auto) 0.8 x10^3/uL (0.0-1.1) 0.3 x10^3/uL (0.0-1.1) Eosinophils # (Auto) 0.2 x10^3/uL (0.0-0.7) 0.1 x10^3/uL (0.0-0.7) Basophils # (Auto) 0.1 x10^3/uL (0.0-0.2) 0.0 x10^3/uL (0.0-0.2) Segmented Neutrophils % 67 % (35-66) Band Neutrophils % 6 % (0-9) Lymphocytes % 21 % (24-48) Monocytes % 5 % (0-10) Metamyelocytes % 1 % (0-0) Toxic Granulation Slight Toxic Vacuolation Slight Platelet Estimate Adequate (ADEQUATE) Macrocytosis Slight Prothrombin Time 22.6 SEC (11.7-14.0) Prothromb Time International Ratio 2.1 (0.8-1.1) Activated Partial Thromboplast Time 44 SEC (24-38) Sodium Level 145 mmol/L (136-145) 142 mmol/L (136-145) Potassium Level 7.0 mmol/L (3.5-5.1) 5.2 mmol/L (3.5-5.1) Chloride Level 101 mmol/L (98-107) 99 mmol/L (98-107) Carbon Dioxide Level 11 mmol/L (21-32) 11 mmol/L (21-32) Anion Gap 33 (6-14) 32 (6-14) Blood Urea Nitrogen 58 mg/dL (8-26) 56 mg/dL (8-26) Creatinine 3.8 mg/dL (0.7-1.3) 3.4 mg/dL (0.7-1.3) Estimated GFR (Cockcroft-Gault) 18.0 20.5 BUN/Creatinine Ratio 15 (6-20) Glucose Level 1001 mg/dL (70-99) 707 mg/dL (70-99) 1275 mg/dL (70-99) Lactic Acid Level 14.7 mmol/L (0.4-2.0) 7.5 mmol/L (0.4-2.0) Calcium Level 18.0 mg/dL (8.5-10.1) 12.0 mg/dL (8.5-10.1) Magnesium Level 4.9 mg/dL (1.8-2.4) 4.2 mg/dL (1.8-2.4) Total Bilirubin 0.5 mg/dL (0.2-1.0) Aspartate Amino Transf (AST/SGOT) 129 U/L (15-37) Alanine Aminotransferase (ALT/SGPT) 91 U/L (16-63) Alkaline Phosphatase 79 U/L (46-116) Troponin I High Sensitivity 58 ng/L (4-75) Total Protein 5.8 g/dL (6.4-8.2) Albumin 3.0 g/dL (3.4-5.0) Albumin/Globulin Ratio 1.1 (1.0-1.7) Procalcitonin 7.11 ng/mL (0.00-0.10) Salicylates Level 3.7 mg/dL (2.8-20.0) Salicylate Last Dose Date Unk Salicylate Last Dose Time Unk Acetaminophen Level < 2 mcg/ml (10-30) Acetaminophen Last Dose Date Unk Acetaminophen Last Dose Time Unk Ethyl Alcohol Level < 10 mg/dL (0-10) Acetone Level Mod pos (NEG) O2 Saturation 97 % (92-99) Arterial Blood pO2 at Patient Temp 176 mmHg (85-108) FiO2 100 Phosphorus Level 13.7 mg/dL (2.6-4.7) Hepatitis B Surface Antigen Nonreactive (Nonreactive) Hepatitis B Surface Antibody Nonreactive Test 03/07/22 06:35 03/07/22 08:10 03/07/22 08:45 03/07/22 08:58 Glucose Level 807 mg/dL (70-99) 767 mg/dL (70-99) O2 Saturation 98 % (92-99) 98 % (92-99) Arterial Blood pH 7.13 (7.35-7.45) 6.98 (7.35-7.45) Arterial Blood pCO2 at Patient Temp 48 mmHg (35-46) 90 mmHg (35-46) Arterial Blood pO2 at Patient Temp 141 mmHg (85-108) 189 mmHg (85-108) Arterial Blood HCO3 16 mmol/L (21-28) 21 mmol/L (21-28) Arterial Blood Base Excess -14 mmol/L (-3-3) -13 mmol/L (-3-3) FiO2 100 100 Urine Collection Type U cath Urine Color (Auto) Light orange Urine Turbidity Hazy Urine pH (Auto) 5.5 (<5.0-8.0) Urine Specific [place] 1.018 (1.000-1.030) Urine Protein (Auto) 100 mg/dL (Negative) Urine Glucose (Auto)(UA) >=1000 mg/dL (Negative) Urine Ketones (Auto) 20 mg/dL (Negative) Urine Blood (Auto) Large (Negative) Urine Nitrite Negative (Negative) Urine Bilirubin (Auto) Negative (Negative) Urine Urobilinogen (Auto) Normal mg/dL (Normal) Urine Leukocyte Esterase (Auto) Negative (Negative) Urine RBC 3-5 /HPF (0-2) Urine WBC Occ /HPF (0-4) Urine Amorphous Sediment Present /HPF Urine Bacteria Few /HPF (0-FEW) Urine Opiates Screen Neg (NEG) Urine Methadone Screen Neg (NEG) Urine Barbiturates Neg (NEG) Urine Phencyclidine Screen Neg (NEG) Urine Amphetamine/Methamphetamine Neg (NEG) Urine Benzodiazepines Screen Neg (NEG) Urine Cocaine Screen Neg (NEG) Urine Cannabinoids Screen Pos (NEG) Urine Ethyl Alcohol Neg (NEG) Review All relevant outside records, renal labs, imaging studies, telemetry/EKG's were reviewed. Images Images INDICATION: Reason: cardiac arrest / Spl. Instructions: / History: COMPARISON: January 2020 FINDINGS: Single view of chest obtained. Right-sided vascular catheter is seen projecting over the SVC. Endotracheal tube projecting over the mid thoracic trachea region. Enlarged cardiomediastinal silhouette. Multiple bilateral rib fractures with callus formation again seen. There is some interstitial and groundglass opacities bilaterally. IMPRESSION: * Interstitial and groundglass opacities bilaterally which could be from edema or bilateral infiltrate. * Enlarged cardiomediastinal silhouette. A portion of this is likely exaggerated by portable technique but enlarged heart or pericardial effusion are not excluded. Electronically signed by: Hernan Lazcano MD (03/06/2022 11:43 PM) [employer] [id number] JUAN NEWELL MD Mar 07, 2022 11:07
[2022-03-07 11:55] LABS: ALBUMIN 2.9 g/dL (3.4-5.0); CALCIUM 8.4 mg/dL (8.5-10.1); CREATININE 2.9 mg/dL (0.7-1.3); GFR 24.6; TOTAL BILIRUBIN 1.3 mg/dL (0.2-1.0); TOTAL PROTEIN 5.9 g/dL (6.4-8.2)
[2022-03-07 11:59] LABS: POTASSIUM 2.9 mmol/L (3.5-5.1)
--- NOTE | 2022-03-07 12:34 | RAD ---
Procedure: Nontunneled Dialysis Catheter 03/07/2022 Clinical Indication: Electrolyte abnormality, acidosis, performed on emergent basis Anesthesia: Local anesthesia only. Continuous cardiopulmonary monitoring was performed by independent qualified nursing personnel. Complications: None Consent: The procedure was explained in its entirety to the patient or the patients designated repre sentative by a member of the treatment team, including a discussion of the risks, benefits and common ly accepted alternatives to the procedure, as well as the expected consequences of no therapy whatsoe sy. Discussion of the risks included, but was not limited to, those that are most frequent and those that are rare but possibly severe or life-threatening, as well as the possibility of unforeseen comp lications. All questions were answered and informed consent was obtained. Sterility: All elements of maximal sterile barrier technique including the use of a cap, mask, steril e gown, sterile gloves, large sterile sheet, appropriate hand hygiene, and 2% chlorhexidine for cutan eous antisepsis (or acceptable alternative antiseptic per current guidelines) were followed for this procedure. Patient was placed in the supine position. The right neck was prepped and draped in the appropriate s terile fashion. A timeout was performed. Ultrasound examination of the right internal jugular showed a patent compressible vein amendable to line placement. Local lidocaine was instilled and under dire ct ultrasound visualization a 501 needle was used access the right internal jugular vein. Dark, nonpu lsatile blood was noted from the hub of the needle. A 018 wire was placed through the needle and visu alized in the vein with ultrasound. A skin eri was made, the wire exchanged for a 305 wire, and the tract was serially dilated. A 20 cm Bernardo catheter was placed ans sutured to the skin with 2-0 nylon. Both ports of the catheter flushed and aspirated freely. The catheter was locked with heparin and a s terile CHG dressing was placed over top. A CXR was viewed at the time of placement showing the cathet er in its expected course over the SVC. Impression: Nontunneled hemodialysis/pheresis catheter placement. Plan: Catheter is ready to use. Electronically signed by: Ventura Jaimes MD (03/07/2022 12:31 PM) [id number]
--- NOTE | 2022-03-07 12:54 | PDOC ---
PULMONARY PROGRESS NOTES DATE: 03/07/22 TIME: 12:54 Vitals Vital Signs Date Time Temp Pulse Resp B/P (MAP) Pulse Ox O2 Delivery O2 Flow Rate FiO2 03/07/22 11:48 100 Ventilator 03/07/22 08:48 8.0 03/07/22 07:00 97.1 142/69 97.1 03/07/22 03:30 80 22 Lungs: Clear Labs Laboratory Tests Test 03/06/22 22:40 03/06/22 22:55 03/07/22 03:00 03/07/22 03:33 White Blood Count 22.9 x10^3/uL (4.0-11.0) 17.8 x10^3/uL (4.0-11.0) Red Blood Count 4.33 x10^6/uL (4.30-5.70) 4.92 x10^6/uL (4.30-5.70) Hemoglobin 12.2 g/dL (13.0-17.5) 14.0 g/dL (13.0-17.5) Hematocrit 46.2 % (39.0-53.0) 48.2 % (39.0-53.0) Mean Corpuscular Volume 107 fL (79-100) 98 fL (79-100) Mean Corpuscular Hemoglobin 28 pg (25-35) 29 pg (25-35) Mean Corpuscular Hemoglobin Concent 27 g/dL (31-37) 29 g/dL (31-37) Red Cell Distribution Width 15.1 % (11.5-14.5) 15.4 % (11.5-14.5) Platelet Count 260 x10^3/uL (140-400) 400 x10^3/uL (140-400) Neutrophils (%) (Auto) 71 % (31-73) 72 % (31-73) Lymphocytes (%) (Auto) 24 % (24-48) 25 % (24-48) Monocytes (%) (Auto) 4 % (0-9) 2 % (0-9) Eosinophils (%) (Auto) 1 % (0-3) 1 % (0-3) Basophils (%) (Auto) 0 % (0-3) 0 % (0-3) Neutrophils # (Auto) 16.4 x10^3/uL (1.8-7.7) 12.9 x10^3/uL (1.8-7.7) Lymphocytes # (Auto) 5.5 x10^3/uL (1.0-4.8) 4.5 x10^3/uL (1.0-4.8) Monocytes # (Auto) 0.8 x10^3/uL (0.0-1.1) 0.3 x10^3/uL (0.0-1.1) Eosinophils # (Auto) 0.2 x10^3/uL (0.0-0.7) 0.1 x10^3/uL (0.0-0.7) Basophils # (Auto) 0.1 x10^3/uL (0.0-0.2) 0.0 x10^3/uL (0.0-0.2) Segmented Neutrophils % 67 % (35-66) Band Neutrophils % 6 % (0-9) Lymphocytes % 21 % (24-48) Monocytes % 5 % (0-10) Metamyelocytes % 1 % (0-0) Toxic Granulation Slight Toxic Vacuolation Slight Platelet Estimate Adequate (ADEQUATE) Macrocytosis Slight Prothrombin Time 22.6 SEC (11.7-14.0) Prothromb Time International Ratio 2.1 (0.8-1.1) Activated Partial Thromboplast Time 44 SEC (24-38) Sodium Level 145 mmol/L (136-145) 142 mmol/L (136-145) Potassium Level 7.0 mmol/L (3.5-5.1) 5.2 mmol/L (3.5-5.1) Chloride Level 101 mmol/L (98-107) 99 mmol/L (98-107) Carbon Dioxide Level 11 mmol/L (21-32) 11 mmol/L (21-32) Anion Gap 33 (6-14) 32 (6-14) Blood Urea Nitrogen 58 mg/dL (8-26) 56 mg/dL (8-26) Creatinine 3.8 mg/dL (0.7-1.3) 3.4 mg/dL (0.7-1.3) Estimated GFR (Cockcroft-Gault) 18.0 20.5 BUN/Creatinine Ratio 15 (6-20) Glucose Level 1001 mg/dL (70-99) 707 mg/dL (70-99) 1275 mg/dL (70-99) Lactic Acid Level 14.7 mmol/L (0.4-2.0) 7.5 mmol/L (0.4-2.0) Calcium Level 18.0 mg/dL (8.5-10.1) 12.0 mg/dL (8.5-10.1) Magnesium Level 4.9 mg/dL (1.8-2.4) 4.2 mg/dL (1.8-2.4) Total Bilirubin 0.5 mg/dL (0.2-1.0) Aspartate Amino Transf (AST/SGOT) 129 U/L (15-37) Alanine Aminotransferase (ALT/SGPT) 91 U/L (16-63) Alkaline Phosphatase 79 U/L (46-116) Troponin I High Sensitivity 58 ng/L (4-75) Total Protein 5.8 g/dL (6.4-8.2) Albumin 3.0 g/dL (3.4-5.0) Albumin/Globulin Ratio 1.1 (1.0-1.7) Procalcitonin 7.11 ng/mL (0.00-0.10) Salicylates Level 3.7 mg/dL (2.8-20.0) Salicylate Last Dose Date Unk Salicylate Last Dose Time Unk Acetaminophen Level < 2 mcg/ml (10-30) Acetaminophen Last Dose Date Unk Acetaminophen Last Dose Time Unk Ethyl Alcohol Level < 10 mg/dL (0-10) Acetone Level Mod pos (NEG) O2 Saturation 97 % (92-99) Arterial Blood pO2 at Patient Temp 176 mmHg (85-108) FiO2 100 Phosphorus Level 13.7 mg/dL (2.6-4.7) Hepatitis B Surface Antigen Nonreactive (Nonreactive) Hepatitis B Surface Antibody Nonreactive Test 03/07/22 06:35 03/07/22 08:10 03/07/22 08:45 03/07/22 08:58 Glucose Level 807 mg/dL (70-99) 767 mg/dL (70-99) O2 Saturation 98 % (92-99) 98 % (92-99) Arterial Blood pH 7.13 (7.35-7.45) 6.98 (7.35-7.45) Arterial Blood pCO2 at Patient Temp 48 mmHg (35-46) 90 mmHg (35-46) Arterial Blood pO2 at Patient Temp 141 mmHg (85-108) 189 mmHg (85-108) Arterial Blood HCO3 16 mmol/L (21-28) 21 mmol/L (21-28) Arterial Blood Base Excess -14 mmol/L (-3-3) -13 mmol/L (-3-3) FiO2 100 100 Urine Collection Type U cath Urine Color (Auto) Light orange Urine Turbidity Hazy Urine pH (Auto) 5.5 (<5.0-8.0) Urine Specific [place] 1.018 (1.000-1.030) Urine Protein (Auto) 100 mg/dL (Negative) Urine Glucose (Auto)(UA) >=1000 mg/dL (Negative) Urine Ketones (Auto) 20 mg/dL (Negative) Urine Blood (Auto) Large (Negative) Urine Nitrite Negative (Negative) Urine Bilirubin (Auto) Negative (Negative) Urine Urobilinogen (Auto) Normal mg/dL (Normal) Urine Leukocyte Esterase (Auto) Negative (Negative) Urine RBC 3-5 /HPF (0-2) Urine WBC Occ /HPF (0-4) Urine Amorphous Sediment Present /HPF Urine Bacteria Few /HPF (0-FEW) Urine Opiates Screen Neg (NEG) Urine Methadone Screen Neg (NEG) Urine Barbiturates Neg (NEG) Urine Phencyclidine Screen Neg (NEG) Urine Amphetamine/Methamphetamine Neg (NEG) Urine Benzodiazepines Screen Neg (NEG) Urine Cocaine Screen Neg (NEG) Urine Cannabinoids Screen Pos (NEG) Urine Ethyl Alcohol Neg (NEG) Test 03/07/22 11:25 Sodium Level 145 mmol/L (136-145) Potassium Level 2.9 mmol/L (3.5-5.1) Chloride Level 100 mmol/L (98-107) Carbon Dioxide Level 22 mmol/L (21-32) Anion Gap 23 (6-14) Blood Urea Nitrogen 40 mg/dL (8-26) Creatinine 2.9 mg/dL (0.7-1.3) Estimated GFR (Cockcroft-Gault) 24.6 BUN/Creatinine Ratio 14 (6-20) Glucose Level 694 mg/dL (70-99) Calcium Level 8.4 mg/dL (8.5-10.1) Total Bilirubin 1.3 mg/dL (0.2-1.0) Aspartate Amino Transf (AST/SGOT) 549 U/L (15-37) Alanine Aminotransferase (ALT/SGPT) 247 U/L (16-63) Alkaline Phosphatase 79 U/L (46-116) Total Protein 5.9 g/dL (6.4-8.2) Albumin 2.9 g/dL (3.4-5.0) Albumin/Globulin Ratio 1.0 (1.0-1.7) Laboratory Tests Test 03/06/22 22:40 03/06/22 22:55 03/07/22 03:00 03/07/22 03:33 White Blood Count 22.9 x10^3/uL (4.0-11.0) 17.8 x10^3/uL (4.0-11.0) Red Blood Count 4.33 x10^6/uL (4.30-5.70) 4.92 x10^6/uL (4.30-5.70) Hemoglobin 12.2 g/dL (13.0-17.5) 14.0 g/dL (13.0-17.5) Hematocrit 46.2 % (39.0-53.0) 48.2 % (39.0-53.0) Mean Corpuscular Volume 107 fL (79-100) 98 fL (79-100) Mean Corpuscular Hemoglobin 28 pg (25-35) 29 pg (25-35) Mean Corpuscular Hemoglobin Concent 27 g/dL (31-37) 29 g/dL (31-37) Red Cell Distribution Width 15.1 % (11.5-14.5) 15.4 % (11.5-14.5) Platelet Count 260 x10^3/uL (140-400) 400 x10^3/uL (140-400) Neutrophils (%) (Auto) 71 % (31-73) 72 % (31-73) Lymphocytes (%) (Auto) 24 % (24-48) 25 % (24-48) Monocytes (%) (Auto) 4 % (0-9) 2 % (0-9) Eosinophils (%) (Auto) 1 % (0-3) 1 % (0-3) Basophils (%) (Auto) 0 % (0-3) 0 % (0-3) Neutrophils # (Auto) 16.4 x10^3/uL (1.8-7.7) 12.9 x10^3/uL (1.8-7.7) Lymphocytes # (Auto) 5.5 x10^3/uL (1.0-4.8) 4.5 x10^3/uL (1.0-4.8) Monocytes # (Auto) 0.8 x10^3/uL (0.0-1.1) 0.3 x10^3/uL (0.0-1.1) Eosinophils # (Auto) 0.2 x10^3/uL (0.0-0.7) 0.1 x10^3/uL (0.0-0.7) Basophils # (Auto) 0.1 x10^3/uL (0.0-0.2) 0.0 x10^3/uL (0.0-0.2) Segmented Neutrophils % 67 % (35-66) Band Neutrophils % 6 % (0-9) Lymphocytes % 21 % (24-48) Monocytes % 5 % (0-10) Metamyelocytes % 1 % (0-0) Toxic Granulation Slight Toxic Vacuolation Slight Platelet Estimate Adequate (ADEQUATE) Macrocytosis Slight Prothrombin Time 22.6 SEC (11.7-14.0) Prothromb Time International Ratio 2.1 (0.8-1.1) Activated Partial Thromboplast Time 44 SEC (24-38) Sodium Level 145 mmol/L (136-145) 142 mmol/L (136-145) Potassium Level 7.0 mmol/L (3.5-5.1) 5.2 mmol/L (3.5-5.1) Chloride Level 101 mmol/L (98-107) 99 mmol/L (98-107) Carbon Dioxide Level 11 mmol/L (21-32) 11 mmol/L (21-32) Anion Gap 33 (6-14) 32 (6-14) Blood Urea Nitrogen 58 mg/dL (8-26) 56 mg/dL (8-26) Creatinine 3.8 mg/dL (0.7-1.3) 3.4 mg/dL (0.7-1.3) Estimated GFR (Cockcroft-Gault) 18.0 20.5 BUN/Creatinine Ratio 15 (6-20) Glucose Level 1001 mg/dL (70-99) 707 mg/dL (70-99) 1275 mg/dL (70-99) Lactic Acid Level 14.7 mmol/L (0.4-2.0) 7.5 mmol/L (0.4-2.0) Calcium Level 18.0 mg/dL (8.5-10.1) 12.0 mg/dL (8.5-10.1) Magnesium Level 4.9 mg/dL (1.8-2.4) 4.2 mg/dL (1.8-2.4) Total Bilirubin 0.5 mg/dL (0.2-1.0) Aspartate Amino Transf (AST/SGOT) 129 U/L (15-37) Alanine Aminotransferase (ALT/SGPT) 91 U/L (16-63) Alkaline Phosphatase 79 U/L (46-116) Troponin I High Sensitivity 58 ng/L (4-75) Total Protein 5.8 g/dL (6.4-8.2) Albumin 3.0 g/dL (3.4-5.0) Albumin/Globulin Ratio 1.1 (1.0-1.7) Procalcitonin 7.11 ng/mL (0.00-0.10) Salicylates Level 3.7 mg/dL (2.8-20.0) Salicylate Last Dose Date Unk Salicylate Last Dose Time Unk Acetaminophen Level < 2 mcg/ml (10-30) Acetaminophen Last Dose Date Unk Acetaminophen Last Dose Time Unk Ethyl Alcohol Level < 10 mg/dL (0-10) Acetone Level Mod pos (NEG) O2 Saturation 97 % (92-99) Arterial Blood pO2 at Patient Temp 176 mmHg (85-108) FiO2 100 Phosphorus Level 13.7 mg/dL (2.6-4.7) Hepatitis B Surface Antigen Nonreactive (Nonreactive) Hepatitis B Surface Antibody Nonreactive Test 03/07/22 06:35 03/07/22 08:10 03/07/22 08:45 03/07/22 08:58 Glucose Level 807 mg/dL (70-99) 767 mg/dL (70-99) O2 Saturation 98 % (92-99) 98 % (92-99) Arterial Blood pH 7.13 (7.35-7.45) 6.98 (7.35-7.45) Arterial Blood pCO2 at Patient Temp 48 mmHg (35-46) 90 mmHg (35-46) Arterial Blood pO2 at Patient Temp 141 mmHg (85-108) 189 mmHg (85-108) Arterial Blood HCO3 16 mmol/L (21-28) 21 mmol/L (21-28) Arterial Blood Base Excess -14 mmol/L (-3-3) -13 mmol/L (-3-3) FiO2 100 100 Urine Collection Type U cath Urine Color (Auto) Light orange Urine Turbidity Hazy Urine pH (Auto) 5.5 (<5.0-8.0) Urine Specific [place] 1.018 (1.000-1.030) Urine Protein (Auto) 100 mg/dL (Negative) Urine Glucose (Auto)(UA) >=1000 mg/dL (Negative) Urine Ketones (Auto) 20 mg/dL (Negative) Urine Blood (Auto) Large (Negative) Urine Nitrite Negative (Negative) Urine Bilirubin (Auto) Negative (Negative) Urine Urobilinogen (Auto) Normal mg/dL (Normal) Urine Leukocyte Esterase (Auto) Negative (Negative) Urine RBC 3-5 /HPF (0-2) Urine WBC Occ /HPF (0-4) Urine Amorphous Sediment Present /HPF Urine Bacteria Few /HPF (0-FEW) Urine Opiates Screen Neg (NEG) Urine Methadone Screen Neg (NEG) Urine Barbiturates Neg (NEG) Urine Phencyclidine Screen Neg (NEG) Urine Amphetamine/Methamphetamine Neg (NEG) Urine Benzodiazepines Screen Neg (NEG) Urine Cocaine Screen Neg (NEG) Urine Cannabinoids Screen Pos (NEG) Urine Ethyl Alcohol Neg (NEG) Test 03/07/22 11:25 Sodium Level 145 mmol/L (136-145) Potassium Level 2.9 mmol/L (3.5-5.1) Chloride Level 100 mmol/L (98-107) Carbon Dioxide Level 22 mmol/L (21-32) Anion Gap 23 (6-14) Blood Urea Nitrogen 40 mg/dL (8-26) Creatinine 2.9 mg/dL (0.7-1.3) Estimated GFR (Cockcroft-Gault) 24.6 BUN/Creatinine Ratio 14 (6-20) Glucose Level 694 mg/dL (70-99) Calcium Level 8.4 mg/dL (8.5-10.1) Total Bilirubin 1.3 mg/dL (0.2-1.0) Aspartate Amino Transf (AST/SGOT) 549 U/L (15-37) Alanine Aminotransferase (ALT/SGPT) 247 U/L (16-63) Alkaline Phosphatase 79 U/L (46-116) Total Protein 5.9 g/dL (6.4-8.2) Albumin 2.9 g/dL (3.4-5.0) Albumin/Globulin Ratio 1.0 (1.0-1.7) Medications Active Scripts Medications Dose Route/Sig Max Daily Dose Days Date Category Novolog Flexpen (Insulin Aspart) 100 Unit/1 Ml Insuln.pen 1 Unit SQ TIDBFRMEAL PRN 02/10/20 Reported Lantus Solostar (Insulin Glargine,Hum.rec.anlog) 100 Unit/1 Ml Insuln.pen 65 Unit SQ DAILY 02/10/20 Reported Impression . Full note dictated Acute respiratory failure multifactorial DKA Imz-ii-rhpwtilh cardiopulmonary arrest PAYAL MIRANDA MD Mar 07, 2022 12:54
[2022-03-07] MEDS ORDERED: SODIUM BICARBONATE VIAL 150 MEQ in IV DEXTROSE 5% 1,000 ML IV SCH (14:30)
[2022-03-07 15:04] LABS: CALCIUM 8.6 mg/dL (8.5-10.1); CREATININE 3.3 mg/dL (0.7-1.3); GFR 21.2
[2022-03-07 15:08] LABS: MAGNESIUM 1.6 mg/dL (1.8-2.4); PHOSPHORUS 0.6 mg/dL (2.6-4.7)
--- NOTE | 2022-03-07 15:25 | NUR ---
call placed to dr lopez regarding lab results, electrolyte replacement orders received.
[2022-03-07] MEDS ORDERED: POTASSIUM CHLORIDE 20MEQ 100 ML IV SCH (15:30)
[2022-03-07] MEDS ORDERED: MAGNESIUM SULFATE 2GM 50 ML IV ONE (16:00)
[2022-03-07] MEDS ORDERED: POTASSIUM PHOS,M-BASIC-D-BASIC 20 MMOL in IV NORMAL SALINE 250ML 250 ML IV SCH (16:30)
--- NOTE | 2022-03-07 16:42 | NUR ---
PT OFFICIALLY SWITCHED TO MTN AT 1545, PHYSICIANS NOTIFIED. FAMILY ON SITE.
--- NOTE | 2022-03-07 16:45 | PDOC ---
Provider Note Date of Service: DATE: 03/07/22 TIME: 16:41 Provider Note Late entry: Called for arterial line placement. Patient is s/p cardiac cardiac or respiratory arrest. Permit obtained. Patient moribund and not responsive. Right wrist prepped. No. 20 gauge angiocath placed first attempt with return of bright red pusitile blood return. Line secured with sterile op-site and tape. Good waveform. No complications. Well tolerated. Ramesh Leavitt MD Justifications for Admission Other Justification s/p cardiac arrest RAMESH LEAVITT MD Mar 07, 2022 16:45
--- NOTE | 2022-03-07 22:07 | CONS ---
DATE OF CONSULTATION: 03/07/2022 ATTENDING PHYSICIAN: Chadwick López MD REASON FOR CONSULTATION: The patient is seen in pulmonary consultation at the request of Dr. López for vent management, [id number] cardiopulmonary arrest. HISTORY OF PRESENT ILLNESS: The patient is a 36-year-old with a history of type 1 diabetes, presented by EMS after suffering an sds-vr-kdtwbenu witnessed cardiac arrest. The patient was witnessed to become unresponsive. Family initially thought he was hypoglycemic. They tried to administer sugar containing fluids. They noted this was not helping. They checked his pulse, found him pulseless. Initially, a bystander started CPR. EMS was called. Upon arrival to scene within 5-7 minutes, initial rhythm by EMS was found to be asystole. Resuscitation started with ACLS protocol. Apparently, they resuscitated him for 25 minutes with several rounds of epinephrine. At one point, he was in ventricular fibrillation. He was defibrillated. He was also given lidocaine and IV fluids. Upon arrival to the Emergency Department, the patient was still in cardiac arrest. He was eventually intubated. He was resuscitated and then eventually had return of spontaneous circulation. He was placed on empiric antibiotics. Chest x-ray initially revealed ground glass opacities compatible with pulmonary edema. The patient was transferred to the intensive care unit. I was asked to see him in consultation. In the interim, he was evaluated by Dr. Doty from Neurology Department. The patient's examination compatible with brain . He is currently being evaluated for the possibility of organ donor. He is currently on multiple pressors. He does not respond. He does not assist the ventilator. PAST MEDICAL HISTORY: Obtained by reviewing the current documentation, According to the documentation, he has a history of type 1 diabetes. PAST SURGICAL HISTORY: Previous knee surgery. SOCIAL HISTORY: He has never smoked. REVIEW OF SYSTEMS: Unobtainable secondary to the patient's condition. PHYSICAL EXAMINATION: VITAL SIGNS: Stable, on multiple pressors. He is currently on 100% FiO2, 5 of PEEP. HEENT: Eyes: The pupils were fixed and dilated. No oculocephalic reflex. Orally placed endotracheal tube. CHEST: Full expansion. LUNGS: Adequate flow with scattered rhonchi. CARDIOVASCULAR: Regular rate and rhythm with S1, S2, no S3. ABDOMEN: Soft, nondistended. EXTREMITIES: No clubbing or cyanosis. Minimal edema. NEUROLOGIC: The patient had exam compatible with brain . No oculocephalic reflexes. Pupils were fixed and dilated. Did not assist the ventilator. LABORATORY DATA: White count was elevated. Hemoglobin and hematocrit were noted. Arterial blood gas earlier today, pH of 6.98, PaCO2 of 90, pO2 of 189. Electrolytes were all deranged. BUN and creatinine were elevated. INR was 2.1. UA was noted. Toxicology screen was positive for cannabinoids. IMPRESSION: 1. Acute hypoxemic respiratory failure secondary to sco-uk-jiagcvpj cardiopulmonary arrest. 2. Bth-eg-ncizlkow cardiopulmonary arrest. 3. Severe metabolic acidosis combined with respiratory acidosis. 4. History of type 1 diabetes. 5. Per Neurology, the patient meets criteria for brain . 6. Acute kidney injury. 7. Electrolyte abnormalities. 8. Diabetic ketoacidosis. 9. Leukocytosis. 10. Possible sepsis. 11. Elevated liver chemistries. 12. Coagulopathy. 13. Positive drug screen for cannabinoids. PLAN: 1. We will adjust minute ventilation to normalize pH. 2. The patient is being evaluated for possible organ donation. 3. Continue current support. 4. Nephrology has been consulted. 5. Follow DKA protocol. I do appreciate the privilege in sharing in the patient's care. CHRISTY DR: Denia TID: [id number]
--- NOTE | 2022-03-08 10:41 | EKG ---
[facility] [address] [place] [address] Test Date: 2022-03-06 Test Time: 22:41:24 Pat Name: FRANCISCO JAVIER ASHER Department: Room: Gender: M [employer] Steward: : 1985 Requested By: ELAINE MARX Order Number: [id number] Reading MD: Measurements Intervals [place] Rate: 67 P: MN: QRS: 42 QRSD: 156 T: 9 QT: 434 QTc: 462 Interpretive Statements IRREGULAR RHYTHM, NO P-WAVE FOUND LOW LIMB LEAD VOLTAGE LEFT BUNDLE BRANCH BLOCK ABNORMAL ECG RI6.02 No previous ECG available for comparison
--- NOTE | 2022-03-18 10:24 | PDOC3 ---
[facility]-Discharge Summary Date of Admission: Date of Admission: April 05, 2022 Date of Discharge: Date of Discharge: April 06, 2022 Discharge Diagnosis: Discharge Diagnosis: Status postcardiac arrest Respiratory failure requiring intubation DKA Lactic acidosis LANDRY due to vasomotor nephropathy Acute electrolyte derangementhyperkalemia, hypercalcemia Severe hyperkalemia Hospital Course: Hospital Course: 36-year-old male with past medical history of diabetes mellitus type 1. He is brought to this facility after cardiac arrest that was witnessed in the field prior to arrival. There were witnesses said that the patient did become unresponsive. Family was present and they gave him oral sugar fluids because they thought he was hypoglycemic. Pulse was checked at the time and he was found to be pulseless. CPR was initiated. EMS arrived within 5 minutes. Initial rhythm was asystole. ACLS was initiated. 25 minutes of ACLS protocol was run before arrival to the hospital. Patient shocked twice for V. fib. Sugar on arrival was 500. After continuing ACLS ROSC he was achieved. Patient was intubated without sedation. Vasopressor with Levophed and epinephrine was continued. Empiric antibiotics started. EKG was normal without any acute ST elevations. Hypothermia protocol initiated. This is hospitalist assumed care at 2330. Nephrology was consulted for hemodialysis emergently for severe acidosis and severe hyperkalemia. IR was consulted for HD temporary catheter placement. Admitted to ICU for further management. 03/07/2022 No acute events overnight. HD catheter placed by IR and dialysis initiated. Current vent settings of 22/500/100/5. Neuro examination by nurse and neurology suggesting brain . Waiting for family to consider withdrawing care. Patient's chart, labs, images were reviewed and discussed with RN Patient was transferred to transplant service for organ donor. Disposition: Disposition/Orders: D/C to Another Facility (Transferred for organ donor) Activity: Activity: Resume previous activity Diet: Diet: NPO Medications: Home Meds Reported Medications Insulin Aspart (NOVOLOG FLEXPEN) 100 Unit/1 Ml Insuln.pen, 1 UNIT SQ TIDBFRMEAL PRN for DM, SYR 02/10/20 Insulin Glargine,Hum.rec.anlog (LANTUS SOLOSTAR) 100 Unit/1 Ml Insuln.pen, 65 UNIT SQ DAILY for DM, #15 ML 3 Refills 02/10/20 Scheduled Insulin Aspart (Novolog Flexpen), 1 UNIT SQ TIDBFRMEAL PRN, (Reported) Insulin Glargine,Hum.rec.anlog (Lantus Solostar), 65 UNIT SQ DAILY, (Reported) Total Time: Total Time: Total time spent was 40 minutes in preparing scripts, discharge planning with SWI and RN and preparing this discharge summary Patient seen and examined on day of discharge. No acute abnormal findings. Justicifation of Admission Dx: Justifications for Admission: Justification of Admission Dx: Yes DKA: DKA PATRICA KELLER MD March 18, 2022 10:24
== END 2022-03-07 12:46 | DRG 208 ==
LOC: ER 22:28 → 1 WEST ICU 22:47
PROVIDERS: ADMIT Internal Medicine; ATTEND Internal Medicine
PROC: 5A12012 Performance of Cardiac Output, Single, Manual (ICD-10-PCS; principal; 2022-03-06)
PROC: 0BH18EZ Insertion of Endotracheal Airway into Trachea, Via Natural or Artificial Opening Endoscopic (ICD-10-PCS; 2022-03-06)
PROC: 5A1945Z Respiratory Ventilation, 24-96 Consecutive Hours (ICD-10-PCS; 2022-03-06)
PROC: 02HV33Z Insertion of Infusion Device into Superior Vena Cava, Percutaneous Approach (ICD-10-PCS; 2022-03-07)
PROC: B548ZZA Ultrasonography of Superior Vena Cava, Guidance (ICD-10-PCS; 2022-03-07)
PROC: 03HY32Z Insertion of Monitoring Device into Upper Artery, Percutaneous Approach (ICD-10-PCS; 2022-03-07)
DX: J96.01 Acute respiratory failure with hypoxia (principal); N17.0 Acute kidney failure with tubular necrosis; E10.10 Type 1 diabetes mellitus with ketoacidosis without coma; D68.9 Coagulation defect, unspecified; J81.1 Chronic pulmonary edema; E87.4 Mixed disorder of acid-base balance; E87.5 Hyperkalemia; E83.52 Hypercalcemia; I46.9 Cardiac arrest, cause unspecified; I49.01 Ventricular fibrillation; Z66 Do not resuscitate; Z79.4 Long term (current) use of insulin; Z87.820 Personal history of traumatic brain injury; Z88.2 Allergy status to sulfonamides
CPT/HCPCS: 31500; 31720; 36415; 36556; 36600; 51702; 71045; 76937; 80048; 80053; 80307; 80329; 81001; 82010; 82805; 82947; 82962; 83036; 83605; 83735; 84100; 84145; 84484; 85007; 85025; 85610; 85730; 86706; 87040; 87340; 92950; 93005; 94002; 94003; 94760; 99292; C1892; C9113; G0480; J0171; J0282; J0461; J1815; J2543; J3370; J3475; J3480; J3490; J7030; J7040; J7050; J7060; 99291-25; G0378

== ENCOUNTER 2022-03-07 12:45 | Inpatient (IN) | payer OTHER ==
[~2022-03-07] VITALS: Ht 185.4 cm; Wt 122.0 kg
[2022-03-07] MEDS ORDERED: EPINEPHrine VIAL 10 MG in IV NORMAL SALINE 250ML 250 ML IV PRN (17:00)
[2022-03-07] MEDS ORDERED: VASOPRESSIN - VASOSTRICT 20 UNIT in IV NORMAL SALINE 100ML 100 ML IV PRN (17:00)
[2022-03-07] MEDS ORDERED: AMIODARONE 450 MG in IV DEXTROSE 5% 250 ML IV PRN (17:15)
[2022-03-07] MEDS: VECURONIUM BOLUS 10 MG VIAL. IV ONE ×2 (17:15→22:26)
[2022-03-07] MEDS: NOREPINEPHRINE VIAL 32 MG in IV DEXTROSE 5% 250 ML IV PRN ×2 (17:36→23:46)
[2022-03-07 18:05] LABS: BASE EXCESS ABG 2 mmol/L (-3-3); FIO2 ABG 100; HCO3 ABG 27 mmol/L (21-28); PCO2 ABG 45 mmHg (35-46); PO2 ABG 344 mmHg (85-108); SAT O2 ABG 99 % (92-99)
--- NOTE | 2022-03-07 18:11 | RAD ---
INDICATION: Reason: LINE PLACEMENT STATUS OF HEART AND LUNGS / Spl. Instructions: / History: COMPARISON: Earlier same day FINDINGS: Single view of chest obtained. Endotracheal tube is seen. 2. Right-sided vascular catheters with one of them located in the right atrium and the other in the s uperior vena cava. Enteric tube is seen coursing below the diaphragm. Mild interstitial opacities again seen IMPRESSION: * Lines and tubes as above. * Mild interstitial opacities are again seen and could be from mild edema or interstitial infiltrate . Slightly decreased from prior. Electronically signed by: Hernan Lazcano MD (03/07/2022 6:09 PM) [id number]
[2022-03-07 18:12] LABS: CALCIUM 8.6 mg/dL (8.5-10.1); CREATININE 3.5 mg/dL (0.7-1.3); GFR 19.8; POTASSIUM 3.4 mmol/L (3.5-5.1)
[2022-03-07 18:15] LABS: BASO % 0 % (0-3); EOS # 0.1 x10^3/uL (0.0-0.7); EOS % 1 % (0-3); HEMATOCRIT 34.8 % (39.0-53.0); HEMOGLOBIN 11.9 g/dL (13.0-17.5); LYMPH # 1.6 x10^3/uL (1.0-4.8); LYMPH % 16 % (24-48); MEAN CORPUSCULAR HEMOGLOBIN 28 pg (25-35); MEAN CORPUSCULAR HGB CONC 34 g/dL (31-37); MEAN CORPUSCULAR VOLUME 82 fL (79-100); MONO # 0.4 x10^3/uL (0.0-1.1); MONO % 4 % (0-9); NEUT # 7.9 x10^3/uL (1.8-7.7); NEUT % 80 % (31-73); PLATELET COUNT 69 x10^3/uL (140-400); RED BLOOD COUNT 4.25 x10^6/uL (4.30-5.70); WHITE BLOOD COUNT 9.9 x10^3/uL (4.0-11.0)
[2022-03-07 18:18] LABS: ALBUMIN 2.8 g/dL (3.4-5.0); DIRECT BILIRUBIN 0.3 mg/dL (0.0-0.2); MAGNESIUM 1.9 mg/dL (1.8-2.4); PHOSPHORUS 1.1 mg/dL (2.6-4.7); PROTHROMBIN TIME PATIENT 16.6 SEC (11.7-14.0); TOTAL BILIRUBIN 1.1 mg/dL (0.2-1.0); TOTAL PROTEIN 5.5 g/dL (6.4-8.2)
[2022-03-07 18:23] LABS: RBC,URINE TNTC /HPF (0-2)
[2022-03-07 18:25] LABS: AMORPHOUS SEDIMENT,UR PRESENT /HPF
[2022-03-07 18:26] LABS: BACTERIA,URINE FEW /HPF (0-FEW)
--- NOTE | 2022-03-07 18:55 | RAD ---
Brain Scintigraphy Technique: After the IV administration of 20.0 mCi Tc-99m DTPA, dynamic anterior and posterior flow s cintigraphic images were obtained. Approximately 5 minutes after the IV injection, static scintigraph ic images were obtained in the anterior, posterior, and bilateral lateral projections. After approxim ately 90 minutes, a similar delayed set of static scintigraphic images was obtained. History: Found unresponsive Findings: This examination was performed portably in the Intensive Care Unit. The anterior and post erior cerebral radionuclide dynamic images demonstrates normal transit of the administered bolus of a ctivity through the expected course of the common carotid arteries and branches of the external carot id arteries, but there is no progression of this bolus through the course of the anterior and middle cerebral arteries. There is no cerebral capillary blush phase, and there is no visualization of cere bral venous sinuses. Subsequent static images in anterior, posterior, and bilateral lateral projecti ons demonstrate absent intracranial uptake (empty light bulb sign) with persistent radiopharmaceutica l distribution in the external carotid artery distributions (hot nose sign) . These findings indica te absence of effective cerebral perfusion. Impression: No effective cerebral perfusion. Findings are consistent with the clinical concern for brain . Electronically signed by: Andre Gusman MD (03/07/2022 6:52 PM) [facility]ITALElizabeth
[2022-03-07] MEDS ORDERED: SODIUM BICARBONATE VIAL 150 MEQ in IV DEXTROSE 5% 1,000 ML IV SCH (19:15)
[2022-03-07] MEDS: INSULIN REGULAR VIAL 100 UNIT in IV NORMAL SALINE 100ML 100 ML IV PRN (19:19)
[2022-03-07] MEDS: IV 1/2 NORMAL SALINE 1,000 ML IV SCH ×2 (19:34→23:43)
[2022-03-07] MEDS ORDERED: CALCIUM GLUCONATE 1,000 MG in IV NORMAL SALINE 100ML 100 ML IV ONE (21:00)
[2022-03-07] MEDS ORDERED: ALBUMIN HUMAN 5% 500 ML IV ONE (21:00)
[2022-03-07] MEDS ORDERED: MAGNESIUM SULFATE 2GM 50 ML IV ONE (21:00)
[2022-03-07] MEDS: POTASSIUM PHOS,M-BASIC-D-BASIC 15 MMOL in IV NORMAL SALINE 100ML 100 ML IV SCH ×2 (21:45→23:43)
[2022-03-07] MEDS ORDERED: VECURONIUM BOLUS 10 MG VIAL. IV ONE (22:18)
[2022-03-07] MEDS: HEPARIN for SUB-Q USE 5,000 UNIT/ML VIAL. SQ SCH (22:57)
[2022-03-07] MEDS: POTASSIUM CHLORIDE 20MEQ 100 ML IV SCH (23:07)
[2022-03-07] MEDS: IV NORMAL SALINE 1000ML BAG 1,000 ML IV SCH (23:45)
[2022-03-08] VITALS (20 sets, daily range): BP systolic 88–160; BP diastolic 52–81
[2022-03-08] MEDS: PIPERACILLIN/TAZOBACTAM 3.375 GM in IV NORMAL SALINE 50ML 50 ML IV SCH ×4 (00:05→18:12)
[2022-03-08 00:12] LABS: BASO % 0 % (0-3); EOS % 0 % (0-3); HEMATOCRIT 30.8 % (39.0-53.0); HEMOGLOBIN 10.8 g/dL (13.0-17.5); LYMPH % 12 % (24-48); MEAN CORPUSCULAR HEMOGLOBIN 28 pg (25-35); MEAN CORPUSCULAR HGB CONC 35 g/dL (31-37); MEAN CORPUSCULAR VOLUME 81 fL (79-100); MONO # 0.2 x10^3/uL (0.0-1.1); MONO % 2 % (0-9); NEUT # 6.8 x10^3/uL (1.8-7.7); NEUT % 85 % (31-73); PLATELET COUNT 36 x10^3/uL (140-400); RED BLOOD COUNT 3.81 x10^6/uL (4.30-5.70); RED CELL DISTRIBUTION WIDTH 13.5 % (11.5-14.5)
[2022-03-08 00:20] LABS: PROTHROMBIN TIME PATIENT 16.8 SEC (11.7-14.0)
[2022-03-08 00:35] LABS: CALCIUM 8.2 mg/dL (8.5-10.1); CREATININE 3.5 mg/dL (0.7-1.3); GFR 19.8; POTASSIUM 3.9 mmol/L (3.5-5.1)
[2022-03-08 00:50] LABS: ALBUMIN 3.1 g/dL (3.4-5.0); DIRECT BILIRUBIN 0.4 mg/dL (0.0-0.2); MAGNESIUM 2.2 mg/dL (1.8-2.4); PHOSPHORUS 1.8 mg/dL (2.6-4.7); TOTAL BILIRUBIN 1.5 mg/dL (0.2-1.0); TOTAL PROTEIN 5.2 g/dL (6.4-8.2)
[2022-03-08] MEDS: POTASSIUM CHLORIDE 20MEQ 100 ML IV SCH (00:58)
[2022-03-08] MEDS: IV 1/2 NORMAL SALINE 1,000 ML IV SCH ×2 (01:15→09:15)
[2022-03-08] MEDS: IV DEXTROSE 5% 1,000 ML IV SCH ×2 (01:27→10:32)
[2022-03-08] MEDS ORDERED: CALCIUM GLUCONATE 1,000 MG in IV NORMAL SALINE 100ML 100 ML IV ONE (01:30)
[2022-03-08] MEDS ORDERED: ALBUMIN HUMAN 25% 50 ML IV ONE ×2 (02:00→06:00)
[2022-03-08] MEDS ORDERED: FUROSEMIDE 40 MG/4 ML VIAL. IVP ONE ×2 (02:00→23:45)
[2022-03-08 03:17] LABS: PHOSPHORUS 2.5 mg/dL (2.6-4.7); POTASSIUM 5.3 mmol/L (3.5-5.1)
[2022-03-08] MEDS: NOREPINEPHRINE VIAL 8 MG in IV DEXTROSE 5% 250 ML IV PRN ×2 (03:54→13:30)
[2022-03-08] MEDS: INSULIN REGULAR VIAL 100 UNIT in IV NORMAL SALINE 100ML 100 ML IV PRN ×3 (05:00→20:17)
[2022-03-08] MEDS: HEPARIN for SUB-Q USE 5,000 UNIT/ML VIAL. SQ SCH ×3 (05:55→21:55)
[2022-03-08] MEDS ORDERED: POLYVINYL ALCOHOL 1.4% OPHTH SOLUTION 15ML BOTTLE. OU PRN (06:15)
[2022-03-08 06:27] LABS: BASO % 0 % (0-3); EOS % 0 % (0-3); HEMATOCRIT 29.8 % (39.0-53.0); HEMOGLOBIN 9.9 g/dL (13.0-17.5); LYMPH # 0.8 x10^3/uL (1.0-4.8); LYMPH % 7 % (24-48); MEAN CORPUSCULAR HEMOGLOBIN 27 pg (25-35); MEAN CORPUSCULAR HGB CONC 33 g/dL (31-37); MEAN CORPUSCULAR VOLUME 82 fL (79-100); MONO # 0.2 x10^3/uL (0.0-1.1); MONO % 2 % (0-9); NEUT # 10.5 x10^3/uL (1.8-7.7); NEUT % 91 % (31-73); PLATELET COUNT 27 x10^3/uL (140-400); RED BLOOD COUNT 3.61 x10^6/uL (4.30-5.70); RED CELL DISTRIBUTION WIDTH 14.1 % (11.5-14.5); WHITE BLOOD COUNT 11.5 x10^3/uL (4.0-11.0)
[2022-03-08 06:37] LABS: CALCIUM 7.8 mg/dL (8.5-10.1); CREATININE 3.6 mg/dL (0.7-1.3); GFR 19.2; POTASSIUM 5.3 mmol/L (3.5-5.1)
[2022-03-08 06:48] LABS: PROTHROMBIN TIME PATIENT 15.3 SEC (11.7-14.0)
[2022-03-08 06:51] LABS: ALBUMIN 3.1 g/dL (3.4-5.0); DIRECT BILIRUBIN 0.4 mg/dL (0.0-0.2); MAGNESIUM 1.9 mg/dL (1.8-2.4); PHOSPHORUS 1.8 mg/dL (2.6-4.7); TOTAL BILIRUBIN 1.1 mg/dL (0.2-1.0); TOTAL PROTEIN 5.2 g/dL (6.4-8.2)
[2022-03-08] MEDS ORDERED: ALBUMIN HUMAN 5% 500 ML IV ONE (07:45)
[2022-03-08] MEDS ORDERED: CALCIUM CHLORIDE 1,000 MG/10 ML DISP.SYRIN IV ONE ×2 (07:45→14:00)
[2022-03-08] MEDS ORDERED: SODIUM PHOSPHATE IV ONE (10:00)
[2022-03-08] MEDS ORDERED: NORMAL SALINE IV ONE (10:00)
--- NOTE | 2022-03-08 10:28 | RAD ---
XR CHEST 1V 03/08/2022 Reason: LINE PLACEMENT;STATUS OF HEART/LUNGS Comparison: Chest radiograph 03/07/2020 Technique: Portable upright radiograph the chest. Lung apices are not included. Findings: No focal consolidation. No pneumothorax. Minimal blunting of costophrenic angles. The cardiomediasti nal silhouette is within normal limits. No pulmonary vascular redistribution. Stable position of 2 ce ntral venous catheters, endotracheal tube and nasogastric tube. Decreased interstitial opacity. Impression: 1. Stable lines and tubes. 2. Decreased interstitial opacity. 3. Possible trace pleural effusions. Electronically signed by: Ventura Jaimes MD (03/08/2022 10:26 AM) [id number]
[2022-03-08 12:20] LABS: BASO % 0 % (0-3); EOS % 0 % (0-3); HEMATOCRIT 27.7 % (39.0-53.0); HEMOGLOBIN 9.3 g/dL (13.0-17.5); LYMPH # 0.8 x10^3/uL (1.0-4.8); LYMPH % 7 % (24-48); MEAN CORPUSCULAR HEMOGLOBIN 28 pg (25-35); MEAN CORPUSCULAR HGB CONC 34 g/dL (31-37); MEAN CORPUSCULAR VOLUME 82 fL (79-100); MONO # 0.1 x10^3/uL (0.0-1.1); MONO % 1 % (0-9); NEUT # 9.9 x10^3/uL (1.8-7.7); NEUT % 91 % (31-73); PLATELET COUNT 26 x10^3/uL (140-400); RED BLOOD COUNT 3.37 x10^6/uL (4.30-5.70); RED CELL DISTRIBUTION WIDTH 14.2 % (11.5-14.5); WHITE BLOOD COUNT 10.9 x10^3/uL (4.0-11.0)
[2022-03-08 12:31] LABS: PROTHROMBIN TIME PATIENT 15.5 SEC (11.7-14.0)
[2022-03-08 12:35] LABS: CALCIUM 8.2 mg/dL (8.5-10.1); POTASSIUM 5.1 mmol/L (3.5-5.1)
[2022-03-08 12:50] LABS: ALBUMIN 3.6 g/dL (3.4-5.0); DIRECT BILIRUBIN 0.4 mg/dL (0.0-0.2); MAGNESIUM 1.9 mg/dL (1.8-2.4); PHOSPHORUS 5.4 mg/dL (2.6-4.7); TOTAL PROTEIN 5.5 g/dL (6.4-8.2)
[2022-03-08] MEDS ORDERED: MAGNESIUM SULFATE 2GM 50 ML IV ONE (14:00)
[2022-03-08] MEDS: IV DEXTROSE 5% - 0.9 % NACL 1,000 ML IV SCH ×3 (14:50→23:00)
[2022-03-08 17:45] LABS: BASO % 0 % (0-3); EOS % 0 % (0-3); HEMATOCRIT 25.4 % (39.0-53.0); HEMOGLOBIN 8.6 g/dL (13.0-17.5); LYMPH # 0.6 x10^3/uL (1.0-4.8); LYMPH % 6 % (24-48); MEAN CORPUSCULAR HEMOGLOBIN 28 pg (25-35); MEAN CORPUSCULAR HGB CONC 34 g/dL (31-37); MEAN CORPUSCULAR VOLUME 83 fL (79-100); MONO # 0.2 x10^3/uL (0.0-1.1); MONO % 2 % (0-9); NEUT # 8.3 x10^3/uL (1.8-7.7); NEUT % 92 % (31-73); PLATELET COUNT 33 x10^3/uL (140-400); RED BLOOD COUNT 3.07 x10^6/uL (4.30-5.70); RED CELL DISTRIBUTION WIDTH 14.3 % (11.5-14.5)
[2022-03-08 18:00] LABS: CALCIUM 8.5 mg/dL (8.5-10.1); CREATININE 4.3 mg/dL (0.7-1.3); GFR 15.6; POTASSIUM 4.5 mmol/L (3.5-5.1); PROTHROMBIN TIME PATIENT 14.7 SEC (11.7-14.0)
[2022-03-08 18:17] LABS: ALBUMIN 3.2 g/dL (3.4-5.0); DIRECT BILIRUBIN 0.4 mg/dL (0.0-0.2); MAGNESIUM 2.3 mg/dL (1.8-2.4); PHOSPHORUS 3.9 mg/dL (2.6-4.7); TOTAL BILIRUBIN 0.9 mg/dL (0.2-1.0); TOTAL PROTEIN 5.2 g/dL (6.4-8.2)
[2022-03-08 18:23] LABS: % BANDS 55 % (0-9); % LYMPHS 7 % (24-48); % METAS 5 % (0-0); % MONOS 5 % (0-10); % MYELOS 3 % (0-0); % SEGS 25 % (35-66); PLT ESTIMATE DECREASED (ADEQUATE)
[2022-03-08 18:24] LABS: HYPOCHROMIA SLIGHT
[2022-03-08] MEDS: IV NORMAL SALINE 1000ML BAG 1,000 ML IV SCH (23:56)
[2022-03-09] VITALS (9 sets, daily range): BP systolic 106–146; BP diastolic 55–74
[2022-03-09 00:14] LABS: BASO % 0 % (0-3); EOS % 0 % (0-3); HEMATOCRIT 25.4 % (39.0-53.0); HEMOGLOBIN 8.7 g/dL (13.0-17.5); LYMPH # 0.4 x10^3/uL (1.0-4.8); LYMPH % 4 % (24-48); MEAN CORPUSCULAR HEMOGLOBIN 28 pg (25-35); MEAN CORPUSCULAR HGB CONC 34 g/dL (31-37); MEAN CORPUSCULAR VOLUME 82 fL (79-100); MONO # 0.3 x10^3/uL (0.0-1.1); MONO % 3 % (0-9); NEUT # 9.8 x10^3/uL (1.8-7.7); NEUT % 93 % (31-73); PLATELET COUNT 28 x10^3/uL (140-400); RED BLOOD COUNT 3.09 x10^6/uL (4.30-5.70); RED CELL DISTRIBUTION WIDTH 14.1 % (11.5-14.5); WHITE BLOOD COUNT 10.6 x10^3/uL (4.0-11.0)
[2022-03-09 00:16] LABS: CALCIUM 8.7 mg/dL (8.5-10.1); CREATININE 4.6 mg/dL (0.7-1.3); GFR 14.5; POTASSIUM 4.3 mmol/L (3.5-5.1)
[2022-03-09] MEDS: PIPERACILLIN/TAZOBACTAM 3.375 GM in IV NORMAL SALINE 50ML 50 ML IV SCH ×4 (00:16→17:34)
[2022-03-09 00:19] LABS: PROTHROMBIN TIME PATIENT 13.8 SEC (11.7-14.0)
[2022-03-09 00:31] LABS: DIRECT BILIRUBIN 0.4 mg/dL (0.0-0.2); MAGNESIUM 2.4 mg/dL (1.8-2.4); PHOSPHORUS 3.3 mg/dL (2.6-4.7); TOTAL BILIRUBIN 0.9 mg/dL (0.2-1.0); TOTAL PROTEIN 5.7 g/dL (6.4-8.2)
[2022-03-09] MEDS ORDERED: CALCIUM CHLORIDE 1,000 MG/10 ML DISP.SYRIN IV ONE (01:00)
[2022-03-09 02:14] LABS: HEMOGLOBIN A1C 10.1 % (4.8-5.6)
[2022-03-09] MEDS: NOREPINEPHRINE VIAL 8 MG in IV DEXTROSE 5% 250 ML IV PRN (03:53)
[2022-03-09] MEDS: INSULIN REGULAR VIAL 100 UNIT in IV NORMAL SALINE 100ML 100 ML IV PRN ×2 (03:54→11:41)
[2022-03-09] MEDS: IV DEXTROSE 5% - 0.9 % NACL 1,000 ML IV SCH ×5 (05:45→23:00)
[2022-03-09] MEDS: HEPARIN for SUB-Q USE 5,000 UNIT/ML VIAL. SQ SCH ×3 (05:45→21:52)
[2022-03-09 06:28] LABS: CALCIUM 8.8 mg/dL (8.5-10.1); CREATININE 4.9 mg/dL (0.7-1.3); GFR 13.4
[2022-03-09 06:36] LABS: PROTHROMBIN TIME PATIENT 13.6 SEC (11.7-14.0)
[2022-03-09 06:44] LABS: ALBUMIN 2.8 g/dL (3.4-5.0); DIRECT BILIRUBIN 0.3 mg/dL (0.0-0.2); PHOSPHORUS 3.1 mg/dL (2.6-4.7); TOTAL BILIRUBIN 0.9 mg/dL (0.2-1.0); TOTAL PROTEIN 5.1 g/dL (6.4-8.2)
[2022-03-09 08:07] LABS: BASO % 0 % (0-3); EOS % 0 % (0-3); HEMOGLOBIN 7.8 g/dL (13.0-17.5); LYMPH # 0.4 x10^3/uL (1.0-4.8); LYMPH % 5 % (24-48); MEAN CORPUSCULAR HEMOGLOBIN 28 pg (25-35); MEAN CORPUSCULAR HGB CONC 34 g/dL (31-37); MEAN CORPUSCULAR VOLUME 83 fL (79-100); MONO # 0.2 x10^3/uL (0.0-1.1); MONO % 3 % (0-9); NEUT # 8.1 x10^3/uL (1.8-7.7); NEUT % 93 % (31-73); PLATELET COUNT 35 x10^3/uL (140-400); RED BLOOD COUNT 2.78 x10^6/uL (4.30-5.70); RED CELL DISTRIBUTION WIDTH 14.2 % (11.5-14.5); WHITE BLOOD COUNT 8.8 x10^3/uL (4.0-11.0)
[2022-03-09] MEDS ORDERED: ALBUMIN HUMAN 25% 100 ML IV ONE ×2 (09:30→11:00)
--- NOTE | 2022-03-09 11:45 | CARD ---
MR#: [id number] Date of Study: 03/09/2022 [facility], Referring Physician: Toney GIRARD: Blane Murray [facility] APPROVED REPORT EXAM: Two-dimensional and M-mode echocardiogram with Doppler and color Doppler. Other Information Quality : AverageHR: 98bpm Rhythm : NSR INDICATION Organ transplant (MTN) Echo Enhancing Agent Indication: Rule Out Septal Defect RISK FACTORS Hypertension Obesity Diabetes 2D DIMENSIONS RVDd4.3 (2.9-3.5cm)Left Atrium(2D)3.4 (1.6-4.0cm) IVSd0.8 (0.7-1.1cm)Aortic Root(2D)3.5 (2.0-3.7cm) LVDd5.5 (3.9-5.9cm)LVOT Diameter2.0 (1.8-2.4cm) PWd0.8 (0.7-1.1cm)LVDs4.7 (2.5-4.0cm) FS (%) 14.5 %SV45.4 ml Aortic Valve AoV Peak Asaf.91.3cm/sAoV VTI15.0cm AO Peak GR.3.3mmHgLVOT Peak Asaf.84.0cm/s AO Mean GR.2mmHgAVA (VMAX)2.92cm2 Mitral Valve MV E Ovywqdzu09.2cm/sMV E Peak Gr.2mmHg MV DECEL [id number] A Fdngzzyo18.1cm/s MV E Mean Gr.1mmHgE/A Ratio0.7 Pulmonary Valve PV Peak Qhmsorkg56.8cm/s Tricuspid Valve TR P. Bhdktbfg788oa/sTR Peak Gr.25mmHg Pulmonary Vein S1 Wcjoabkb24.6cm/sD2 Jlbdaucf78.1cm/s LEFT VENTRICLE The Left Ventricle is borderline dilated. There is normal left ventricular wall thickness. The systol ic function is moderately impaired. LV ejection fraction is 30 to 35%. There is global hypokinesis of the left ventricle. Transmitral Doppler flow pattern is Grade I-abnormal relaxation pattern. No left ventricle thrombus noted on this study. There is no ventricular septal defect visualized. There is n o left ventricular aneurysm. There is no mass noted in the left ventricle. RIGHT VENTRICLE The right ventricle is borderline dilated. There is normal right ventricular wall thickness. Systolic function is borderline reduced. ATRIA The left atrium size is normal. The right atrium size is normal. The interatrial septum is intact wit h no evidence for an atrial septal defect or patent foramen ovale as noted on 2-D or Doppler imaging. AORTIC VALVE The aortic valve is normal in structure and function. The aortic valve is trileaflet. Doppler and Col or Flow revealed no significant aortic regurgitation. There is no significant aortic valvular stenosi s. There is no aortic valvular vegetation. MITRAL VALVE The mitral valve is normal in structure and function. There is no evidence of mitral valve prolapse. There is no mitral valve stenosis. Doppler and Color-flow revealed trace mitral regurgitation. TRICUSPID VALVE Doppler and Color Flow revealed mild to moderate tricuspid regurgitation. The PA pressure was estimat ed at 40 mmHg. There is no tricuspid valve prolapse or vegetation. There is no tricuspid valve stenos is. PULMONIC VALVE The pulmonary valve is normal in structure and function. Doppler and Color Flow revealed no pulmonic valvular regurgitation. There is no pulmonic valvular stenosis. GREAT VESSELS The aortic root is normal in size. The ascending aorta is normal in size. The pulmonary artery is nor mal. The IVC is dilated (3.0 cm) with blunted inspiratory response. PERICARDIAL EFFUSION There is no pleural effusion. There is no evidence of significant pericardial effusion. Critical Notification Critical Value: No <Conclusion> The Left Ventricle is borderline dilated. The systolic function is moderately impaired. LV ejection fraction is 30 to 35%. There is global hypokinesis of the left ventricle. Doppler and Color Flow revealed no significant aortic regurgitation. There is no significant aortic valvular stenosis. Doppler and Color-flow revealed trace mitral regurgitation. Doppler and Color Flow revealed mild to moderate tricuspid regurgitation. The PA pressure was estimated at 40 mmHg. Signed by : Stephon Fernando MD Electronically Approved : 03/09/2022 11:44:47
[2022-03-09 12:16] LABS: BASO % 0 % (0-3); EOS % 0 % (0-3); HEMATOCRIT 21.5 % (39.0-53.0); HEMOGLOBIN 7.5 g/dL (13.0-17.5); LYMPH # 0.4 x10^3/uL (1.0-4.8); LYMPH % 5 % (24-48); MEAN CORPUSCULAR HEMOGLOBIN 28 pg (25-35); MEAN CORPUSCULAR HGB CONC 35 g/dL (31-37); MEAN CORPUSCULAR VOLUME 82 fL (79-100); MONO # 0.2 x10^3/uL (0.0-1.1); MONO % 3 % (0-9); NEUT # 7.2 x10^3/uL (1.8-7.7); NEUT % 92 % (31-73); PLATELET COUNT 33 x10^3/uL (140-400); RED BLOOD COUNT 2.63 x10^6/uL (4.30-5.70); RED CELL DISTRIBUTION WIDTH 14.1 % (11.5-14.5); WHITE BLOOD COUNT 7.9 x10^3/uL (4.0-11.0)
[2022-03-09 12:25] LABS: CALCIUM 8.9 mg/dL (8.5-10.1); CREATININE 5.5 mg/dL (0.7-1.3); GFR 11.8; POTASSIUM 3.8 mmol/L (3.5-5.1)
[2022-03-09 12:39] LABS: ALBUMIN 3.4 g/dL (3.4-5.0); DIRECT BILIRUBIN 0.5 mg/dL (0.0-0.2); TOTAL BILIRUBIN 1.1 mg/dL (0.2-1.0); TOTAL PROTEIN 6.1 g/dL (6.4-8.2)
[2022-03-09 12:40] LABS: PROTHROMBIN TIME PATIENT 13.7 SEC (11.7-14.0)
[2022-03-09] MEDS: POTASSIUM CHLORIDE 15 MEQ in DIALYSIS SOLUTION BGK 0/2.5 5,000 ML IV SCH ×3 (13:51→13:53)
--- NOTE | 2022-03-09 13:53 | PDOC ---
Provider Note Date of Service: DATE: 03/09/22 TIME: 13:45 Provider Note Anesthesia note:Requested for arterial line for patient in [facility] protocol. #20 ga Arrow cath placed in left radial artery using sterile technique, chlorhexidene prep, and Ultra sound guidance. Secured with tape and covered with op-site dressing. Trisha wave forms. Justifications for Admission Other Justification s/p cardiac arrest HENNA WATERS CRNA Mar 09, 2022 13:53
--- NOTE | 2022-03-09 15:00 | RAD ---
EXAM: XR CHEST 1V 03/09/2022 8:54 AM CLINICAL INDICATION: Line placement. Organ donor. COMPARISON: AP supine view of the chest TECHNIQUE: Chest radiograph 03/08/2022 FINDINGS: The endotracheal tube terminates 7.3 cm above the donte. There is a right IJ dialysis cat heter with tip projecting over the superior cavoatrial junction. An additional right internal jugular central venous catheter tip projects over the mid superior vena cava. A nasogastric tube enters the stomach and terminates out of view. The heart is normal in size. The lungs are well-expanded. There a re minimal bibasilar opacities. No pleural effusion or pneumothorax. There are old healed bilateral r ib fractures. IMPRESSION: 1. Lines and tubes as above. 2. Minimal bibasilar opacities, likely atelectasis. Electronically signed by: Maliha Mckeon MD (03/09/2022 2:57 PM) [id number]
[2022-03-09 17:55] LABS: BASO % 0 % (0-3); EOS % 0 % (0-3); HEMATOCRIT 23.9 % (39.0-53.0); LYMPH # 0.6 x10^3/uL (1.0-4.8); LYMPH % 5 % (24-48); MEAN CORPUSCULAR HEMOGLOBIN 28 pg (25-35); MEAN CORPUSCULAR HGB CONC 34 g/dL (31-37); MEAN CORPUSCULAR VOLUME 82 fL (79-100); MONO # 0.4 x10^3/uL (0.0-1.1); MONO % 4 % (0-9); NEUT # 9.9 x10^3/uL (1.8-7.7); NEUT % 91 % (31-73); PLATELET COUNT 36 x10^3/uL (140-400); RED BLOOD COUNT 2.91 x10^6/uL (4.30-5.70); RED CELL DISTRIBUTION WIDTH 14.4 % (11.5-14.5); WHITE BLOOD COUNT 10.9 x10^3/uL (4.0-11.0)
[2022-03-09 18:04] LABS: CREATININE 4.3 mg/dL (0.7-1.3); GFR 15.6; POTASSIUM 3.6 mmol/L (3.5-5.1)
[2022-03-09 18:06] LABS: PROTHROMBIN TIME PATIENT 13.1 SEC (11.7-14.0)
[2022-03-09 18:11] LABS: ALBUMIN 3.1 g/dL (3.4-5.0); DIRECT BILIRUBIN 0.5 mg/dL (0.0-0.2); PHOSPHORUS 2.8 mg/dL (2.6-4.7); TOTAL BILIRUBIN 0.9 mg/dL (0.2-1.0); TOTAL PROTEIN 5.9 g/dL (6.4-8.2)
--- NOTE | 2022-03-09 19:31 | RAD ---
INDICATION: Reason: Organ donor/ [place] / [place]. Instructions: / History: . COMPARISON: Chest x-ray from same day TECHNIQUE: Axial CT images obtained through the chest, abdomen and pelvis without contrast. One or more of the following individualized dose reduction techniques were utilized for this examinat ion: 1. Automated exposure control; 2. Adjustment of the mA and/or kV according to patient size; 3 . Use of iterative reconstruction technique. FINDINGS: Endotracheal tube within the trachea. Enteric tube within the stomach. There are some bilateral groundglass and nodular opacities within the lungs as well as regions of con solidation. There are 2 catheters identified with one of them tip in the right atrium and the other in the superi or vena cava. Limited assessment of solid organ structures and vasculature secondary to lack of intravenous contras t but no thoracic aortic aneurysm is seen. No abdominal aortic aneurysm. There is some free fluid within the pelvis. Catheter within the urinary bladder. No intrahepatic bile duct dilation. Limited assessment of pancreas without contrast. There is some possible fluid in the region. Spleen visualized. No hydronephrosis. No dilated loops of bowel to suggest obstruction. Linear lucency of the sternum which can be seen with nondisplaced fracture. There are several old bilateral rib fractures with callus formation. There is also acute rib fracture including the left fourth rib and possibly the third and fifth. Degenerative changes of the spine. Mild compression fracture of L1 vertebral body. IMPRESSION: * Lines and tubes as above. * There is some patchy nodular, consolidative and groundglass opacities in the bilateral lungs. Coul d be secondary to regions of atelectasis and edema or small airway inflammation with infectious or in flammatory etiology also in the differential given the nodular and consolidative component. A compone nt of contusion is also in the differential. * Free fluid is seen within the pelvis. * Multiple old rib fractures as well as some more acute appearing left rib fractures and sternal fra cture. L1 compression fracture. Electronically signed by: Hernan Lazcano MD (03/09/2022 7:29 PM) [id number]
--- NOTE | 2022-03-09 21:12 | PDOC ---
Date and Time CALLED FOR CENTRAL LINE after previous line inadvertently pulled out in x ray dept. Attempted rt and left IJ with the use of sonosite but unable to thread guide wire. Right femoral triple lumen catheter place without diff. Good blood return and flushed with normal saline. Sterile prep,drape and protocol followed. sutured in place and op site dressing Current Medications Current Medications Norepinephrine Bitartrate 32 mg/ Dextrose 282 ml @ 6.451 mls/ hr CONT PRN IV PER PROTOCOL Last administered on 03/07/22at 23:46; Start 03/07/22 at 17:00; Stop 03/08/22 at 03:32; Status DC Epinephrine HCl 10 mg/Sodium Chloride 260 ml @ 19.032 mls/ hr CONT PRN IV SEE I/O RECORD; Start 03/07/22 at 17:00 Insulin Human Regular 100 unit/ Sodium Chloride 101 ml @ 0 mls/hr CONT PRN IV PER PROTOCOL Last administered on 03/09/22at 11:41; Start 03/07/22 at 17:00 Vasopressin 20 unit/Sodium Chloride 101 ml @ 9 mls/hr CONT PRN IV SEE I/O RECORD; Start 03/07/22 at 17:00 Amiodarone HCl 450 mg/Dextrose 259 ml @ 17.267 mls/ hr CONT PRN IV SEE I/O RECORD Last administered on 03/07/22at 17:35; Start 03/07/22 at 17:15 Vecuronium [place] (Norcuron Bolus) 10 mg 1X ONCE IV Last administered on 03/07/22at 22:26; Start 03/07/22 at 17:15; Stop 03/07/22 at 17:21; Status DC Sodium Bicarbonate 150 meq/Dextrose 1,150 ml @ 75 mls/hr [id number] IV Last administered on 03/07/22at 19:37; Start 03/07/22 at 19:15; Stop 03/07/22 at 20:41; Status DC Sodium Chloride 1,000 ml @ 250 mls/hr Q4H IV Last administered on 03/07/22at 23:43; Start 03/07/22 at 19:15; Stop 03/08/22 at 01:11; Status DC Potassium Phosphate 15 mmol/ Sodium Chloride 105 ml @ 52.5 mls/hr Q2H IV Last administered on 03/07/22at 23:43; Start 03/07/22 at 21:00; Stop 03/08/22 at 00:59; Status DC Potassium Chloride/Water 100 ml @ 100 mls/hr Q1H IV Last administered on 03/08/22at 00:58; Start 03/07/22 at 23:00; Stop 03/08/22 at 00:59; Status DC Magnesium Sulfate 50 ml @ 25 mls/hr 1X ONCE IV Last administered on 03/07/22at 21:03; Start 03/07/22 at 21:00; Stop 03/07/22 at 22:59; Status DC Calcium Gluconate 1000 mg/Sodium Chloride 110 ml @ 110 mls/hr 1X ONCE IV Last administered on 03/07/22at 20:42; Start 03/07/22 at 21:00; Stop 03/07/22 at 21:59; Status DC Piperacillin Sod/ Tazobactam Sod 3.375 gm/Sodium Chloride 50 ml @ 100 mls/hr Q6HRS IV Last administered on 03/09/22at 17:34; Start 03/08/22 at 00:00 Albumin Human 500 ml @ 125 mls/hr 1X ONCE IV Last administered on 03/07/22at 20:47; Start 03/07/22 at 21:00; Stop 03/08/22 at 00:59; Status DC Heparin Sodium (Porcine) (Heparin Sodium) 5,000 unit Q8HRS SQ Last administered on 03/09/22at 14:23; Start 03/07/22 at 22:00 Vecuronium [place] (Norcuron Bolus) 10 mg STK-MED ONCE IV ; Start 03/07/22 at 22:18; Stop 03/07/22 at 22:18; Status DC Sodium Chloride 1,000 ml @ 30 mls/hr Q24H IV Last administered on 03/08/22at 23:56; Start 03/07/22 at 23:30 Calcium Gluconate 1000 mg/Sodium Chloride 110 ml @ 110 mls/hr 1X ONCE IV Last administered on 03/08/22at 01:13; Start 03/08/22 at 01:30; Stop 03/08/22 at 02:29; Status DC Sodium Chloride 1,000 ml @ 125 mls/hr Q8H IV Last administered on 03/08/22at 01 :15; Start 03/08/22 at 01:15; Stop 03/08/22 at 10:51; Status DC Dextrose 1,000 ml @ 125 mls/hr Q8H IV Last administered on 03/08/22at 10:32; Start 03/08/22 at 01:30; Stop 03/08/22 at 14:22; Status DC Albumin Human 50 ml @ 50 mls/hr 1X ONCE IV Last administered on 03/08/22at 01:50; Start 03/08/22 at 02:00; Stop 03/08/22 at 02:59; Status DC Furosemide (Lasix) 40 mg 1X ONCE IVP Last administered on 03/08/22at 01:51; Start 03/08/22 at 02:00; Stop 03/08/22 at 02:01; Status DC Norepinephrine Bitartrate 8 mg/ Dextrose 258 ml @ 23.607 mls/ hr CONT PRN IV PER PROTOCOL Last administered on 03/09/22at 03:53; Start 03/08/22 at 03:45 Albumin Human 50 ml @ 50 mls/hr 1X ONCE IV Last administered on 03/08/22at 05:55; Start 03/08/22 at 06:00; Stop 03/08/22 at 06:59; Status DC Glycerin/ Hypromellose/ Polyethylene (Artificial Tears) 1 drop PRN Q15MIN PRN OU DRY EYE Last administered on 03/08/22at 14:22; Start 03/08/22 at 06:15 Calcium Chloride (Calcium Chloride) 1,000 mg 1X ONCE IV Last administered on 03/08/22at 07:56; Start 03/08/22 at 07:45; Stop 03/08/22 at 07:50; Status DC Albumin Human 500 ml @ 125 mls/hr 1X ONCE IV Last administered on 03/08/22at 07:56; Start 03/08/22 at 07:45; Stop 03/08/22 at 11:44; Status DC Sodium Phosphate 30 mmol/Sodium Chloride 110 ml @ 105 mls/hr 1X ONCE IV Last administered on 03/08/22at 10:48; Start 03/08/22 at 10:00; Stop 03/08/22 at 11:02; Status DC Magnesium Sulfate 50 ml @ 25 mls/hr 1X ONCE IV Last administered on 03/08/22at 14:15; Start 03/08/22 at 14:00; Stop 03/08/22 at 15:59; Status DC Calcium Chloride (Calcium Chloride) 1,000 mg 1X ONCE IV Last administered on 03/08/22at 14:15; Start 03/08/22 at 14:00; Stop 03/08/22 at 14:09; Status DC Dextrose/Sodium Chloride 1,000 ml @ 250 mls/hr Q4H IV Last administered on 03/09/22at 05:45; Start 03/08/22 at 15:00 Dobutamine HCl/ Dextrose 250 ml @ 7.32 mls/hr CONT PRN IV SEE I/O RECORD Last administered on 03/08/22at 19:40; Start 03/08/22 at 19:30 Furosemide (Lasix) 40 mg 1X ONCE IVP Last administered on 03/08/22at 23:55; Start 03/08/22 at 23:45; Stop 03/08/22 at 23:46; Status DC Calcium Chloride (Calcium Chloride) 1,000 mg 1X ONCE IV Last administered on 03/09/22at 00:44; Start 03/09/22 at 01:00; Stop 03/09/22 at 01:01; Status DC Potassium Chloride 15 meq/ Bicarbonate Dialysis Soln w/ out KCl 5,007.5 ml @ 1,000 mls/ hr Q5H1M IV Last administered on 03/09/22at 13:51; Start 03/09/22 at 11:00 Potassium Chloride 15 meq/ Bicarbonate Dialysis Soln w/ out KCl 5,007.5 ml @ 1,000 mls/ hr Q5H1M IV Last administered on 03/09/22at 13:53; Start 03/09/22 at 11:00 Potassium Chloride 15 meq/ Bicarbonate Dialysis Soln w/ out KCl 5,007.5 ml @ 1,000 mls/ hr Q5H1M IV Last administered on 03/09/22at 13:52; Start 03/09/22 at 11:00 Albumin Human 100 ml @ 100 mls/hr 1X ONCE IV Last administered on 03/09/22at 09:35; Start 03/09/22 at 09:30; Stop 03/09/22 at 10:29; Status DC Albumin Human 100 ml @ 100 mls/hr 1X ONCE IV Last administered on 03/09/22at 10:52; Start 03/09/22 at 11:00; Stop 03/09/22 at 11:59; Status DC Active Scripts Active Reported Novolog Flexpen (Insulin Aspart) 100 Unit/1 Ml Insuln.pen 1 Unit SQ TIDBFRMEAL PRN Lantus Solostar (Insulin Glargine,Hum.rec.anlog) 100 Unit/1 Ml Insuln.pen 65 Unit SQ DAILY Pertinent Labs/Test Laboratory Tests Test 03/07/22 21:55 03/07/22 23:01 03/08/22 00:01 03/08/22 00:10 Glucose (Fingerstick) 186 mg/dL (70-99) 157 mg/dL (70-99) White Blood Count 8.0 x10^3/uL (4.0-11.0) Red Blood Count 3.81 x10^6/uL (4.30-5.70) Hemoglobin 10.8 g/dL (13.0-17.5) Hematocrit 30.8 % (39.0-53.0) Mean Corpuscular Volume 81 fL (79-100) Mean Corpuscular Hemoglobin 28 pg (25-35) Mean Corpuscular Hemoglobin Concent 35 g/dL (31-37) Red Cell Distribution Width 13.5 % (11.5-14.5) Platelet Count 36 x10^3/uL (140-400) Neutrophils (%) (Auto) 85 % (31-73) Lymphocytes (%) (Auto) 12 % (24-48) Monocytes (%) (Auto) 2 % (0-9) Eosinophils (%) (Auto) 0 % (0-3) Basophils (%) (Auto) 0 % (0-3) Neutrophils # (Auto) 6.8 x10^3/uL (1.8-7.7) Lymphocytes # (Auto) 1.0 x10^3/uL (1.0-4.8) Monocytes # (Auto) 0.2 x10^3/uL (0.0-1.1) Eosinophils # (Auto) 0.0 x10^3/uL (0.0-0.7) Basophils # (Auto) 0.0 x10^3/uL (0.0-0.2) Prothrombin Time 16.8 SEC (11.7-14.0) Prothromb Time International Ratio 1.4 (0.8-1.1) Activated Partial Thromboplast Time 32 SEC (24-38) Fibrinogen 175 mg/dL (200-440) Sodium Level 143 mmol/L (136-145) Potassium Level 3.9 mmol/L (3.5-5.1) Chloride Level 104 mmol/L (98-107) Carbon Dioxide Level 26 mmol/L (21-32) Anion Gap 13 (6-14) Blood Urea Nitrogen 46 mg/dL (8-26) Creatinine 3.5 mg/dL (0.7-1.3) Estimated GFR (Cockcroft-Gault) 19.8 Glucose Level 124 mg/dL (70-99) Lactic Acid Level 2.5 mmol/L (0.4-2.0) Calcium Level 8.2 mg/dL (8.5-10.1) Ionized Calcium 1.08 mmol/L (1.13-1.32) Phosphorus Level 1.8 mg/dL (2.6-4.7) Magnesium Level 2.2 mg/dL (1.8-2.4) Total Bilirubin 1.5 mg/dL (0.2-1.0) Direct Bilirubin 0.4 mg/dL (0.0-0.2) Gamma Glutamyl Transpeptidase 28 U/L (10-85) Aspartate Amino Transf (AST/SGOT) 551 U/L (15-37) Alanine Aminotransferase (ALT/SGPT) 233 U/L (16-63) Alkaline Phosphatase 64 U/L (46-116) Lactate Dehydrogenase 1138 U/L (85-227) Troponin I High Sensitivity 2723 ng/L (4-75) Total Protein 5.2 g/dL (6.4-8.2) Albumin 3.1 g/dL (3.4-5.0) Amylase Level 73 U/L (25-115) Lipase 132 U/L (73-393) SARS-CoV-2 Antigen (Rapid) Negative (NEGATIVE) Test 03/08/22 01:02 03/08/22 01:49 03/08/22 02:54 03/08/22 03:00 Glucose (Fingerstick) 122 mg/dL (70-99) 147 mg/dL (70-99) 132 mg/dL (70-99) Potassium Level 5.3 mmol/L (3.5-5.1) Phosphorus Level 2.5 mg/dL (2.6-4.7) Test 03/08/22 04:03 03/08/22 04:59 03/08/22 06:15 03/08/22 07:02 Glucose (Fingerstick) 132 mg/dL (70-99) 166 mg/dL (70-99) 213 mg/dL (70-99) White Blood Count 11.5 x10^3/uL (4.0-11.0) Red Blood Count 3.61 x10^6/uL (4.30-5.70) Hemoglobin 9.9 g/dL (13.0-17.5) Hematocrit 29.8 % (39.0-53.0) Mean Corpuscular Volume 82 fL (79-100) Mean Corpuscular Hemoglobin 27 pg (25-35) Mean Corpuscular Hemoglobin Concent 33 g/dL (31-37) Red Cell Distribution Width 14.1 % (11.5-14.5) Platelet Count 27 x10^3/uL (140-400) Neutrophils (%) (Auto) 91 % (31-73) Lymphocytes (%) (Auto) 7 % (24-48) Monocytes (%) (Auto) 2 % (0-9) Eosinophils (%) (Auto) 0 % (0-3) Basophils (%) (Auto) 0 % (0-3) Neutrophils # (Auto) 10.5 x10^3/uL (1.8-7.7) Lymphocytes # (Auto) 0.8 x10^3/uL (1.0-4.8) Monocytes # (Auto) 0.2 x10^3/uL (0.0-1.1) Eosinophils # (Auto) 0.0 x10^3/uL (0.0-0.7) Basophils # (Auto) 0.0 x10^3/uL (0.0-0.2) Prothrombin Time 15.3 SEC (11.7-14.0) Prothromb Time International Ratio 1.2 (0.8-1.1) Activated Partial Thromboplast Time 30 SEC (24-38) Fibrinogen 210 mg/dL (200-440) Sodium Level 135 mmol/L (136-145) Potassium Level 5.3 mmol/L (3.5-5.1) Chloride Level 100 mmol/L (98-107) Carbon Dioxide Level 19 mmol/L (21-32) Anion Gap 16 (6-14) Blood Urea Nitrogen 46 mg/dL (8-26) Creatinine 3.6 mg/dL (0.7-1.3) Estimated GFR (Cockcroft-Gault) 19.2 Glucose Level 275 mg/dL (70-99) Lactic Acid Level 1.8 mmol/L (0.4-2.0) Calcium Level 7.8 mg/dL (8.5-10.1) Ionized Calcium 1.08 mmol/L (1.13-1.32) Phosphorus Level 1.8 mg/dL (2.6-4.7) Magnesium Level 1.9 mg/dL (1.8-2.4) Total Bilirubin 1.1 mg/dL (0.2-1.0) Direct Bilirubin 0.4 mg/dL (0.0-0.2) Gamma Glutamyl Transpeptidase 27 U/L (10-85) Aspartate Amino Transf (AST/SGOT) 621 U/L (15-37) Alanine Aminotransferase (ALT/SGPT) 252 U/L (16-63) Alkaline Phosphatase 65 U/L (46-116) Lactate Dehydrogenase 1353 U/L (85-227) Troponin I High Sensitivity 2698 ng/L (4-75) Total Protein 5.2 g/dL (6.4-8.2) Albumin 3.1 g/dL (3.4-5.0) Amylase Level 59 U/L (25-115) Lipase 75 U/L (73-393) Test 03/08/22 08:03 03/08/22 09:11 03/08/22 09:58 03/08/22 11:12 Glucose (Fingerstick) 216 mg/dL (70-99) 293 mg/dL (70-99) 266 mg/dL (70-99) 262 mg/dL (70-99) Test 03/08/22 12:04 03/08/22 12:06 03/08/22 13:04 03/08/22 13:58 Glucose (Fingerstick) 272 mg/dL (70-99) 230 mg/dL (70-99) 231 mg/dL (70-99) White Blood Count 10.9 x10^3/uL (4.0-11.0) Red Blood Count 3.37 x10^6/uL (4.30-5.70) Hemoglobin 9.3 g/dL (13.0-17.5) Hematocrit 27.7 % (39.0-53.0) Mean Corpuscular Volume 82 fL (79-100) Mean Corpuscular Hemoglobin 28 pg (25-35) Mean Corpuscular Hemoglobin Concent 34 g/dL (31-37) Red Cell Distribution Width 14.2 % (11.5-14.5) Platelet Count 26 x10^3/uL (140-400) Neutrophils (%) (Auto) 91 % (31-73) Lymphocytes (%) (Auto) 7 % (24-48) Monocytes (%) (Auto) 1 % (0-9) Eosinophils (%) (Auto) 0 % (0-3) Basophils (%) (Auto) 0 % (0-3) Neutrophils # (Auto) 9.9 x10^3/uL (1.8-7.7) Lymphocytes # (Auto) 0.8 x10^3/uL (1.0-4.8) Monocytes # (Auto) 0.1 x10^3/uL (0.0-1.1) Eosinophils # (Auto) 0.0 x10^3/uL (0.0-0.7) Basophils # (Auto) 0.0 x10^3/uL (0.0-0.2) Prothrombin Time 15.5 SEC (11.7-14.0) Prothromb Time International Ratio 1.3 (0.8-1.1) Activated Partial Thromboplast Time 29 SEC (24-38) Fibrinogen 233 mg/dL (200-440) Sodium Level 137 mmol/L (136-145) Potassium Level 5.1 mmol/L (3.5-5.1) Chloride Level 99 mmol/L (98-107) Carbon Dioxide Level 20 mmol/L (21-32) Anion Gap 18 (6-14) Blood Urea Nitrogen 51 mg/dL (8-26) Creatinine 4.0 mg/dL (0.7-1.3) Estimated GFR (Cockcroft-Gault) 17.0 Glucose Level 269 mg/dL (70-99) Lactic Acid Level 1.9 mmol/L (0.4-2.0) Calcium Level 8.2 mg/dL (8.5-10.1) Ionized Calcium 1.14 mmol/L (1.13-1.32) Phosphorus Level 5.4 mg/dL (2.6-4.7) Magnesium Level 1.9 mg/dL (1.8-2.4) Total Bilirubin 1.0 mg/dL (0.2-1.0) Direct Bilirubin 0.4 mg/dL (0.0-0.2) Gamma Glutamyl Transpeptidase 31 U/L (10-85) Aspartate Amino Transf (AST/SGOT) 597 U/L (15-37) Alanine Aminotransferase (ALT/SGPT) 248 U/L (16-63) Alkaline Phosphatase 63 U/L (46-116) Lactate Dehydrogenase 1335 U/L (85-227) Troponin I High Sensitivity 1588 ng/L (4-75) Total Protein 5.5 g/dL (6.4-8.2) Albumin 3.6 g/dL (3.4-5.0) Amylase Level 41 U/L (25-115) Lipase 42 U/L (73-393) Test 03/08/22 15:04 03/08/22 16:01 03/08/22 17:03 03/08/22 17:35 Glucose (Fingerstick) 268 mg/dL (70-99) 232 mg/dL (70-99) 178 mg/dL (70-99) White Blood Count 9.0 x10^3/uL (4.0-11.0) Red Blood Count 3.07 x10^6/uL (4.30-5.70) Hemoglobin 8.6 g/dL (13.0-17.5) Hematocrit 25.4 % (39.0-53.0) Mean Corpuscular Volume 83 fL (79-100) Mean Corpuscular Hemoglobin 28 pg (25-35) Mean Corpuscular Hemoglobin Concent 34 g/dL (31-37) Red Cell Distribution Width 14.3 % (11.5-14.5) Platelet Count 33 x10^3/uL (140-400) Neutrophils (%) (Auto) 92 % (31-73) Lymphocytes (%) (Auto) 6 % (24-48) Monocytes (%) (Auto) 2 % (0-9) Eosinophils (%) (Auto) 0 % (0-3) Basophils (%) (Auto) 0 % (0-3) Neutrophils # (Auto) 8.3 x10^3/uL (1.8-7.7) Lymphocytes # (Auto) 0.6 x10^3/uL (1.0-4.8) Monocytes # (Auto) 0.2 x10^3/uL (0.0-1.1) Eosinophils # (Auto) 0.0 x10^3/uL (0.0-0.7) Basophils # (Auto) 0.0 x10^3/uL (0.0-0.2) Segmented Neutrophils % 25 % (35-66) Band Neutrophils % 55 % (0-9) Lymphocytes % 7 % (24-48) Monocytes % 5 % (0-10) Metamyelocytes % 5 % (0-0) Myelocytes % 3 % (0-0) Platelet Estimate Decreased (ADEQUATE) Hypochromasia Slight Prothrombin Time 14.7 SEC (11.7-14.0) Prothromb Time International Ratio 1.2 (0.8-1.1) Activated Partial Thromboplast Time 29 SEC (24-38) Fibrinogen 285 mg/dL (200-440) Sodium Level 138 mmol/L (136-145) Potassium Level 4.5 mmol/L (3.5-5.1) Chloride Level 102 mmol/L (98-107) Carbon Dioxide Level 22 mmol/L (21-32) Anion Gap 14 (6-14) Blood Urea Nitrogen 52 mg/dL (8-26) Creatinine 4.3 mg/dL (0.7-1.3) Estimated GFR (Cockcroft-Gault) 15.6 Glucose Level 264 mg/dL (70-99) Lactic Acid Level 2.1 mmol/L (0.4-2.0) Calcium Level 8.5 mg/dL (8.5-10.1) Ionized Calcium 1.21 mmol/L (1.13-1.32) Phosphorus Level 3.9 mg/dL (2.6-4.7) Magnesium Level 2.3 mg/dL (1.8-2.4) Total Bilirubin 0.9 mg/dL (0.2-1.0) Direct Bilirubin 0.4 mg/dL (0.0-0.2) Gamma Glutamyl Transpeptidase 34 U/L (10-85) Aspartate Amino Transf (AST/SGOT) 580 U/L (15-37) Alanine Aminotransferase (ALT/SGPT) 227 U/L (16-63) Alkaline Phosphatase 67 U/L (46-116) Lactate Dehydrogenase 1425 U/L (85-227) Creatine Kinase 04750 U/L (39-308) Troponin I High Sensitivity 1414 ng/L (4-75) Total Protein 5.2 g/dL (6.4-8.2) Albumin 3.2 g/dL (3.4-5.0) Amylase Level 31 U/L (25-115) Lipase 35 U/L (73-393) Test 03/08/22 18:11 03/08/22 19:16 03/08/22 19:58 03/08/22 20:56 Glucose (Fingerstick) 227 mg/dL (70-99) 246 mg/dL (70-99) 223 mg/dL (70-99) 229 mg/dL (70-99) Test 03/08/22 21:58 03/08/22 22:55 03/08/22 23:48 03/09/22 00:01 Glucose (Fingerstick) 190 mg/dL (70-99) 179 mg/dL (70-99) 196 mg/dL (70-99) White Blood Count 10.6 x10^3/uL (4.0-11.0) Red Blood Count 3.09 x10^6/uL (4.30-5.70) Hemoglobin 8.7 g/dL (13.0-17.5) Hematocrit 25.4 % (39.0-53.0) Mean Corpuscular Volume 82 fL (79-100) Mean Corpuscular Hemoglobin 28 pg (25-35) Mean Corpuscular Hemoglobin Concent 34 g/dL (31-37) Red Cell Distribution Width 14.1 % (11.5-14.5) Platelet Count 28 x10^3/uL (140-400) Neutrophils (%) (Auto) 93 % (31-73) Lymphocytes (%) (Auto) 4 % (24-48) Monocytes (%) (Auto) 3 % (0-9) Eosinophils (%) (Auto) 0 % (0-3) Basophils (%) (Auto) 0 % (0-3) Neutrophils # (Auto) 9.8 x10^3/uL (1.8-7.7) Lymphocytes # (Auto) 0.4 x10^3/uL (1.0-4.8) Monocytes # (Auto) 0.3 x10^3/uL (0.0-1.1) Eosinophils # (Auto) 0.0 x10^3/uL (0.0-0.7) Basophils # (Auto) 0.0 x10^3/uL (0.0-0.2) Prothrombin Time 13.8 SEC (11.7-14.0) Prothromb Time International Ratio 1.1 (0.8-1.1) Activated Partial Thromboplast Time 28 SEC (24-38) Fibrinogen 332 mg/dL (200-440) Sodium Level 138 mmol/L (136-145) Potassium Level 4.3 mmol/L (3.5-5.1) Chloride Level 102 mmol/L (98-107) Carbon Dioxide Level 23 mmol/L (21-32) Anion Gap 13 (6-14) Blood Urea Nitrogen 54 mg/dL (8-26) Creatinine 4.6 mg/dL (0.7-1.3) Estimated GFR (Cockcroft-Gault) 14.5 Glucose Level 218 mg/dL (70-99) Lactic Acid Level 1.6 mmol/L (0.4-2.0) Calcium Level 8.7 mg/dL (8.5-10.1) Ionized Calcium 1.14 mmol/L (1.13-1.32) Phosphorus Level 3.3 mg/dL (2.6-4.7) Magnesium Level 2.4 mg/dL (1.8-2.4) Total Bilirubin 0.9 mg/dL (0.2-1.0) Direct Bilirubin 0.4 mg/dL (0.0-0.2) Gamma Glutamyl Transpeptidase 30 U/L (10-85) Aspartate Amino Transf (AST/SGOT) 704 U/L (15-37) Alanine Aminotransferase (ALT/SGPT) 240 U/L (16-63) Alkaline Phosphatase 76 U/L (46-116) Lactate Dehydrogenase 1801 U/L (85-227) Troponin I High Sensitivity 1480 ng/L (4-75) Total Protein 5.7 g/dL (6.4-8.2) Albumin 3.0 g/dL (3.4-5.0) Amylase Level 26 U/L (25-115) Lipase 31 U/L (73-393) Test 03/09/22 00:55 03/09/22 02:08 03/09/22 03:00 03/09/22 03:58 Glucose (Fingerstick) 194 mg/dL (70-99) 178 mg/dL (70-99) 206 mg/dL (70-99) 210 mg/dL (70-99) Test 03/09/22 04:56 03/09/22 05:55 03/09/22 06:00 03/09/22 07:15 Glucose (Fingerstick) 202 mg/dL (70-99) 187 mg/dL (70-99) 196 mg/dL (70-99) White Blood Count 8.8 x10^3/uL (4.0-11.0) Red Blood Count 2.78 x10^6/uL (4.30-5.70) Hemoglobin 7.8 g/dL (13.0-17.5) Hematocrit 23.0 % (39.0-53.0) Mean Corpuscular Volume 83 fL (79-100) Mean Corpuscular Hemoglobin 28 pg (25-35) Mean Corpuscular Hemoglobin Concent 34 g/dL (31-37) Red Cell Distribution Width 14.2 % (11.5-14.5) Platelet Count 35 x10^3/uL (140-400) Neutrophils (%) (Auto) 93 % (31-73) Lymphocytes (%) (Auto) 5 % (24-48) Monocytes (%) (Auto) 3 % (0-9) Eosinophils (%) (Auto) 0 % (0-3) Basophils (%) (Auto) 0 % (0-3) Neutrophils # (Auto) 8.1 x10^3/uL (1.8-7.7) Lymphocytes # (Auto) 0.4 x10^3/uL (1.0-4.8) Monocytes # (Auto) 0.2 x10^3/uL (0.0-1.1) Eosinophils # (Auto) 0.0 x10^3/uL (0.0-0.7) Basophils # (Auto) 0.0 x10^3/uL (0.0-0.2) Prothrombin Time 13.6 SEC (11.7-14.0) Prothromb Time International Ratio 1.1 (0.8-1.1) Activated Partial Thromboplast Time 26 SEC (24-38) Fibrinogen 342 mg/dL (200-440) Sodium Level 140 mmol/L (136-145) Potassium Level 4.0 mmol/L (3.5-5.1) Chloride Level 103 mmol/L (98-107) Carbon Dioxide Level 21 mmol/L (21-32) Anion Gap 16 (6-14) Blood Urea Nitrogen 55 mg/dL (8-26) Creatinine 4.9 mg/dL (0.7-1.3) Estimated GFR (Cockcroft-Gault) 13.4 Glucose Level 217 mg/dL (70-99) Lactic Acid Level 1.3 mmol/L (0.4-2.0) Calcium Level 8.8 mg/dL (8.5-10.1) Ionized Calcium 1.24 mmol/L (1.13-1.32) Phosphorus Level 3.1 mg/dL (2.6-4.7) Total Bilirubin 0.9 mg/dL (0.2-1.0) Direct Bilirubin 0.3 mg/dL (0.0-0.2) Gamma Glutamyl Transpeptidase 33 U/L (10-85) Aspartate Amino Transf (AST/SGOT) 605 U/L (15-37) Alanine Aminotransferase (ALT/SGPT) 218 U/L (16-63) Alkaline Phosphatase 75 U/L (46-116) Lactate Dehydrogenase 1769 U/L (85-227) Troponin I High Sensitivity 903 ng/L (4-75) Total Protein 5.1 g/dL (6.4-8.2) Albumin 2.8 g/dL (3.4-5.0) Amylase Level 20 U/L (25-115) Lipase 29 U/L (73-393) Test 03/09/22 08:11 03/09/22 09:09 03/09/22 10:00 03/09/22 11:17 Glucose (Fingerstick) 141 mg/dL (70-99) 175 mg/dL (70-99) 169 mg/dL (70-99) 166 mg/dL (70-99) Test 03/09/22 12:00 03/09/22 12:02 03/09/22 13:31 03/09/22 14:06 White Blood Count 7.9 x10^3/uL (4.0-11.0) Red Blood Count 2.63 x10^6/uL (4.30-5.70) Hemoglobin 7.5 g/dL (13.0-17.5) Hematocrit 21.5 % (39.0-53.0) Mean Corpuscular Volume 82 fL (79-100) Mean Corpuscular Hemoglobin 28 pg (25-35) Mean Corpuscular Hemoglobin Concent 35 g/dL (31-37) Red Cell Distribution Width 14.1 % (11.5-14.5) Platelet Count 33 x10^3/uL (140-400) Neutrophils (%) (Auto) 92 % (31-73) Lymphocytes (%) (Auto) 5 % (24-48) Monocytes (%) (Auto) 3 % (0-9) Eosinophils (%) (Auto) 0 % (0-3) Basophils (%) (Auto) 0 % (0-3) Neutrophils # (Auto) 7.2 x10^3/uL (1.8-7.7) Lymphocytes # (Auto) 0.4 x10^3/uL (1.0-4.8) Monocytes # (Auto) 0.2 x10^3/uL (0.0-1.1) Eosinophils # (Auto) 0.0 x10^3/uL (0.0-0.7) Basophils # (Auto) 0.0 x10^3/uL (0.0-0.2) Prothrombin Time 13.7 SEC (11.7-14.0) Prothromb Time International Ratio 1.1 (0.8-1.1) Activated Partial Thromboplast Time 25 SEC (24-38) Fibrinogen 369 mg/dL (200-440) Sodium Level 141 mmol/L (136-145) Potassium Level 3.8 mmol/L (3.5-5.1) Chloride Level 104 mmol/L (98-107) Carbon Dioxide Level 23 mmol/L (21-32) Anion Gap 14 (6-14) Blood Urea Nitrogen 56 mg/dL (8-26) Creatinine 5.5 mg/dL (0.7-1.3) Estimated GFR (Cockcroft-Gault) 11.8 Glucose Level 175 mg/dL (70-99) Calcium Level 8.9 mg/dL (8.5-10.1) Phosphorus Level 3.0 mg/dL (2.6-4.7) Total Bilirubin 1.1 mg/dL (0.2-1.0) Direct Bilirubin 0.5 mg/dL (0.0-0.2) Gamma Glutamyl Transpeptidase 46 U/L (10-85) Aspartate Amino Transf (AST/SGOT) 539 U/L (15-37) Alanine Aminotransferase (ALT/SGPT) 216 U/L (16-63) Alkaline Phosphatase 76 U/L (46-116) Lactate Dehydrogenase 1645 U/L (85-227) Troponin I High Sensitivity 577 ng/L (4-75) Total Protein 6.1 g/dL (6.4-8.2) Albumin 3.4 g/dL (3.4-5.0) Amylase Level 16 U/L (25-115) Lipase 31 U/L (73-393) Glucose (Fingerstick) 166 mg/dL (70-99) 146 mg/dL (70-99) 145 mg/dL (70-99) Test 03/09/22 15:15 03/09/22 16:08 03/09/22 16:59 03/09/22 17:44 Glucose (Fingerstick) 144 mg/dL (70-99) 106 mg/dL (70-99) 109 mg/dL (70-99) 100 mg/dL (70-99) Test 03/09/22 17:45 03/09/22 19:20 White Blood Count 10.9 x10^3/uL (4.0-11.0) Red Blood Count 2.91 x10^6/uL (4.30-5.70) Hemoglobin 8.0 g/dL (13.0-17.5) Hematocrit 23.9 % (39.0-53.0) Mean Corpuscular Volume 82 fL (79-100) Mean Corpuscular Hemoglobin 28 pg (25-35) Mean Corpuscular Hemoglobin Concent 34 g/dL (31-37) Red Cell Distribution Width 14.4 % (11.5-14.5) Platelet Count 36 x10^3/uL (140-400) Neutrophils (%) (Auto) 91 % (31-73) Lymphocytes (%) (Auto) 5 % (24-48) Monocytes (%) (Auto) 4 % (0-9) Eosinophils (%) (Auto) 0 % (0-3) Basophils (%) (Auto) 0 % (0-3) Neutrophils # (Auto) 9.9 x10^3/uL (1.8-7.7) Lymphocytes # (Auto) 0.6 x10^3/uL (1.0-4.8) Monocytes # (Auto) 0.4 x10^3/uL (0.0-1.1) Eosinophils # (Auto) 0.0 x10^3/uL (0.0-0.7) Basophils # (Auto) 0.0 x10^3/uL (0.0-0.2) Prothrombin Time 13.1 SEC (11.7-14.0) Prothromb Time International Ratio 1.0 (0.8-1.1) Activated Partial Thromboplast Time 29 SEC (24-38) Fibrinogen 404 mg/dL (200-440) Sodium Level 141 mmol/L (136-145) Potassium Level 3.6 mmol/L (3.5-5.1) Chloride Level 106 mmol/L (98-107) Carbon Dioxide Level 24 mmol/L (21-32) Anion Gap 11 (6-14) Blood Urea Nitrogen 43 mg/dL (8-26) Creatinine 4.3 mg/dL (0.7-1.3) Estimated GFR (Cockcroft-Gault) 15.6 Glucose Level 109 mg/dL (70-99) Calcium Level 8.0 mg/dL (8.5-10.1) Phosphorus Level 2.8 mg/dL (2.6-4.7) Total Bilirubin 0.9 mg/dL (0.2-1.0) Direct Bilirubin 0.5 mg/dL (0.0-0.2) Gamma Glutamyl Transpeptidase 61 U/L (10-85) Aspartate Amino Transf (AST/SGOT) 556 U/L (15-37) Alanine Aminotransferase (ALT/SGPT) 208 U/L (16-63) Alkaline Phosphatase 79 U/L (46-116) Troponin I High Sensitivity 361 ng/L (4-75) Total Protein 5.9 g/dL (6.4-8.2) Albumin 3.1 g/dL (3.4-5.0) Amylase Level 14 U/L (25-115) Lipase 31 U/L (73-393) Glucose (Fingerstick) 165 mg/dL (70-99) Laboratory Tests Test 03/08/22 21:58 03/08/22 22:55 03/08/22 23:48 03/09/22 00:01 Glucose (Fingerstick) 190 mg/dL (70-99) 179 mg/dL (70-99) 196 mg/dL (70-99) White Blood Count 10.6 x10^3/uL (4.0-11.0) Red Blood Count 3.09 x10^6/uL (4.30-5.70) Hemoglobin 8.7 g/dL (13.0-17.5) Hematocrit 25.4 % (39.0-53.0) Mean Corpuscular Volume 82 fL (79-100) Mean Corpuscular Hemoglobin 28 pg (25-35) Mean Corpuscular Hemoglobin Concent 34 g/dL (31-37) Red Cell Distribution Width 14.1 % (11.5-14.5) Platelet Count 28 x10^3/uL (140-400) Neutrophils (%) (Auto) 93 % (31-73) Lymphocytes (%) (Auto) 4 % (24-48) Monocytes (%) (Auto) 3 % (0-9) Eosinophils (%) (Auto) 0 % (0-3) Basophils (%) (Auto) 0 % (0-3) Neutrophils # (Auto) 9.8 x10^3/uL (1.8-7.7) Lymphocytes # (Auto) 0.4 x10^3/uL (1.0-4.8) Monocytes # (Auto) 0.3 x10^3/uL (0.0-1.1) Eosinophils # (Auto) 0.0 x10^3/uL (0.0-0.7) Basophils # (Auto) 0.0 x10^3/uL (0.0-0.2) Prothrombin Time 13.8 SEC (11.7-14.0) Prothromb Time International Ratio 1.1 (0.8-1.1) Activated Partial Thromboplast Time 28 SEC (24-38) Fibrinogen 332 mg/dL (200-440) Sodium Level 138 mmol/L (136-145) Potassium Level 4.3 mmol/L (3.5-5.1) Chloride Level 102 mmol/L (98-107) Carbon Dioxide Level 23 mmol/L (21-32) Anion Gap 13 (6-14) Blood Urea Nitrogen 54 mg/dL (8-26) Creatinine 4.6 mg/dL (0.7-1.3) Estimated GFR (Cockcroft-Gault) 14.5 Glucose Level 218 mg/dL (70-99) Lactic Acid Level 1.6 mmol/L (0.4-2.0) Calcium Level 8.7 mg/dL (8.5-10.1) Ionized Calcium 1.14 mmol/L (1.13-1.32) Phosphorus Level 3.3 mg/dL (2.6-4.7) Magnesium Level 2.4 mg/dL (1.8-2.4) Total Bilirubin 0.9 mg/dL (0.2-1.0) Direct Bilirubin 0.4 mg/dL (0.0-0.2) Gamma Glutamyl Transpeptidase 30 U/L (10-85) Aspartate Amino Transf (AST/SGOT) 704 U/L (15-37) Alanine Aminotransferase (ALT/SGPT) 240 U/L (16-63) Alkaline Phosphatase 76 U/L (46-116) Lactate Dehydrogenase 1801 U/L (85-227) Troponin I High Sensitivity 1480 ng/L (4-75) Total Protein 5.7 g/dL (6.4-8.2) Albumin 3.0 g/dL (3.4-5.0) Amylase Level 26 U/L (25-115) Lipase 31 U/L (73-393) Test 03/09/22 00:55 03/09/22 02:08 03/09/22 03:00 03/09/22 03:58 Glucose (Fingerstick) 194 mg/dL (70-99) 178 mg/dL (70-99) 206 mg/dL (70-99) 210 mg/dL (70-99) Test 03/09/22 04:56 03/09/22 05:55 03/09/22 06:00 03/09/22 07:15 Glucose (Fingerstick) 202 mg/dL (70-99) 187 mg/dL (70-99) 196 mg/dL (70-99) White Blood Count 8.8 x10^3/uL (4.0-11.0) Red Blood Count 2.78 x10^6/uL (4.30-5.70) Hemoglobin 7.8 g/dL (13.0-17.5) Hematocrit 23.0 % (39.0-53.0) Mean Corpuscular Volume 83 fL (79-100) Mean Corpuscular Hemoglobin 28 pg (25-35) Mean Corpuscular Hemoglobin Concent 34 g/dL (31-37) Red Cell Distribution Width 14.2 % (11.5-14.5) Platelet Count 35 x10^3/uL (140-400) Neutrophils (%) (Auto) 93 % (31-73) Lymphocytes (%) (Auto) 5 % (24-48) Monocytes (%) (Auto) 3 % (0-9) Eosinophils (%) (Auto) 0 % (0-3) Basophils (%) (Auto) 0 % (0-3) Neutrophils # (Auto) 8.1 x10^3/uL (1.8-7.7) Lymphocytes # (Auto) 0.4 x10^3/uL (1.0-4.8) Monocytes # (Auto) 0.2 x10^3/uL (0.0-1.1) Eosinophils # (Auto) 0.0 x10^3/uL (0.0-0.7) Basophils # (Auto) 0.0 x10^3/uL (0.0-0.2) Prothrombin Time 13.6 SEC (11.7-14.0) Prothromb Time International Ratio 1.1 (0.8-1.1) Activated Partial Thromboplast Time 26 SEC (24-38) Fibrinogen 342 mg/dL (200-440) Sodium Level 140 mmol/L (136-145) Potassium Level 4.0 mmol/L (3.5-5.1) Chloride Level 103 mmol/L (98-107) Carbon Dioxide Level 21 mmol/L (21-32) Anion Gap 16 (6-14) Blood Urea Nitrogen 55 mg/dL (8-26) Creatinine 4.9 mg/dL (0.7-1.3) Estimated GFR (Cockcroft-Gault) 13.4 Glucose Level 217 mg/dL (70-99) Lactic Acid Level 1.3 mmol/L (0.4-2.0) Calcium Level 8.8 mg/dL (8.5-10.1) Ionized Calcium 1.24 mmol/L (1.13-1.32) Phosphorus Level 3.1 mg/dL (2.6-4.7) Total Bilirubin 0.9 mg/dL (0.2-1.0) Direct Bilirubin 0.3 mg/dL (0.0-0.2) Gamma Glutamyl Transpeptidase 33 U/L (10-85) Aspartate Amino Transf (AST/SGOT) 605 U/L (15-37) Alanine Aminotransferase (ALT/SGPT) 218 U/L (16-63) Alkaline Phosphatase 75 U/L (46-116) Lactate Dehydrogenase 1769 U/L (85-227) Troponin I High Sensitivity 903 ng/L (4-75) Total Protein 5.1 g/dL (6.4-8.2) Albumin 2.8 g/dL (3.4-5.0) Amylase Level 20 U/L (25-115) Lipase 29 U/L (73-393) Test 03/09/22 08:11 03/09/22 09:09 03/09/22 10:00 03/09/22 11:17 Glucose (Fingerstick) 141 mg/dL (70-99) 175 mg/dL (70-99) 169 mg/dL (70-99) 166 mg/dL (70-99) Test 03/09/22 12:00 03/09/22 12:02 03/09/22 13:31 03/09/22 14:06 White Blood Count 7.9 x10^3/uL (4.0-11.0) Red Blood Count 2.63 x10^6/uL (4.30-5.70) Hemoglobin 7.5 g/dL (13.0-17.5) Hematocrit 21.5 % (39.0-53.0) Mean Corpuscular Volume 82 fL (79-100) Mean Corpuscular Hemoglobin 28 pg (25-35) Mean Corpuscular Hemoglobin Concent 35 g/dL (31-37) Red Cell Distribution Width 14.1 % (11.5-14.5) Platelet Count 33 x10^3/uL (140-400) Neutrophils (%) (Auto) 92 % (31-73) Lymphocytes (%) (Auto) 5 % (24-48) Monocytes (%) (Auto) 3 % (0-9) Eosinophils (%) (Auto) 0 % (0-3) Basophils (%) (Auto) 0 % (0-3) Neutrophils # (Auto) 7.2 x10^3/uL (1.8-7.7) Lymphocytes # (Auto) 0.4 x10^3/uL (1.0-4.8) Monocytes # (Auto) 0.2 x10^3/uL (0.0-1.1) Eosinophils # (Auto) 0.0 x10^3/uL (0.0-0.7) Basophils # (Auto) 0.0 x10^3/uL (0.0-0.2) Prothrombin Time 13.7 SEC (11.7-14.0) Prothromb Time International Ratio 1.1 (0.8-1.1) Activated Partial Thromboplast Time 25 SEC (24-38) Fibrinogen 369 mg/dL (200-440) Sodium Level 141 mmol/L (136-145) Potassium Level 3.8 mmol/L (3.5-5.1) Chloride Level 104 mmol/L (98-107) Carbon Dioxide Level 23 mmol/L (21-32) Anion Gap 14 (6-14) Blood Urea Nitrogen 56 mg/dL (8-26) Creatinine 5.5 mg/dL (0.7-1.3) Estimated GFR (Cockcroft-Gault) 11.8 Glucose Level 175 mg/dL (70-99) Calcium Level 8.9 mg/dL (8.5-10.1) Phosphorus Level 3.0 mg/dL (2.6-4.7) Total Bilirubin 1.1 mg/dL (0.2-1.0) Direct Bilirubin 0.5 mg/dL (0.0-0.2) Gamma Glutamyl Transpeptidase 46 U/L (10-85) Aspartate Amino Transf (AST/SGOT) 539 U/L (15-37) Alanine Aminotransferase (ALT/SGPT) 216 U/L (16-63) Alkaline Phosphatase 76 U/L (46-116) Lactate Dehydrogenase 1645 U/L (85-227) Troponin I High Sensitivity 577 ng/L (4-75) Total Protein 6.1 g/dL (6.4-8.2) Albumin 3.4 g/dL (3.4-5.0) Amylase Level 16 U/L (25-115) Lipase 31 U/L (73-393) Glucose (Fingerstick) 166 mg/dL (70-99) 146 mg/dL (70-99) 145 mg/dL (70-99) Test 03/09/22 15:15 03/09/22 16:08 03/09/22 16:59 03/09/22 17:44 Glucose (Fingerstick) 144 mg/dL (70-99) 106 mg/dL (70-99) 109 mg/dL (70-99) 100 mg/dL (70-99) Test 03/09/22 17:45 03/09/22 19:20 White Blood Count 10.9 x10^3/uL (4.0-11.0) Red Blood Count 2.91 x10^6/uL (4.30-5.70) Hemoglobin 8.0 g/dL (13.0-17.5) Hematocrit 23.9 % (39.0-53.0) Mean Corpuscular Volume 82 fL (79-100) Mean Corpuscular Hemoglobin 28 pg (25-35) Mean Corpuscular Hemoglobin Concent 34 g/dL (31-37) Red Cell Distribution Width 14.4 % (11.5-14.5) Platelet Count 36 x10^3/uL (140-400) Neutrophils (%) (Auto) 91 % (31-73) Lymphocytes (%) (Auto) 5 % (24-48) Monocytes (%) (Auto) 4 % (0-9) Eosinophils (%) (Auto) 0 % (0-3) Basophils (%) (Auto) 0 % (0-3) Neutrophils # (Auto) 9.9 x10^3/uL (1.8-7.7) Lymphocytes # (Auto) 0.6 x10^3/uL (1.0-4.8) Monocytes # (Auto) 0.4 x10^3/uL (0.0-1.1) Eosinophils # (Auto) 0.0 x10^3/uL (0.0-0.7) Basophils # (Auto) 0.0 x10^3/uL (0.0-0.2) Prothrombin Time 13.1 SEC (11.7-14.0) Prothromb Time International Ratio 1.0 (0.8-1.1) Activated Partial Thromboplast Time 29 SEC (24-38) Fibrinogen 404 mg/dL (200-440) Sodium Level 141 mmol/L (136-145) Potassium Level 3.6 mmol/L (3.5-5.1) Chloride Level 106 mmol/L (98-107) Carbon Dioxide Level 24 mmol/L (21-32) Anion Gap 11 (6-14) Blood Urea Nitrogen 43 mg/dL (8-26) Creatinine 4.3 mg/dL (0.7-1.3) Estimated GFR (Cockcroft-Gault) 15.6 Glucose Level 109 mg/dL (70-99) Calcium Level 8.0 mg/dL (8.5-10.1) Phosphorus Level 2.8 mg/dL (2.6-4.7) Total Bilirubin 0.9 mg/dL (0.2-1.0) Direct Bilirubin 0.5 mg/dL (0.0-0.2) Gamma Glutamyl Transpeptidase 61 U/L (10-85) Aspartate Amino Transf (AST/SGOT) 556 U/L (15-37) Alanine Aminotransferase (ALT/SGPT) 208 U/L (16-63) Alkaline Phosphatase 79 U/L (46-116) Troponin I High Sensitivity 361 ng/L (4-75) Total Protein 5.9 g/dL (6.4-8.2) Albumin 3.1 g/dL (3.4-5.0) Amylase Level 14 U/L (25-115) Lipase 31 U/L (73-393) Glucose (Fingerstick) 165 mg/dL (70-99) LAST VITALS Vital Signs Date Time Temp Pulse Resp B/P (MAP) Pulse Ox O2 Delivery O2 Flow Rate FiO2 03/09/22 13:35 100 03/09/22 06:00 98.2 110 16 107/55 Ventilator 98.2 DAMIAN WATERS RN [facility] Mar 09, 2022 21:12
[2022-03-09 23:18] LABS: BASE EXCESS ABG -8 mmol/L (-3-3); HCO3 ABG 18 mmol/L (21-28); PCO2 ABG 39 mmHg (35-46); PO2 ABG 72 mmHg (85-108); SAT O2 ABG 93 % (92-99)
[2022-03-09 23:20] LABS: FIO2 ABG 100%
[2022-03-09] MEDS: IV NORMAL SALINE 1000ML BAG 1,000 ML IV SCH (23:30)
--- NOTE | 2022-03-09 23:30 | RAD ---
AP chest x-ray HISTORY: Central line placement. COMPARISON: CT chest March 09, 2022. FINDINGS: Right jugular dialysis catheter tip right atrium. Endotracheal tube tip 8 cm above the morena na at the upper thoracic trachea. Nasogastric tube extends to the abdomen. Size stable. No pneumothor ax. No pleural effusions. Worsening chest disease with increased density in the pulmonary opacities t hroughout the right upper and lower lung zone with stable left milder pulmonary opacities. Old healed bilateral rib fractures. IMPRESSION: Lines and tubes as described above. Worsening chest disease with increased density of the pulmonary opacities in the right lung, which could be asymmetric pulmonary edema, worsening asymmetr ic pneumonia or sequela of aspiration. The left pulmonary infiltrates are stable. See above. Electronically signed by: Cesar Montano MD (03/09/2022 11:28 PM) [facility]
[2022-03-10] MEDS: PIPERACILLIN/TAZOBACTAM 3.375 GM in IV NORMAL SALINE 50ML 50 ML IV SCH ×4 (00:01→17:40)
[2022-03-10] MEDS: NOREPINEPHRINE VIAL 8 MG in IV DEXTROSE 5% 250 ML IV PRN ×4 (00:04→21:08)
[2022-03-10 00:10] LABS: BASO % 0 % (0-3); EOS % 0 % (0-3); HEMATOCRIT 25.5 % (39.0-53.0); HEMOGLOBIN 8.4 g/dL (13.0-17.5); LYMPH # 0.5 x10^3/uL (1.0-4.8); LYMPH % 3 % (24-48); MEAN CORPUSCULAR HEMOGLOBIN 28 pg (25-35); MEAN CORPUSCULAR HGB CONC 33 g/dL (31-37); MEAN CORPUSCULAR VOLUME 84 fL (79-100); MONO # 0.3 x10^3/uL (0.0-1.1); MONO % 2 % (0-9); NEUT # 14.4 x10^3/uL (1.8-7.7); NEUT % 95 % (31-73); PLATELET COUNT 52 x10^3/uL (140-400); RED BLOOD COUNT 3.03 x10^6/uL (4.30-5.70); RED CELL DISTRIBUTION WIDTH 14.8 % (11.5-14.5); WHITE BLOOD COUNT 15.2 x10^3/uL (4.0-11.0)
[2022-03-10] MEDS: INSULIN REGULAR VIAL 100 UNIT in IV NORMAL SALINE 100ML 100 ML IV PRN ×2 (00:14→21:07)
[2022-03-10 00:19] LABS: PROTHROMBIN TIME PATIENT 14.2 SEC (11.7-14.0)
[2022-03-10 00:20] LABS: CALCIUM 7.6 mg/dL (8.5-10.1); CREATININE 4.5 mg/dL (0.7-1.3); GFR 14.8; POTASSIUM 3.9 mmol/L (3.5-5.1)
[2022-03-10 00:28] LABS: DIRECT BILIRUBIN 0.7 mg/dL (0.0-0.2); PHOSPHORUS 3.7 mg/dL (2.6-4.7); TOTAL BILIRUBIN 1.4 mg/dL (0.2-1.0); TOTAL PROTEIN 5.8 g/dL (6.4-8.2)
[2022-03-10] MEDS: IV DEXTROSE 5% - 0.9 % NACL 1,000 ML IV SCH ×7 (02:47→22:57)
[2022-03-10] MEDS: POTASSIUM CHLORIDE 15 MEQ in DIALYSIS SOLUTION BGK 0/2.5 5,000 ML IV SCH ×13 (02:52→23:37)
[2022-03-10] MEDS: HEPARIN for SUB-Q USE 5,000 UNIT/ML VIAL. SQ SCH ×3 (05:54→21:44)
[2022-03-10] MEDS ORDERED: ALBUMIN HUMAN 25% 100 ML IV ONE ×3 (06:00→17:45)
[2022-03-10 06:24] LABS: BASO % 0 % (0-3); EOS % 0 % (0-3); HEMATOCRIT 24.1 % (39.0-53.0); LYMPH # 0.7 x10^3/uL (1.0-4.8); LYMPH % 5 % (24-48); MEAN CORPUSCULAR HEMOGLOBIN 28 pg (25-35); MEAN CORPUSCULAR HGB CONC 33 g/dL (31-37); MEAN CORPUSCULAR VOLUME 83 fL (79-100); MONO # 0.3 x10^3/uL (0.0-1.1); MONO % 2 % (0-9); NEUT # 12.7 x10^3/uL (1.8-7.7); NEUT % 93 % (31-73); PLATELET COUNT 43 x10^3/uL (140-400); RED BLOOD COUNT 2.89 x10^6/uL (4.30-5.70); RED CELL DISTRIBUTION WIDTH 14.7 % (11.5-14.5); WHITE BLOOD COUNT 13.7 x10^3/uL (4.0-11.0)
--- NOTE | 2022-03-10 06:33 | RAD ---
AP chest x-ray HISTORY: Line placement. COMPARISON: Chest x-ray March 09, 2022 FINDINGS: Endotracheal tube tip 7 cm above the donte. Nasogastric tube extends to the abdomen. Right jugular large bore catheter tip right atrium. Heart size normal. No pneumothorax. No pleural effusio ns. Pulmonary infiltrates stable. Old healed rib fracture deformities. IMPRESSION: Lines and tubes as described above. Pulmonary infiltrates are stable. Electronically signed by: Cesar Montano MD (03/10/2022 6:30 AM) [facility]
[2022-03-10 06:40] LABS: PROTHROMBIN TIME PATIENT 14.1 SEC (11.7-14.0)
[2022-03-10 06:46] LABS: ALBUMIN 3.4 g/dL (3.4-5.0); CALCIUM 7.7 mg/dL (8.5-10.1); CREATININE 3.7 mg/dL (0.7-1.3); DIRECT BILIRUBIN 0.4 mg/dL (0.0-0.2); GFR 18.6; MAGNESIUM 2.2 mg/dL (1.8-2.4); PHOSPHORUS 2.9 mg/dL (2.6-4.7); TOTAL PROTEIN 6.3 g/dL (6.4-8.2)
[2022-03-10] MEDS ORDERED: CALCIUM CHLORIDE 1,000 MG in IV NORMAL SALINE 100ML 100 ML IV ONE ×2 (07:00→17:00)
[2022-03-10] MEDS ORDERED: VECURONIUM BOLUS 10 MG VIAL. IV ONE ×2 (09:13→09:15)
--- NOTE | 2022-03-10 13:17 | RAD ---
XR CHEST 1V 03/10/2022 12:56 PM INDICATION: Organ donor COMPARISON: 4.322 TECHNIQUE: Portable frontal view of the chest is provided. FINDINGS: The cardiomediastinal silhouette is within normal limits. Endotracheal tube terminates 6 cm above the level of the donte. Nasogastric tube is identified coursing below the diaphragm with the distal tip not visualized on this radiograph. Right IJ central venous catheter is in similar position. Mild per ihilar interstitial prominence. There are no significant pleural effusions. There is no pulmonary vascular congestion. No pneumothora x. No suspicious osseous abnormality. IMPRESSION: Aeration of the lungs appears similar to the prior examination. Support lines and tubes are in simila r position. Electronically signed by: Maru Tadeo MD (03/10/2022 1:15 PM) [facility]
[2022-03-10 13:32] LABS: PROTHROMBIN TIME PATIENT 14.2 SEC (11.7-14.0)
[2022-03-10 13:45] LABS: CREATININE 3.3 mg/dL (0.7-1.3); GFR 21.2; POTASSIUM 3.8 mmol/L (3.5-5.1); TOTAL BILIRUBIN 1.3 mg/dL (0.2-1.0); TOTAL PROTEIN 5.9 g/dL (6.4-8.2)
[2022-03-10 13:50] LABS: BASE EXCESS ABG 1 mmol/L (-3-3); HCO3 ABG 24 mmol/L (21-28); PCO2 ABG 27 mmHg (35-46); PO2 ABG 199 mmHg (85-108); SAT O2 ABG 98 % (92-99)
[2022-03-10 14:20] LABS: FIO2 ABG 100% VENT
[2022-03-10 15:44] LABS: BASO % 0 % (0-3); EOS % 1 % (0-3); HEMATOCRIT 22.5 % (39.0-53.0); HEMOGLOBIN 7.5 g/dL (13.0-17.5); LYMPH # 0.7 x10^3/uL (1.0-4.8); LYMPH % 7 % (24-48); MEAN CORPUSCULAR HEMOGLOBIN 28 pg (25-35); MEAN CORPUSCULAR HGB CONC 33 g/dL (31-37); MEAN CORPUSCULAR VOLUME 83 fL (79-100); MONO # 0.3 x10^3/uL (0.0-1.1); MONO % 3 % (0-9); NEUT # 8.6 x10^3/uL (1.8-7.7); NEUT % 89 % (31-73); PLATELET COUNT 33 x10^3/uL (140-400); RED BLOOD COUNT 2.71 x10^6/uL (4.30-5.70); RED CELL DISTRIBUTION WIDTH 14.5 % (11.5-14.5); WHITE BLOOD COUNT 9.6 x10^3/uL (4.0-11.0)
[2022-03-10] MEDS ORDERED: MAGNESIUM SULFATE 4GM 100 ML IV ONE (17:00)
[2022-03-10 17:48] LABS: BASE EXCESS ABG 0 mmol/L (-3-3); HCO3 ABG 25 mmol/L (21-28); PCO2 ABG 47 mmHg (35-46); PO2 ABG 434 mmHg (85-108); SAT O2 ABG 99 % (92-99)
[2022-03-10 17:52] LABS: FIO2 ABG 100% VENT
[2022-03-10 18:10] LABS: BASO % 0 % (0-3); EOS # 0.1 x10^3/uL (0.0-0.7); EOS % 1 % (0-3); HEMOGLOBIN 7.1 g/dL (13.0-17.5); LYMPH # 0.6 x10^3/uL (1.0-4.8); LYMPH % 8 % (24-48); MEAN CORPUSCULAR HEMOGLOBIN 28 pg (25-35); MEAN CORPUSCULAR HGB CONC 34 g/dL (31-37); MEAN CORPUSCULAR VOLUME 83 fL (79-100); MONO # 0.3 x10^3/uL (0.0-1.1); MONO % 4 % (0-9); NEUT # 6.9 x10^3/uL (1.8-7.7); NEUT % 88 % (31-73); PLATELET COUNT 28 x10^3/uL (140-400); RED BLOOD COUNT 2.53 x10^6/uL (4.30-5.70); RED CELL DISTRIBUTION WIDTH 14.6 % (11.5-14.5); WHITE BLOOD COUNT 7.9 x10^3/uL (4.0-11.0)
[2022-03-10] MEDS: POTASSIUM CHLORIDE 20MEQ 100 ML IV SCH ×2 (18:14→18:41)
[2022-03-10 18:18] LABS: PROTHROMBIN TIME PATIENT 14.8 SEC (11.7-14.0)
[2022-03-10 18:46] LABS: CALCIUM 7.9 mg/dL (8.5-10.1); CREATININE 2.9 mg/dL (0.7-1.3); GFR 24.6; POTASSIUM 3.8 mmol/L (3.5-5.1); TOTAL BILIRUBIN 1.2 mg/dL (0.2-1.0); TOTAL PROTEIN 5.9 g/dL (6.4-8.2)
[2022-03-10 19:54] VITALS: BP 89/58
[2022-03-10 20:54] VITALS: BP 92/60
[2022-03-10 21:30] LABS: ALBUMIN 3.4 g/dL (3.4-5.0); MAGNESIUM 2.2 mg/dL (1.8-2.4); PHOSPHORUS 2.6 mg/dL (2.6-4.7)
[2022-03-10 21:54] VITALS: BP 97/65
[2022-03-10 23:00] VITALS: BP 101/67
[2022-03-10] MEDS: IV NORMAL SALINE 1000ML BAG 1,000 ML IV SCH (23:30)
[2022-03-11] VITALS: BP 100/63
[2022-03-11 00:05] LABS: BASE EXCESS ABG 2 mmol/L (-3-3); HCO3 ABG 29 mmol/L (21-28); PCO2 ABG 53 mmHg (35-46); PO2 ABG 493 mmHg (85-108); SAT O2 ABG 99 % (92-99)
[2022-03-11 00:20] LABS: BASO % 0 % (0-3); EOS # 0.1 x10^3/uL (0.0-0.7); EOS % 2 % (0-3); HEMOGLOBIN 7.8 g/dL (13.0-17.5); LYMPH # 0.7 x10^3/uL (1.0-4.8); LYMPH % 9 % (24-48); MEAN CORPUSCULAR HEMOGLOBIN 28 pg (25-35); MEAN CORPUSCULAR HGB CONC 34 g/dL (31-37); MEAN CORPUSCULAR VOLUME 84 fL (79-100); MONO # 0.3 x10^3/uL (0.0-1.1); MONO % 4 % (0-9); NEUT # 5.9 x10^3/uL (1.8-7.7); NEUT % 85 % (31-73); PLATELET COUNT 42 x10^3/uL (140-400); RED BLOOD COUNT 2.76 x10^6/uL (4.30-5.70); RED CELL DISTRIBUTION WIDTH 14.8 % (11.5-14.5); WHITE BLOOD COUNT 6.9 x10^3/uL (4.0-11.0)
[2022-03-11 00:35] LABS: PROTHROMBIN TIME PATIENT 14.5 SEC (11.7-14.0)
[2022-03-11 00:39] LABS: ALBUMIN 3.6 g/dL (3.4-5.0); DIRECT BILIRUBIN 0.6 mg/dL (0.0-0.2)
[2022-03-11 00:51] LABS: CALCIUM 8.2 mg/dL (8.5-10.1); CREATININE 2.8 mg/dL (0.7-1.3); GFR 25.6; POTASSIUM 4.1 mmol/L (3.5-5.1); TOTAL BILIRUBIN 1.6 mg/dL (0.2-1.0); TOTAL PROTEIN 6.6 g/dL (6.4-8.2)
[2022-03-11 01:00] VITALS: BP 98/64
[2022-03-11] MEDS: PIPERACILLIN/TAZOBACTAM 3.375 GM in IV NORMAL SALINE 50ML 50 ML IV SCH ×3 (01:10→11:41)
[2022-03-11] MEDS ORDERED: ALBUMIN HUMAN 25% 100 ML IV ONE ×3 (02:30→15:00)
[2022-03-11 02:36] VITALS: BP 98/63
[2022-03-11] MEDS: IV DEXTROSE 5% - 0.9 % NACL 1,000 ML IV SCH ×3 (03:00→11:00)
[2022-03-11 03:36] VITALS: BP 117/77
[2022-03-11 06:02] LABS: BASE EXCESS ABG 0 mmol/L (-3-3); CORRECTED PCO2 ABG 38 mmHg; CORRECTED PH ABG 7.43; CORRECTED PO2 ABG 484 mmHg; HCO3 ABG 25 mmol/L (21-28); SAT O2 ABG 99 % (92-99)
[2022-03-11] MEDS: HEPARIN for SUB-Q USE 5,000 UNIT/ML VIAL. SQ SCH ×2 (06:11→14:44)
[2022-03-11] MEDS: POTASSIUM CHLORIDE 15 MEQ in DIALYSIS SOLUTION BGK 0/2.5 5,000 ML IV SCH ×4 (06:12→11:52)
[2022-03-11 06:13] LABS: BASO % 0 % (0-3); EOS # 0.2 x10^3/uL (0.0-0.7); EOS % 3 % (0-3); HEMOGLOBIN 8.5 g/dL (13.0-17.5); LYMPH # 0.7 x10^3/uL (1.0-4.8); LYMPH % 11 % (24-48); MEAN CORPUSCULAR HEMOGLOBIN 29 pg (25-35); MEAN CORPUSCULAR HGB CONC 34 g/dL (31-37); MEAN CORPUSCULAR VOLUME 84 fL (79-100); MONO # 0.3 x10^3/uL (0.0-1.1); MONO % 5 % (0-9); NEUT % 80 % (31-73); PLATELET COUNT 43 x10^3/uL (140-400); RED BLOOD COUNT 2.98 x10^6/uL (4.30-5.70); RED CELL DISTRIBUTION WIDTH 14.4 % (11.5-14.5); WHITE BLOOD COUNT 6.2 x10^3/uL (4.0-11.0)
[2022-03-11 06:17] LABS: PCO2 ABG 41 mmHg (35-46); PO2 ABG 493 mmHg (85-108)
--- NOTE | 2022-03-11 06:34 | RAD ---
Study: XR CHEST 1V Indication: Organ donor. Comparison: 03/10/2022 Findings: Central venous catheter tip terminates within the distal SVC. Enteric tube tip and sidehole extend in to the stomach and terminate beyond the inferior field of view. Endotracheal tube tip terminating bet ween 6 and 7 cm above the donte. Slightly improved aeration of the lungs with decreasing streaky opacities which again are greatest at the upper half of the right lung. No increasing effusion or pneumothorax. The transverse dimension o f the chest cavity measures 34.5 cm just below the apices of the diaphragm. Similar craniocaudal dime nsion of the lungs measuring around 28 cm. The cardiomediastinal silhouette at its most prominent tra nsverse dimension measures 16.3 cm. Several rib deformities again noted. Impression: 1. Adequate support device positioning, as above. 2. Streaky opacities bilaterally greatest at the right upper lung slightly decreased from the most re cent comparison. No newly developed focal airspace abnormality. Electronically signed by: JACOB ORR MD (03/11/2022 6:31 AM) [facility]
[2022-03-11 06:43] LABS: ALBUMIN 3.9 g/dL (3.4-5.0); DIRECT BILIRUBIN 0.6 mg/dL (0.0-0.2)
[2022-03-11 06:44] LABS: FIO2 ABG 100% VENT
[2022-03-11 06:47] LABS: PROTHROMBIN TIME PATIENT 14.7 SEC (11.7-14.0)
[2022-03-11 06:54] LABS: CALCIUM 8.2 mg/dL (8.5-10.1); CREATININE 2.7 mg/dL (0.7-1.3); GFR 26.7; MAGNESIUM 2.9 mg/dL (1.8-2.4); POTASSIUM 3.8 mmol/L (3.5-5.1); TOTAL BILIRUBIN 1.6 mg/dL (0.2-1.0); TOTAL PROTEIN 7.1 g/dL (6.4-8.2)
[2022-03-11 07:19] LABS: PHOSPHORUS 1.7 mg/dL (2.6-4.7)
[2022-03-11] MEDS: NOREPINEPHRINE VIAL 8 MG in IV DEXTROSE 5% 250 ML IV PRN ×2 (09:08→15:47)
[2022-03-11 11:52] LABS: BASE EXCESS ABG -2 mmol/L (-3-3); HCO3 ABG 23 mmol/L (21-28); PCO2 ABG 40 mmHg (35-46); PO2 ABG 471 mmHg (85-108); SAT O2 ABG 99 % (92-99)
[2022-03-11 11:57] LABS: FIO2 ABG 100% VENT
[2022-03-11 12:40] LABS: BASO % 0 % (0-3); EOS # 0.3 x10^3/uL (0.0-0.7); EOS % 4 % (0-3); HEMATOCRIT 25.3 % (39.0-53.0); HEMOGLOBIN 8.6 g/dL (13.0-17.5); LYMPH # 0.8 x10^3/uL (1.0-4.8); LYMPH % 13 % (24-48); MEAN CORPUSCULAR HEMOGLOBIN 29 pg (25-35); MEAN CORPUSCULAR HGB CONC 34 g/dL (31-37); MEAN CORPUSCULAR VOLUME 84 fL (79-100); MONO # 0.4 x10^3/uL (0.0-1.1); MONO % 6 % (0-9); NEUT # 4.9 x10^3/uL (1.8-7.7); NEUT % 77 % (31-73); PLATELET COUNT 49 x10^3/uL (140-400); RED BLOOD COUNT 3.01 x10^6/uL (4.30-5.70); RED CELL DISTRIBUTION WIDTH 14.5 % (11.5-14.5); WHITE BLOOD COUNT 6.4 x10^3/uL (4.0-11.0)
[2022-03-11 12:42] LABS: ALBUMIN 4.3 g/dL (3.4-5.0); DIRECT BILIRUBIN 0.7 mg/dL (0.0-0.2)
[2022-03-11 12:45] VITALS: BP 169/83
[2022-03-11 12:57] LABS: CALCIUM 8.3 mg/dL (8.5-10.1); CREATININE 2.6 mg/dL (0.7-1.3); GFR 27.9; POTASSIUM 4.2 mmol/L (3.5-5.1); PROTHROMBIN TIME PATIENT 14.6 SEC (11.7-14.0); TOTAL BILIRUBIN 1.9 mg/dL (0.2-1.0); TOTAL PROTEIN 7.2 g/dL (6.4-8.2)
[2022-03-11 12:58] LABS: MAGNESIUM 2.8 mg/dL (1.8-2.4)
[2022-03-11] MEDS ORDERED: AZITHROMYCIN 500 MG in IV NORMAL SALINE 250ML 250 ML IV ONE (14:30)
[2022-03-11] MEDS ORDERED: ACETYLCYSTEINE 20% for RESP TX 600 MG/3 ML. NEB ONE (14:30)
[2022-03-11] MEDS ORDERED: CALCIUM CHLORIDE 2,000 MG in IV NORMAL SALINE 100ML 100 ML IV ONE (15:00)
[2022-03-11] MEDS ORDERED: POTASSIUM PHOS,M-BASIC-D-BASIC 15 MMOL in IV NORMAL SALINE 100ML 100 ML IV SCH (15:00)
[2022-03-11] MEDS ORDERED: ACETYLCYSTEINE 20% NG ONE (15:00)
[2022-03-11 18:01] LABS: BASE EXCESS ABG -2 mmol/L (-3-3); HCO3 ABG 22 mmol/L (21-28); PCO2 ABG 36 mmHg (35-46); PO2 ABG > 503 mmHg (85-108); SAT O2 ABG 100 % (92-99)
[2022-03-11 18:11] LABS: FIO2 ABG 100% VENT
[2022-03-11 18:13] LABS: BASO % 0 % (0-3); EOS # 0.3 x10^3/uL (0.0-0.7); EOS % 5 % (0-3); HEMATOCRIT 23.9 % (39.0-53.0); HEMOGLOBIN 8.1 g/dL (13.0-17.5); LYMPH # 0.6 x10^3/uL (1.0-4.8); LYMPH % 12 % (24-48); MEAN CORPUSCULAR HEMOGLOBIN 28 pg (25-35); MEAN CORPUSCULAR HGB CONC 34 g/dL (31-37); MEAN CORPUSCULAR VOLUME 83 fL (79-100); MONO # 0.3 x10^3/uL (0.0-1.1); MONO % 6 % (0-9); NEUT % 77 % (31-73); PLATELET COUNT 49 x10^3/uL (140-400); RED BLOOD COUNT 2.88 x10^6/uL (4.30-5.70); RED CELL DISTRIBUTION WIDTH 14.7 % (11.5-14.5); WHITE BLOOD COUNT 5.2 x10^3/uL (4.0-11.0)
[2022-03-11 18:26] LABS: PROTHROMBIN TIME PATIENT 15.6 SEC (11.7-14.0)
[2022-03-11] MEDS ORDERED: VECURONIUM BOLUS 10 MG VIAL. IV ONE (18:32)
[2022-03-11] MEDS ORDERED: MIDAZOLAM HCL/PF 2 MG/2 ML VIAL. ONE (18:33)
[2022-03-11] MEDS ORDERED: fentaNYL PF VIAL 100 MCG/2 ML VIAL ONE (18:33)
[2022-03-11 18:39] LABS: ALBUMIN 4.3 g/dL (3.4-5.0); DIRECT BILIRUBIN 0.8 mg/dL (0.0-0.2)
[2022-03-11 18:52] LABS: CALCIUM 8.7 mg/dL (8.5-10.1); CREATININE 2.6 mg/dL (0.7-1.3); GFR 27.9; POTASSIUM 4.1 mmol/L (3.5-5.1); TOTAL BILIRUBIN 1.9 mg/dL (0.2-1.0); TOTAL PROTEIN 7.7 g/dL (6.4-8.2)
[2022-03-11 18:53] LABS: MAGNESIUM 2.8 mg/dL (1.8-2.4)
[2022-03-11] MEDS ORDERED: ePHEDrine PF IN SALINE 50 MG/10 ML SYRINGE. IV ONE (19:36)
[2022-03-11] MEDS ORDERED: ROCURONIUM 100 MG/10 ML VIAL. ONE ×2 (20:14→21:15)
[2022-03-11] MEDS ORDERED: PHENYLEPHRINE 10 MG/ML VIAL. ONE (21:13)
[2022-03-11] MEDS ORDERED: SEVOFLURANE > 120 MINUTES. IH ONE (21:13)
[2022-03-11] MEDS ORDERED: FUROSEMIDE 40 MG/4 ML VIAL. ONE ×2 (22:17→22:18)
[2022-03-11] MEDS ORDERED: FUROSEMIDE 20 MG/2 ML VIAL. ONE (22:20)
[2022-03-11] MEDS ORDERED: MANNITOL 25% 12.5 G/50 ML VIAL. IV ONE (23:00)
[2022-03-11] MEDS ORDERED: MANNITOL 20% PREMIX 500 ML IV ONE (23:00)
[2022-03-12] MEDS ORDERED: SEVOFLURANE > 120 MINUTES. IH ONE (06:42)
== END 2022-03-12 02:57 | DRG 983 ==
LOC: SURG 12:45 → 1 WEST ICU 12:46
PROC: 0BH17EZ Insertion of Endotracheal Airway into Trachea, Via Natural or Artificial Opening (ICD-10-PCS; 2022-03-07)
PROC: 02HV33Z Insertion of Infusion Device into Superior Vena Cava, Percutaneous Approach (ICD-10-PCS; 2022-03-07)
PROC: 5A1945Z Respiratory Ventilation, 24-96 Consecutive Hours (ICD-10-PCS; principal; 2022-03-08)
PROC: 30233R1 Transfusion of Nonautologous Platelets into Peripheral Vein, Percutaneous Approach (ICD-10-PCS; 2022-03-08)
PROC: 30233N1 Transfusion of Nonautologous Red Blood Cells into Peripheral Vein, Percutaneous Approach (ICD-10-PCS; 2022-03-08)
PROC: 0TT20ZZ Resection of Bilateral Kidneys, Open Approach (ICD-10-PCS; 2022-03-11)
PROC: 0BTM0ZZ Resection of Bilateral Lungs, Open Approach (ICD-10-PCS; 2022-03-11)
PROC: 0TT70ZZ Resection of Left Ureter, Open Approach (ICD-10-PCS; 2022-03-11)
PROC: 0TT60ZZ Resection of Right Ureter, Open Approach (ICD-10-PCS; 2022-03-11)
PROC: 07TB0ZZ Resection of Mesenteric Lymphatic, Open Approach (ICD-10-PCS; 2022-03-11)
PROC: 07TP0ZZ Resection of Spleen, Open Approach (ICD-10-PCS; 2022-03-11)
PROC: 03HY33Z Insertion of Infusion Device into Upper Artery, Percutaneous Approach (ICD-10-PCS; 2022-03-11)
PROC: 0DT Gastrointestinal System, Resection (ICD-10-PCS; 2022-03-11)
DX: Z52.4 Kidney donor; Z88.2 Allergy status to sulfonamides; Z20.822 Contact with and (suspected) exposure to COVID-19; Z52.89 Donor of other specified organs or tissues
CPT/HCPCS: 36415; 36430; 36600; 71045; 71250; 74176; 78606; 80048; 80076; 81001; 82040; 82150; 82247; 82248; 82310; 82550; 82805; 82962; 82977; 83036; 83605; 83615; 83690; 83735; 84075; 84100; 84132; 84155; 84439; 84450; 84460; 84484; 85007; 85025; 85384; 85610; 85730; 86850; 86900; 86901; 86920; 87040; 87070; 87086; 87106; 87205; 87426; 93306; 94003; 96374; A4209; A4223; A4322; A4930; A6255; A9512; J0456; J0610; J1250; J1644; J1815; J1940; J2250; J2370; J2543; J3010; J3475; J3480; J3490; J7030; J7042; J7050; J7060; P9016; P9035; P9045; P9046; C8929; G0378